=== PATIENT | male | born 1975 | race Caucasian/White ===

== ENCOUNTER 2021-07-09 01:53 | Emergency (ER) | payer MEDICAID, SELFPAY ==
[2021-07-09 02:12] VITALS: BP 131/87; PULSE 78; RESP 16; TEMP 35.9; O2SAT 98; BMI 24.4
[2021-07-09 02:44] VITALS: BP 96/52; PULSE 73; RESP 16; O2SAT 96
--- NOTE | 2021-07-09 02:45 | ED.PSYCH ---
HPI - Psych General Chief Complaint: Psychiatric Symptoms Stated Complaint: SI Time Seen by Provider: 07/09/21 02:45 Source: patient Mode of arrival: ambulatory Limitations: no limitations History of Present Illness HPI Narrative: Patient's history of substance abuse and depression under lot of stress lately has lost his job house no money at this time feels suicidal with plan to hang himself, has not slept in last 2 days no hallucination no delusions Related Data Allergies Allergy/AdvReac Type Severity Reaction Status Date / Time shellfish derived Allergy Severe SWELLING, Unverified 01/07/20 18:11 DIFFICULTY BREATHING Penicillins [PENICILLINS] AdvReac Unknown DEATHLY Unverified 01/07/20 18:11 ILL From CLEOCIN Allergy Unknown REDNESS, Uncoded 01/07/20 18:11 BURNING FEELING Review of Systems Review of Systems: Yes all other systems are reviewed and are negative [facility] Social History Social History Advance Directives: No Physical Exam Vital Signs: Vital Signs: Last Vital Signs Temp 96.7 F L 07/09/21 02:12 Pulse 73 07/09/21 02:44 Resp 16 07/09/21 02:44 BP 96/52 L 07/09/21 02:44 Pulse Ox 96 07/09/21 02:44 BMI result Body Mass Index 24.4 Appearance: Alert. Oriented X3. No acute distress. Eyes: PERRLA, No Nystagmus ENT: Pharynx normal. Oral Mucosa moist Neck: Normal inspection. Neck supple. CVS: Normal heart rate and rhythm. Pulses normal. Respiratory: No respiratory distress. Equal air entry bilateral, no wheezing/rales/rhonchi Abdomen: Soft and nontender. Bowel sounds are present, no mass palpable, no CVA tenderness Skin: Skin warm and dry. Normal skin color. Normal skin turgor. Extremities: No lower extremity edema. No calf tenderness IVDA track seth++ Psych: Feel depressed, suicidal no homicidal hallucinations Neuro: Oriented X 3. No motor deficit. No sensory deficit.No cerebellar signs , cranial nerves II-XII intact MDM - Psych MDM Narrative Medical decision making narrative: Patient urine positive for opiates fentanyl and cocaine and cannabis patient refused to let draw blood to check labs will get crisis to evaluate the patient Lab Data Attestation: I reviewed the patient's lab results. Labs: Lab Results 07/09/21 07/09/21 Range/Units 04:20 05:10 Urine Opiates Screen POSITIVE H (Not Detect) Urine Fentanyl Screen POSITIVE H (Not Detect) Ur Barbiturates Screen Not Detected (Not Detect) Ur Phencyclidine Scrn Not Detected (Not Detect) Ur Amphetamines Screen Not Detected (Not Detect) U Benzodiazepines Scrn Not Detected (Not Detect) Urine Cocaine Screen POSITIVE H (Not Detect) U Marijuana (THC) Screen POSITIVE H (Not Detect) COVID-19 ([facility]ANGELINA) Negative (Negative) COVID-19 Clin Com See Note Discharge Plan Discharge Clinical Impression: Suicidal ideation, Depression, Polysubstance abuse Patient Disposition: Still a Patient
[2021-07-09 04:42] LABS: COVID-19 Test Negative (Negative)
--- NOTE | 2021-07-09 05:02 | PC.NURSE ---
PT refused meds and labs multiple times. PT is currently sleeping in bed.
[2021-07-09 05:30] LABS: Amphetamine Screen Urine Not Detected (Not Detect); Barbiturates, Urine Not Detected (Not Detect); Benzodiazepines Screen Urine Not Detected (Not Detect); Cannabinoid Screen Urine POSITIVE (Not Detect); Cocaine Screen Urine POSITIVE (Not Detect); Fentanyl, urine POSITIVE (Not Detect); Opiate Screen Urine POSITIVE (Not Detect); Phencyclidine Screen Urine Not Detected (Not Detect)
--- NOTE | 2021-07-09 07:36 | MHC.CARE ---
Smart sheet submitted
[2021-07-09 07:41] VITALS: BP 104/63; PULSE 65; RESP 18; O2SAT 100
--- NOTE | 2021-07-09 10:18 | PC.NURSE ---
pt all of a sudden approaches pt observer and sts if i dont get my methadone im going to freak out . pt has been uncooperative w labs and other assessments on overnight shift. continued to refuse blood work this am. does not appear in any obvious distress at this time. sitting upright in bed.
--- NOTE | 2021-07-09 10:32 | MHC.RECOVSUP ---
Recovery Support note: This fiction writer spoke with Josafat at [facility] in [place] who confirms patient last dosed on 07/08/21 and that he received 125mg. Verification form faxed to pharmacy.
[2021-07-09] MEDS: methADONE HCl 20 MG/2 ML ORAL.CONC 125 MG PO (10:53)
--- NOTE | 2021-07-09 19:42 | PC.NURSE ---
patient requesitng to speak with RN, annoyed about plan of care and requesting updates. patient's TV also not functioning in room. patient updated on plan of care and RN attempts to fix TV without success. patient in no obvious distress at this time
[2021-07-09 23:01] VITALS: BP 113/67; PULSE 52; RESP 16; O2SAT 97
[2021-07-10] VITALS: BP 113/67; PULSE 50; RESP 16; TEMP 37.1; O2SAT 96
[2021-07-10] MEDS: LORazepam 1 MG TABLET PO (01:16)
--- NOTE | 2021-07-10 11:00 | PC.NURSE ---
client has been behaving in an abrasive manner, kitchen was late with his meal (one hour to deliver) and methadone had taken some time (nearly two hours) to be ordered. declined to take feet off table when asked, posturing in a threatening way and had asked to leave, this information relayed to care team and provider i only wanted to stay one night advised client to seek other housing if he really didnt have concerns regarding safety and mental health.
[2021-07-10] MEDS: methADONE HCl 20 MG/2 ML ORAL.CONC 125 MG PO (11:13)
[2021-07-10] MEDS: Omeprazole 20 MG CAPSULE.DR PO (13:02)
== END 2021-07-10 15:22 | disposition home or self-care (01) ==
PROVIDERS: Emergency Provider Internal Medicine
DX: F33.1 Major depressive disorder, recurrent, moderate (principal); R45.851 Suicidal ideations; F43.9 Reaction to severe stress, unspecified; F14.10 Cocaine abuse, uncomplicated; Z20.822 Contact with and (suspected) exposure to COVID-19; Z79.899 Other long term (current) drug therapy
CPT/HCPCS: 80307; 87635; 99284

== ENCOUNTER 2021-07-12 03:29 | Inpatient (IN) | payer OTHER, SELFPAY ==
--- NOTE | ~2021-07-12 | XR_ITS ---
EXAMINATION: XR CHEST CLINICAL INFORMATION: Dyspnea. COMPARISON: 09/09/2018 chest radiograph. TECHNIQUE: 2 views of the chest were obtained. FINDINGS: No significant abnormality is noted involving the heart, lungs, mediastinum, bony thorax or soft tissues. XR/XR chest 2V IMPRESSION: No acute cardiopulmonary process.
--- NOTE | ~2021-07-12 | US_ITS ---
EXAMINATION: US VENOUS ULTRASOUND WITH DOPPLER LOWER EXTREMITY, BILATERAL CLINICAL INFORMATION: Swelling. COMPARISON: None TECHNIQUE: Ultrasound of the deep veins is performed from the hip to the calf with compression sonography and color and pulse Doppler assessment. Spectral analysis with color-flow imaging is performed. FINDINGS: RIGHT: There is normal venous compression and respiratory variation and augmented flow. The visualized common femoral vein, superficial femoral vein, profunda femoral vein, popliteal vein, and the trifurcation region shows no evidence of deep venous thrombosis. There is no significant popliteal fossa cyst. LEFT: There is normal venous compression and respiratory variation and augmented flow. The visualized common femoral vein, superficial femoral vein, profunda femoral vein, popliteal vein, and the trifurcation region shows no evidence of deep venous thrombosis. There is no significant popliteal fossa cyst. If the patient's symptoms persist, followup ultrasound in 5 days 7 days might be of value to exclude proximal propagation from a non-visualized calf vein. US/US venous duplex LE BI IMPRESSION: No DVT demonstrated in the bilateral lower extremity.
[2021-07-12 03:45] VITALS: BP 131/85; PULSE 75; RESP 16; TEMP 37.4; O2SAT 97; BMI 23.7
[2021-07-12 04:18] LABS: MANUAL DIFF FLAG NO
[2021-07-12 04:19] LABS: Amphetamine Screen Urine Not Detected (Not Detect); Barbiturates, Urine Not Detected (Not Detect); Benzodiazepines Screen Urine Not Detected (Not Detect); Cannabinoid Screen Urine POSITIVE (Not Detect); Cocaine Screen Urine POSITIVE (Not Detect); Fentanyl, urine POSITIVE (Not Detect); Opiate Screen Urine POSITIVE (Not Detect); Phencyclidine Screen Urine Not Detected (Not Detect)
[2021-07-12 04:28] LABS: COVID-19 Test Negative (Negative)
[2021-07-12 04:30] LABS: Basophils Absolute Auto 0.1 X10*3/uL (0.0-0.2); Basophils Percent Auto 0.6 % (0-2); Eosinophils Absolute Auto 0.1 X10*3/uL (0.0-0.4); Eosinophils Percent Auto 1.7 % (0-4); Hematocrit 42.3 % (42.0-52.0); Hemoglobin 14.2 g/dl (14.0-18.0); Imm Gran Abs Auto 0.02 X10*3/uL (0.00-0.03); Imm Gran Pct Auto 0.2 % (0.0-0.4); Lymphocytes Absolute Auto 2.3 X10*3/uL (1.2-4.9); Lymphocytes Percent Auto 27.6 % (20-40); Mean Corpuscular HGB Conc 33.6 g/dl (31.0-36.0); Mean Corpuscular Hemoglobin 32.5 pg (27.0-33.0); Mean Corpuscular Volume 96.8 fL (80.0-98.0); Mean Platelet Volume 9.8 fL (9.4-12.4); Monocytes Absolute Auto 0.7 X10*3/uL (0.1-1.2); Monocytes Percent Auto 7.9 % (2-11); Neutrophils Absolute Auto 5.2 x10*3/uL (2.0-8.3); Platelet Count 198 X10*3/uL (160-400); Red Blood Count 4.37 X10*6/uL (4.60-5.80); Red Cell Distribution Width 11.9 % (11.0-16.0); White Blood Count 8.4 X10*3/uL (4.8-10.8)
[2021-07-12 04:35] LABS: Ethanol < 10 mg/dL
[2021-07-12 04:36] LABS: Anion Gap 16 (12-20); Blood Urea Nitrogen 18 mg/dL (9-16); Calcium 9.4 mg/dL (8.4-10.2); Carbon Dioxide 26 mmol/L (22-29); Chloride 104 mmol/L (96-108); Creatinine Clr Calc Pharmacy 100.6; Estimated Glomerular Filt Rate > 60; Glucose Random 111 mg/dL (60-115); Sodium 142 mmol/L (135-145)
--- NOTE | 2021-07-12 05:33 | ED.PSYCH ---
HPI - Psych General Chief Complaint: Psychiatric Symptoms Stated Complaint: Crisis Time Seen by Provider: 07/12/21 05:33 Source: patient Mode of arrival: ambulatory History of Present Illness HPI Narrative: 45-year-old male with history of depression and substance use disorder currently on methadone program presents for complaints of depression but denies suicidal ideation, then will change in stay ?I do not have anything to live for?. Otherwise, patient denies any fever, chills, shortness of breath, GI or symptoms. Patient states that he was Narcan and by 2 of his friends yesterday. Related Data Home Medications Medication Instructions Recorded Confirmed methadone 10 mg tablet 125 mg PO DAILY 07/10/21 07/12/21 Allergies Allergy/AdvReac Type Severity Reaction Status Date / Time shellfish derived Allergy Severe SWELLING, Unverified 01/07/20 18:11 DIFFICULTY BREATHING Penicillins [PENICILLINS] AdvReac Unknown DEATHLY Unverified 01/07/20 18:11 ILL From CLEOCIN Allergy Unknown REDNESS, Uncoded 01/07/20 18:11 BURNING FEELING Review of Systems Review of Systems: Pertinent positives and negatives as stated in HPI 10 point review of systems is otherwise negative. [facility] Past Medical History Source: nursing notes reviewed Social History Social History Advance Directives: No Physical Exam Vital Signs: Vital Signs: Last Vital Signs Temp 99.3 F 07/12/21 03:45 Pulse 75 07/12/21 03:45 Resp 16 07/12/21 03:45 BP 131/85 07/12/21 03:45 Pulse Ox 97 07/12/21 03:45 BMI result Body Mass Index 23.7 VITAL SIGNS: Reviewed. GENERAL: Well developed, well nourished, in no acute distress. HEAD: Normocephalic/atraumatic EYES: PERRLA, EOMI OROPHARYNX: no oral lesions noted, posterior pharynx clear LUNGS: Normal breath sounds. No adventitious sounds or accessory muscle use. SpO2<97> CARDIOVASCULAR: Regular rate and rhythm without noted murmurs ABDOMEN: Soft, non-tender, non-distended with bowel sounds. SKIN: Inspection of the skin reveals no rashes NEUROLOGIC: Alert and oriented x 4. Strength and sensation to light touch were grossly intact x 4, cranial nerves 2-12 grossly intact Course Course Course Narrative: 45-year-old male with history of depression and polysubstance use disorder presents with depression and vague suicidal thoughts and states that he is not interested in detox. He is noted be currently in a methadone program and is otherwise medically cleared for further evaluation by the crisis team. Reevaluation(s) Reevaluation #1: Patient placed in physician observation because the patient needed more time for crisis evaluation. At the time observation was started the patient's vital signs were stable, patient is alert and oriented, neuro: Nonfocal, CV RRR, lungs clear Time: 06:10 MDM - Psych Lab Data Result diagrams: 07/12/21 04:09 07/12/21 04:12 Labs: Lab Results 07/12/21 07/12/21 07/12/21 Range/Units 03:55 03:57 04:09 WBC 8.4 (4.8-10.8) X10*3/uL RBC 4.37 L (4.60-5.80) X10*6/uL Hgb 14.2 (14.0-18.0) g/dl Hct 42.3 (42.0-52.0) % MCV 96.8 (80.0-98.0) fL MCH 32.5 (27.0-33.0) pg MCHC 33.6 (31.0-36.0) g/dl RDW 11.9 (11.0-16.0) % Plt Count 198 (160-400) X10*3/uL MPV 9.8 (9.4-12.4) fL Immature Gran % (Auto) 0.2 (0.0-0.4) % Neut % (Auto) 62.0 (45-73) % Lymph % (Auto) 27.6 (20-40) % [place] % (Auto) 7.9 (2-11) % Eos % (Auto) 1.7 (0-4) % Baso % (Auto) 0.6 (0-2) % Lymph # (Auto) 2.3 (1.2-4.9) X10*3/uL [place] # (Auto) 0.7 (0.1-1.2) X10*3/uL Eos # (Auto) 0.1 (0.0-0.4) X10*3/uL Baso # (Auto) 0.1 (0.0-0.2) X10*3/uL Abs Immat Gran (auto) 0.02 (0.00-0.03) X10*3/uL Absolute Neuts (auto) 5.2 (2.0-8.3) x10*3/uL Absolute Nucleated RBC 0.000 (0.0-0.012) X10*3/uL Nucleated RBC % (auto) 0.0 (0.0-0.2) /100WBC Sodium (135-145) mmol/L Potassium (3.3-5.1) mmol/L Chloride (96-108) mmol/L Carbon Dioxide (22-29) mmol/L Anion Gap (12-20) BUN (9-16) mg/dL Creatinine (0.5-1.4) mg/dL Estim Creat Clear Calc Estimated GFR Random Glucose (60-115) mg/dL Calcium (8.4-10.2) mg/dL Urine Opiates Screen POSITIVE H (Not Detect) Urine Fentanyl Screen POSITIVE H (Not Detect) Ur Barbiturates Screen Not Detected (Not Detect) Ur Phencyclidine Scrn Not Detected (Not Detect) Ur Amphetamines Screen Not Detected (Not Detect) U Benzodiazepines Scrn Not Detected (Not Detect) Urine Cocaine Screen POSITIVE H (Not Detect) U Marijuana (THC) Screen POSITIVE H (Not Detect) Ethyl Alcohol mg/dL COVID-19 (EVANGELINA) Negative (Negative) COVID-19 Clin Com See Note 07/12/21 07/12/21 Range/Units 04:09 04:12 WBC (4.8-10.8) X10*3/uL RBC (4.60-5.80) X10*6/uL Hgb (14.0-18.0) g/dl Hct (42.0-52.0) % MCV (80.0-98.0) fL MCH (27.0-33.0) pg MCHC (31.0-36.0) g/dl RDW (11.0-16.0) % Plt Count (160-400) X10*3/uL MPV (9.4-12.4) fL Immature Gran % (Auto) (0.0-0.4) % Neut % (Auto) (45-73) % Lymph % (Auto) (20-40) % [place] % (Auto) (2-11) % Eos % (Auto) (0-4) % Baso % (Auto) (0-2) % Lymph # (Auto) (1.2-4.9) X10*3/uL [place] # (Auto) (0.1-1.2) X10*3/uL Eos # (Auto) (0.0-0.4) X10*3/uL Baso # (Auto) (0.0-0.2) X10*3/uL Abs Immat Gran (auto) (0.00-0.03) X10*3/uL Absolute Neuts (auto) (2.0-8.3) x10*3/uL Absolute Nucleated RBC (0.0-0.012) X10*3/uL Nucleated RBC % (auto) (0.0-0.2) /100WBC Sodium 142 (135-145) mmol/L Potassium 4.0 (3.3-5.1) mmol/L Chloride 104 (96-108) mmol/L Carbon Dioxide 26 (22-29) mmol/L Anion Gap 16 (12-20) BUN 18 H (9-16) mg/dL Creatinine 1.07 (0.5-1.4) mg/dL Estim Creat Clear Calc 100.6 Estimated GFR > 60 Random Glucose 111 (60-115) mg/dL Calcium 9.4 (8.4-10.2) mg/dL Urine Opiates Screen (Not Detect) Urine Fentanyl Screen (Not Detect) Ur Barbiturates Screen (Not Detect) Ur Phencyclidine Scrn (Not Detect) Ur Amphetamines Screen (Not Detect) U Benzodiazepines Scrn (Not Detect) Urine Cocaine Screen (Not Detect) U Marijuana (THC) Screen (Not Detect) Ethyl Alcohol < 10 mg/dL COVID-19 ([facility]ANGELINA) (Negative) COVID-19 Clin Com Discharge Plan Discharge Clinical Impression: Depression, Suicidal ideation, Substance use disorder Patient Disposition: Still a Patient Prescriptions: No Action methadone 10 mg Tablet 125 mg PO DAILY 0RF
--- NOTE | 2021-07-12 06:00 | PC.NURSE ---
Patient stayed awake since he came in, no distress observed/reported, [facility] referral completed/confirmed pending evaluation in the morning, behavior appropriate, patient is currently not on any medication but takes Methadone, Methadone dose verified/copy faxed to pharmacy/provider notified/pending MAR update, VSS, will continue to monitor.
--- NOTE | 2021-07-12 07:16 | PC.NURSE ---
patient appears to remain asleep at present respirations are even and unlabored patient appears in no distress
[2021-07-12] MEDS: methADONE HCl 20 MG/2 ML ORAL.CONC 125 MG PO (13:23)
--- NOTE | 2021-07-12 15:41 | MHC.CARE ---
Assessed by the CARE Team - plan for [facility] bedsearch
[2021-07-12 18:05] VITALS: BP 122/74; PULSE 53; RESP 15; TEMP 36.6; O2SAT 96
--- NOTE | 2021-07-13 | ECG_ITS ---
Test Reason : cocaine use Blood Pressure : / mmHG Vent. Rate : 055 BPM Atrial Rate : 055 BPM P-R Int : 140 ms QRS Dur : 096 ms QT Int : 448 ms P-R-T Axes : 056 017 045 degrees QTc Int : 428 ms Sinus bradycardia Otherwise normal ECG When compared with ECG of 09-SEP-2018 18:50, No significant change was found Referred By: Generic ED Physician Electronically Signed By:LUIS ALFREDO BOONE MD
[2021-07-13 01:27] VITALS: BP 134/79; PULSE 55; RESP 17; TEMP 37; O2SAT 96
--- NOTE | 2021-07-13 05:59 | PC.NURSE ---
Patient slept through the night, no distress observed/reported, behavior appropriate and non concerning, disposition per care team is voluntary inpatient bed search, medication compliant, expressing need well, appetite good, VSS, will continue to monitor.
--- NOTE | 2021-07-13 07:06 | PC.NURSE ---
Care assumed at this time, report from Clayton SMITH. Pt sleeping at this time, resp reg and even, NAD. Plan for admission to [facility], time unk.
[2021-07-13 08:13] VITALS: BP 127/57; PULSE 59; RESP 17; TEMP 37.2; O2SAT 98
[2021-07-13] MEDS: Omeprazole 20 MG CAPSULE.DR PO (09:12)
[2021-07-13] MEDS: methADONE HCl 20 MG/2 ML ORAL.CONC 125 MG PO (09:13)
--- NOTE | 2021-07-13 11:55 | PC.NURSE ---
Report given to Shen SMITH.
[2021-07-13 14:21] VITALS: BP 135/83; PULSE 61; RESP 18; TEMP 36.4; O2SAT 99
--- NOTE | 2021-07-13 14:54 | PC.ADMIT ---
PT admitted to unit from [facility] on a conditional voluntary with a diagnosis of unspecified depressive disorder, adjustment disorder, and opioid use disorder. PT self-presented to the ED for increased depression and SI for the past 2 weeks. PT reports that he lost his job two weeks ago and ended a long time relationship. 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 PT reports that he has been using cocaine and heroin as a way to cope with his depression. Pt is currently on methadone maintenance, pt is not currently on other medications. This it pt's first psychiatric admission, he was calm and cooperative with the admission process but guarded in conversation and tearful at times. PT denies current SI. Tox screen was positive for opiates, fentanyl, cocaine and marijuana. PT is covid negative. 15 minute safety checks initiated for safety.
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
[2021-07-13 18:00] VITALS: BP 154/84; PULSE 62; RESP 16; TEMP 36.7; O2SAT 100
[2021-07-13] MEDS: Nicotine 21 MG PATCH.TD24 TRANSDERMA (18:01)
[2021-07-13] MEDS: hydrOXYzine HCL 50 MG TABLET PO (21:12)
[2021-07-13] MEDS: Mirtazapine 7.5 MG TABLET PO (21:12)
[2021-07-13] MEDS: Gabapentin 100 MG CAPSULE 200 MG PO (21:15)
[2021-07-14] MEDS: diphenhydrAMINE HCL 25 MG TABLET 50 MG PO (02:19)
[2021-07-14] MEDS: methADONE HCl 20 MG/2 ML ORAL.CONC 125 MG PO (09:02)
[2021-07-14] MEDS: Nicotine 21 MG PATCH.TD24 TRANSDERMA (09:02)
[2021-07-14 09:08] VITALS: BP 117/67; PULSE 75; RESP 17; TEMP 36.6; O2SAT 98
[2021-07-14] MEDS: Gabapentin 100 MG CAPSULE 200 MG PO ×2 (12:50→19:27)
[2021-07-14] MEDS: Sertraline HCL 50 MG TABLET PO (12:51)
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
[2021-07-14] MEDS: Omeprazole 20 MG CAPSULE.DR PO (16:32)
--- NOTE | 2021-07-14 16:33 | PC.NURSE ---
Patient has omeprazole ordered Daily at 0630. Patient did not receive dose this morning 07/14/21. Omeprazole requested by patient and administered 07/14/21 at 1630.
[2021-07-14] MEDS: Acetaminophen 325 MG TABLET 650 MG PO (18:25)
[2021-07-14] MEDS: hydrOXYzine HCL 50 MG TABLET PO (18:26)
[2021-07-14 20:38] VITALS: BP 120/73; PULSE 74; TEMP 36.6; O2SAT 100
[2021-07-14] MEDS: cloNIDine HCL 0.1 MG TABLET PO (21:01)
[2021-07-14] MEDS: QUEtiapine Fumarate 50 MG TABLET PO (21:48)
[2021-07-14] MEDS: Mirtazapine 15 MG TABLET PO (21:48)
[2021-07-15] MEDS: Mirtazapine 15 MG TABLET PO ×3 (00:49→22:36)
[2021-07-15] MEDS: QUEtiapine Fumarate 100 MG TABLET PO ×3 (00:49→22:36)
--- NOTE | 2021-07-15 00:57 | PC.ADMIT ---
this is the first M3 admission for this 45 year old male. was a referral from the CARE team from the ER, nurse to nurse and collateral information obtained prior to admission. legal CV. diagnosis: unspecified bipolar d/o. patient did come in into the ER having used alcohol, also endorses using marijuana. patient appears to be minimizing use of both during assessment. on arrival to unit submitted 3 day notice. restraint process utilized in ER but was cooperative to interview. patient does have outpatient providers, has a caustic relationship with his family. did sign releases for providers/insurance and pharmacy. no significant medical issues. does have a laceration on r hand. reports cutting self when intoxicated ''I got hungry and cut myself when I was drunk'' denies this as a SI or self harm attempt. appears to have [address] and intact. medications reconciliation done in the ER. treatment plan, safety tool initiated. oriented to unit.
[2021-07-15] MEDS: methADONE HCl 20 MG/2 ML ORAL.CONC 125 MG PO (08:50)
[2021-07-15] MEDS: Gabapentin 100 MG CAPSULE 200 MG PO ×3 (08:53→22:36)
[2021-07-15] MEDS: Ibuprofen 800 MG TABLET PO ×2 (08:53→20:51)
[2021-07-15] MEDS: Sertraline HCL 50 MG TABLET PO (08:53)
[2021-07-15] MEDS: Omeprazole 20 MG CAPSULE.DR PO (08:54)
[2021-07-15] MEDS: Nicotine 21 MG PATCH.TD24 TRANSDERMA (08:54)
[2021-07-15 09:08] VITALS: BP 121/77; PULSE 104; RESP 16; TEMP 36.4; O2SAT 97
[2021-07-15] MEDS: QUEtiapine Fumarate 50 MG TABLET PO (11:29)
[2021-07-15] MEDS: cloNIDine HCL 0.1 MG TABLET PO ×2 (11:29→20:55)
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
[2021-07-15 20:41] VITALS: BP 110/70; PULSE 75; TEMP 36.4; O2SAT 98
[2021-07-15] MEDS: QUEtiapine Fumarate 200 MG TABLET PO (20:51)
--- NOTE | 2021-07-16 | ECG_ITS ---
Test Reason : qtc Blood Pressure : / mmHG Vent. Rate : 077 BPM Atrial Rate : 077 BPM P-R Int : 142 ms QRS Dur : 098 ms QT Int : 394 ms P-R-T Axes : 074 031 056 degrees QTc Int : 445 ms Normal sinus rhythm Normal ECG When compared with ECG of 13-JUL-2021 08:49, No significant change was found Referred By: Colby Roach Electronically Signed By:LEONARDO MADDOX
[2021-07-16] MEDS: hydrOXYzine HCL 50 MG TABLET PO (03:13)
[2021-07-16] MEDS: QUEtiapine Fumarate 50 MG TABLET PO ×3 (03:13→11:08)
[2021-07-16] MEDS: methADONE HCl 20 MG/2 ML ORAL.CONC 125 MG PO (08:26)
[2021-07-16] MEDS: Sertraline HCL 50 MG TABLET PO (08:28)
[2021-07-16] MEDS: Omeprazole 20 MG CAPSULE.DR PO (08:28)
[2021-07-16] MEDS: Nicotine 21 MG PATCH.TD24 TRANSDERMA (08:32)
[2021-07-16] MEDS: Gabapentin 100 MG CAPSULE 200 MG PO ×2 (08:36→21:17)
[2021-07-16 08:39] VITALS: BP 120/72; PULSE 84; RESP 17; TEMP 36.6; O2SAT 99
[2021-07-16] MEDS: Ibuprofen 800 MG TABLET PO (12:30)
[2021-07-16] MEDS: cloNIDine HCL 0.1 MG TABLET PO (13:58)
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
--- NOTE | 2021-07-16 14:56 | PC.NURSE ---
Pt reported to staff that he feels like his heart is going to burst out of his chest. Vitals assessed, BP 145/85 O2 100% HR 107. Pt was supposed to have an EKG today to assess baseline prior to starting Thorazine. industrial cleaning technician came up to the floor around 1245 but the machine was not working properly. RN followed up with industrial cleaning technician at 1500 but they said they're unable to come to the floor at this time. RN reached out to Dr. Roach who is airconditioning drafting officer, awaiting further orders.
[2021-07-16] MEDS: chlorproMAZINE HCl 100 MG TABLET 50 MG PO (15:30)
[2021-07-16] MEDS: chlorproMAZINE HCl 25 MG TABLET 50 MG PO (16:54)
[2021-07-16] MEDS: chlorproMAZINE HCl 100 MG TABLET PO (21:17)
[2021-07-16] MEDS: Mirtazapine 15 MG TABLET PO (21:17)
[2021-07-17] MEDS: chlorproMAZINE HCl 25 MG TABLET 50 MG PO ×5 (01:31→18:59)
[2021-07-17] MEDS: Mirtazapine 15 MG TABLET PO ×2 (01:31→20:52)
[2021-07-17 08:00] VITALS: BP 131/74; PULSE 93; RESP 20; TEMP 36.6; O2SAT 100
[2021-07-17] MEDS: Sertraline HCL 50 MG TABLET PO (08:22)
[2021-07-17] MEDS: cloNIDine HCL 0.1 MG TABLET PO ×4 (08:22→20:52)
[2021-07-17] MEDS: Omeprazole 20 MG CAPSULE.DR PO (08:22)
[2021-07-17] MEDS: Acetaminophen 325 MG TABLET 650 MG PO (08:23)
[2021-07-17] MEDS: Nicotine 21 MG PATCH.TD24 TRANSDERMA (08:23)
[2021-07-17] MEDS: methADONE HCl 20 MG/2 ML ORAL.CONC 125 MG PO (08:24)
[2021-07-17] MEDS: Gabapentin 100 MG CAPSULE 200 MG PO ×2 (09:28→15:12)
--- NOTE | 2021-07-17 11:45 | HO.ADDICT_ITS ---
History of Present Illness Date of Service: 07/17/2021 Chief Complaint: SI Reason for Consult: methadone dose titration Requesting physician: Hortensia Lawson Sources of Information: patient interviewed and chart reviewed HPI Narrative: Patient is a 46 year old male with OUD currently psychiatrically admitted with depression and suicidal ideation. Patient seen on M3. Awake, alert and engaged in interview. Currently prescribed Methadone 125mg daily. Patient reports that he was previously at 150mg and started to taper dose about a month or two ago. He states he feels he needs to increase back to previous dose due to ongoing cravings and recent use after 18 months in recovery. He is a patient of [facility] This technical proposal writer spoke to Provider at [facility] and confirmed that patient was previously at 145mg. Past Psychiatric History: Past meds: seroquel (says he had wt gain, did not like it), trazodone (did not like), clonidine (doesnt help), elavil, lithium, tegretol, depakote Review of Systems Constitutional: Reports as per HPI and Reports difficulty sleeping Gastrointestinal: Denies loose stools and Denies nausea Psychiatric: Reports irritability and Reports anhedonia Diagnostics Vital Signs (24Hr): Vital Signs - 24 hr 07/17/21 08:00 Temperature 97.8 F Pulse Rate 93 Respiratory Rate 20 Blood Pressure 131/74 Pulse Oximetry 100 BMI result Body Mass Index 23.7 Labs Results: 07/12/21 04:09 07/12/21 04:12 EKG EKG: reviewed Mental Status Exam Mental Status Exam Patient Appearance: Appropriate Level of Consciousness: Awake and Appropriate Patient Behavior: Appropriate Mood Description: Constricted Affect Description: Constricted Patient Cognition Impaired: No Speech Pattern: Clear Thought Process: Intact and Goal Oriented Thought Content: positive for Goal Oriented Medications Medications Current Medications Acetaminophen (Acetaminophen 325 Mg Tablet) 650 mg PO Q6H PRN PRN Reason: Headache/Pain Mild Scale (1-3) Last Admin: 07/17/21 08:23 Dose: 650 mg Documented by: Al Hydroxide/Mg Hydroxide (Magnesium Hydrox/Alum Hydrox 30 Ml Oral.Susp) 30 ml PO Q6H PRN PRN Reason: Heartburn/Nausea Chlorpromazine HCl (Chlorpromazine Hcl 100 Mg Tablet) 100 mg PO BEDTIME [facility] Last Admin: 07/16/21 21:17 Dose: 100 mg Documented by: Chlorpromazine HCl (Chlorpromazine Hcl 25 Mg Tablet) 50 mg PO DAILY@1700 [facility] Last Admin: 07/16/21 16:54 Dose: 50 mg Documented by: Chlorpromazine HCl (Chlorpromazine Hcl 25 Mg Tablet) 50 mg PO DAILY [facility] Last Admin: 07/17/21 08:23 Dose: 50 mg Documented by: Chlorpromazine HCl (Chlorpromazine Hcl 25 Mg Tablet) 50 mg PO QID PRN PRN Reason: agitation Last Admin: 07/17/21 09:27 Dose: 50 mg Documented by: Clonidine HCl (Clonidine Hcl 0.1 Mg Tablet) 0.1 mg PO Q2H PRN; Protocol PRN Reason: opioid withdrawal or anxiety Clonidine HCl (Clonidine Hcl 0.1 Mg Tablet) 0.1 mg PO TID [facility]; Protocol Dicyclomine HCl (Dicyclomine Hcl 10 Mg Capsule) 10 mg PO Q4H PRN PRN Reason: cramping Gabapentin (Gabapentin 100 Mg Capsule) 200 mg PO Q6H PRN PRN Reason: anxiety Last Admin: 07/17/21 09:28 Dose: 200 mg Documented by: Hydroxyzine HCl (Hydroxyzine Hcl 50 Mg Tablet) 50 mg PO Q4H PRN PRN Reason: Anxiety Last Admin: 07/16/21 03:13 Dose: 50 mg Documented by: Ibuprofen (Ibuprofen 800 Mg Tablet) 800 mg PO Q6H PRN PRN Reason: aches Last Admin: 07/16/21 12:30 Dose: 800 mg Documented by: Magnesium Hydroxide (Milk Of Magnesia 30 Ml Oral.Susp) 30 ml PO DAILY PRN PRN Reason: Constipation Methadone HCl (Methadone Hcl 20 Mg/2 Ml Oral.Conc) 130 mg PO DAILY [facility] Mirtazapine (Mirtazapine 15 Mg Tablet) 15 mg PO BEDTIME [facility] Last Admin: 07/16/21 21:17 Dose: 15 mg Documented by: Mirtazapine (Mirtazapine 15 Mg Tablet) 15 mg PO BEDTIME PRN PRN Reason: insomnia Last Admin: 07/17/21 01:31 Dose: 15 mg Documented by: Nicotine (Nicotine 21 Mg Patch.Td24) 21 mg TRANSDERMA DAILY [facility] Last Admin: 07/17/21 08:23 Dose: 21 mg Documented by: Nicotine Polacrilex (Nicotine Polacrilex 2 Mg Gum) 4 mg BUCCAL Q2H PRN PRN Reason: Nicotine Cravings Omeprazole (Omeprazole 20 Mg Capsule.) 20 mg PO DAILY@0630 [facility] Last Admin: 07/17/21 08:22 Dose: 20 mg Documented by: Sertraline HCl (Sertraline Hcl 50 Mg Tablet) 50 mg PO DAILY [facility] Last Admin: 07/17/21 08:22 Dose: 50 mg Documented by: Allergies Allergies Allergy/AdvReac Type Severity Reaction Status Date / Time shellfish derived Allergy Severe SWELLING, Unverified 01/07/20 18:11 DIFFICULTY BREATHING Penicillins [PENICILLINS] AdvReac Unknown DEATHLY Unverified 01/07/20 18:11 ILL From CLEOCIN Allergy Unknown REDNESS, Uncoded 01/07/20 18:11 BURNING FEELING Assessment & Plan Assessment & Plan (1) Opioid use disorder: Status: Acute Code(s): F11.90 - Opioid use, unspecified, uncomplicated Assessment and Plan: * EKG and medication list reviewed--methadone increase by 5mg. 130mg starting tomorrow 07/17 * Follow up 2 days and increase to 135mg if patient agrees and appropriate I spent __45____ minutes with the patient and/or on the patient floor today, greater than?50% of which was spent counseling/coordinating care. [facility] Past Medical History Medical History (Updated 07/17/21 @ 12:13 by Lindy Trevino CNP) Opioid use disorder, moderate, in early remission, on maintenance therapy Social History Social History Household Members: Spouse Housing: Apartment Do you presently have visiting nurse or other home services: No Patient Tobacco Use Status: Current everyday Tobacco user Tobacco use type: Cigarette Cigarette Packs Per Day: 1 Cigarettes Per Day: 20.0 Smoked in Last 30 Days: Yes Patient Interested in Nicotine Replacement: Yes (patch and gum) Patient Given Instructions on How to Stop Smoking: No (pt declined) Second Hand Smoke Exposure: Yes Use of substances other than those prescribed or required for medical reasons: Yes Substance Use Type: Crack/Cocaine and Heroin Substance Use Frequency: Daily Last Used Substance: Days (ago) Currently Displaying Signs/Symptoms of Drug Intoxication Withdrawal: No Any prior treatment program specific to substance use: Yes Have you been hit, kicked, punched, or otherwise hurt by someone within the past year? If so, by whom?: No Do you feel safe in your current relationship?: Yes Is there a partner from a previous relationship who is making you feel unsafe now?: No Are you made to feel afraid or neglected: No Spiritual Healthcare Practices: n/a Sabianism Healthcare Practices: n/a Cultural Healthcare Practices: n/a Advance Directives: No Healthcare Proxy: No Guardian: No Do you have thoughts of harming others: None Do you have a plan to hurt others: No Plan Recently lost weight without trying: Unsure How much weight loss: Unsure Eating poorly because of decreased appetite: Yes Nutrition screen score: 5 Nutrition Risks: Poor intake 0-25% >4 days Poor oral hygiene: No service: No Sexual orientation: Straight/Heterosexual
[2021-07-17 12:40] VITALS: BP 119/72; PULSE 99; RESP 8
[2021-07-17] MEDS: hydrOXYzine HCL 50 MG TABLET PO (12:40)
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
[2021-07-17 15:07] VITALS: BP 104/74; PULSE 103; RESP 18; O2SAT 98
[2021-07-17] MEDS: Milk of Magnesia 30 ML ORAL.SUSP PO (15:12)
[2021-07-17 20:45] VITALS: BP 99/60; PULSE 85; RESP 18; TEMP 36.3; O2SAT 98
[2021-07-17] MEDS: chlorproMAZINE HCl 100 MG TABLET PO (20:52)
[2021-07-18] MEDS: Mirtazapine 15 MG TABLET PO ×2 (00:30→21:19)
[2021-07-18] MEDS: chlorproMAZINE HCl 25 MG TABLET 50 MG PO ×5 (00:30→16:24)
[2021-07-18] MEDS: Gabapentin 100 MG CAPSULE 200 MG PO ×2 (00:30→11:30)
[2021-07-18] MEDS: hydrOXYzine HCL 50 MG TABLET PO ×4 (00:30→16:23)
[2021-07-18] MEDS: cloNIDine HCL 0.1 MG TABLET PO ×5 (03:54→21:17)
[2021-07-18] MEDS: Nicotine 21 MG PATCH.TD24 TRANSDERMA (09:02)
[2021-07-18] MEDS: Milk of Magnesia 30 ML ORAL.SUSP PO (09:03)
[2021-07-18] MEDS: methADONE HCl 20 MG/2 ML ORAL.CONC 130 MG PO (09:03)
[2021-07-18] MEDS: Omeprazole 20 MG CAPSULE.DR PO (09:04)
[2021-07-18] MEDS: Acetaminophen 325 MG TABLET 650 MG PO (09:04)
[2021-07-18] MEDS: Sertraline HCL 50 MG TABLET PO (09:05)
[2021-07-18 09:08] VITALS: BP 106/70; PULSE 80; RESP 18; TEMP 36.3; O2SAT 98
[2021-07-18] MEDS: Ibuprofen 800 MG TABLET PO ×2 (14:23→21:18)
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
[2021-07-18] MEDS: Magnesium Citrate 300 ML SOLUTION PO (19:20)
[2021-07-18] MEDS: Gabapentin 300 MG CAPSULE PO (19:20)
[2021-07-18 21:10] VITALS: BP 110/60; PULSE 78; RESP 16; TEMP 36.5; O2SAT 98
[2021-07-18] MEDS: chlorproMAZINE HCl 100 MG TABLET 200 MG PO (21:17)
[2021-07-19] MEDS: cloNIDine HCL 0.1 MG TABLET PO ×4 (03:44→20:45)
[2021-07-19] MEDS: chlorproMAZINE HCl 25 MG TABLET 50 MG PO ×4 (03:44→17:00)
[2021-07-19] MEDS: hydrOXYzine HCL 50 MG TABLET PO ×3 (03:45→17:00)
[2021-07-19 08:05] VITALS: BP 110/68; PULSE 76; RESP 16; TEMP 36.4; O2SAT 99
[2021-07-19] MEDS: Nicotine 21 MG PATCH.TD24 TRANSDERMA (08:17)
[2021-07-19] MEDS: Sertraline HCL 100 MG TABLET PO (08:18)
[2021-07-19] MEDS: Omeprazole 20 MG CAPSULE.DR PO (08:18)
[2021-07-19] MEDS: methADONE HCl 20 MG/2 ML ORAL.CONC 130 MG PO (08:20)
[2021-07-19] MEDS: Gabapentin 300 MG CAPSULE PO ×2 (08:24→11:51)
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
[2021-07-19 20:36] VITALS: BP 111/64; PULSE 89; TEMP 36.6; O2SAT 96
[2021-07-19] MEDS: Gabapentin 300 MG CAPSULE 600 MG PO (20:44)
[2021-07-19] MEDS: Ibuprofen 800 MG TABLET PO (20:44)
[2021-07-19] MEDS: chlorproMAZINE HCl 100 MG TABLET 200 MG PO (20:45)
[2021-07-19] MEDS: Mirtazapine 15 MG TABLET PO (20:45)
[2021-07-20] MEDS: hydrOXYzine HCL 50 MG TABLET PO ×3 (00:04→15:05)
[2021-07-20] MEDS: Mirtazapine 15 MG TABLET PO ×2 (00:04→21:36)
[2021-07-20] MEDS: chlorproMAZINE HCl 25 MG TABLET 50 MG PO ×5 (00:04→17:35)
[2021-07-20 04:09] VITALS: BP 122/70; PULSE 86
[2021-07-20] MEDS: cloNIDine HCL 0.1 MG TABLET PO ×5 (04:14→17:35)
[2021-07-20] MEDS: Omeprazole 20 MG CAPSULE.DR PO (06:19)
[2021-07-20 07:00] VITALS: BMI 27.6
[2021-07-20 08:10] VITALS: BP 122/63; PULSE 91; RESP 16; TEMP 36.8; O2SAT 98
[2021-07-20] MEDS: Nicotine 21 MG PATCH.TD24 TRANSDERMA (08:19)
[2021-07-20] MEDS: Gabapentin 300 MG CAPSULE 600 MG PO ×2 (08:20→20:21)
[2021-07-20] MEDS: Sertraline HCL 100 MG TABLET PO (08:21)
[2021-07-20] MEDS: methADONE HCl 20 MG/2 ML ORAL.CONC 135 MG PO (08:22)
[2021-07-20 12:26] VITALS: BP 120/74; PULSE 104
[2021-07-20] MEDS: Acetaminophen 325 MG TABLET 650 MG PO (12:28)
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
[2021-07-20 17:32] VITALS: BP 131/77; PULSE 97
[2021-07-20] MEDS: Nicotine Polacrilex 2 MG GUM 4 MG BUCCAL (17:35)
[2021-07-20] MEDS: Ibuprofen 800 MG TABLET PO (20:21)
[2021-07-20] MEDS: Benztropine Mesylate 0.5 MG TABLET PO (20:21)
[2021-07-20] MEDS: cloNIDine HCL 0.2 MG TABLET PO (21:35)
[2021-07-20] MEDS: chlorproMAZINE HCl 100 MG TABLET 200 MG PO (21:35)
[2021-07-20 21:38] VITALS: BP 109/65; PULSE 80; TEMP 36.6; O2SAT 99
--- NOTE | 2021-07-21 | ECG_ITS ---
Test Reason : edema, leg pain Blood Pressure : / mmHG Vent. Rate : 072 BPM Atrial Rate : 072 BPM P-R Int : 142 ms QRS Dur : 102 ms QT Int : 416 ms P-R-T Axes : 068 025 041 degrees QTc Int : 455 ms Normal sinus rhythm Normal ECG When compared with ECG of 16-JUL-2021 15:54, No significant change was found Referred By: Silviano Dowd Electronically Signed By:LEONARDO MADDOX
[2021-07-21 04:20] VITALS: BP 119/69; PULSE 85
[2021-07-21] MEDS: hydrOXYzine HCL 50 MG TABLET PO ×4 (04:21→23:19)
[2021-07-21] MEDS: cloNIDine HCL 0.1 MG TABLET PO ×3 (04:21→14:07)
[2021-07-21] MEDS: Benztropine Mesylate 0.5 MG TABLET PO ×2 (04:22→15:34)
[2021-07-21] MEDS: Omeprazole 20 MG CAPSULE.DR PO (06:18)
[2021-07-21] MEDS: Ibuprofen 800 MG TABLET PO ×3 (06:24→20:45)
[2021-07-21 08:00] VITALS: BP 120/75; PULSE 97; RESP 17; TEMP 36.3; O2SAT 99
[2021-07-21] MEDS: Gabapentin 300 MG CAPSULE 600 MG PO ×3 (08:12→20:44)
[2021-07-21] MEDS: chlorproMAZINE HCl 25 MG TABLET 50 MG PO (08:12)
[2021-07-21] MEDS: Sertraline HCL 100 MG TABLET PO (08:12)
[2021-07-21] MEDS: methADONE HCl 20 MG/2 ML ORAL.CONC 135 MG PO (08:13)
[2021-07-21] MEDS: Nicotine 21 MG PATCH.TD24 TRANSDERMA (08:14)
[2021-07-21] MEDS: QUEtiapine Fumarate 100 MG TABLET PO ×3 (11:55→23:18)
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
[2021-07-21 18:00] VITALS: BP 115/68; PULSE 92; RESP 18; TEMP 36.8
[2021-07-21] MEDS: cloNIDine HCL 0.1 MG TABLET 0.3 MG PO (20:43)
[2021-07-21] MEDS: QUEtiapine Fumarate 300 MG TABLET PO (20:44)
[2021-07-21] MEDS: Mirtazapine 15 MG TABLET PO ×2 (21:11→23:19)
[2021-07-21] MEDS: Acetaminophen 325 MG TABLET 650 MG PO (23:18)
--- NOTE | 2021-07-22 01:43 | PC.NURSE ---
Pt was c/o sweelling in legs. Went to Ultrasound for venous doppler. Came back negative for DVT. Exhausted his pain meds and pt is become very very agitated and aggressive. fisher scallop notified at 0145.
[2021-07-22] MEDS: LORazepam 1 MG TABLET 2 MG PO ×2 (02:04→20:11)
[2021-07-22] MEDS: Cyclobenzaprine HCl 5 MG TABLET PO ×3 (02:12→20:03)
[2021-07-22] MEDS: Ibuprofen 800 MG TABLET PO ×2 (02:13→21:45)
[2021-07-22] MEDS: Benztropine Mesylate 1 MG TABLET PO ×2 (03:15→23:40)
[2021-07-22] MEDS: QUEtiapine Fumarate 100 MG TABLET PO ×2 (06:02→23:40)
[2021-07-22] MEDS: hydrOXYzine HCL 50 MG TABLET PO ×3 (06:02→23:40)
[2021-07-22] MEDS: Omeprazole 20 MG CAPSULE.DR PO (06:02)
[2021-07-22] MEDS: Acetaminophen 325 MG TABLET 650 MG PO ×3 (06:04→23:40)
[2021-07-22] MEDS: Benztropine Mesylate 0.5 MG TABLET PO (06:05)
[2021-07-22 09:30] VITALS: BP 107/68; PULSE 113; RESP 18; TEMP 36.3; O2SAT 99
[2021-07-22] MEDS: Sertraline HCL 100 MG TABLET PO (09:44)
[2021-07-22] MEDS: Gabapentin 300 MG CAPSULE 600 MG PO ×3 (09:45→20:03)
[2021-07-22] MEDS: cloNIDine HCL 0.1 MG TABLET PO ×2 (09:45→23:40)
[2021-07-22] MEDS: methADONE HCl 20 MG/2 ML ORAL.CONC 135 MG PO (09:46)
[2021-07-22] MEDS: Nicotine 21 MG PATCH.TD24 TRANSDERMA (09:53)
[2021-07-22 11:36] VITALS: BP 118/74; PULSE 96; RESP 18; O2SAT 98
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
[2021-07-22 12:50] LABS: Anion Gap 15 (12-20); Blood Urea Nitrogen 18 mg/dL (9-16); Calcium 9.2 mg/dL (8.4-10.2); Carbon Dioxide 27 mmol/L (22-29); Chloride 103 mmol/L (96-108); Estimated Glomerular Filt Rate > 60; Glucose Random 138 mg/dL (60-115); Potassium 4.4 mmol/L (3.3-5.1); Sodium 141 mmol/L (135-145)
[2021-07-22 12:59] LABS: B Type Natriuretic Peptide 35 pg/mL (<100)
[2021-07-22] MEDS: Furosemide 40 MG TABLET PO (13:17)
--- NOTE | 2021-07-22 14:12 | PC.NURSE ---
Patient at xray w/ staff.
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
[2021-07-22 19:54] VITALS: BP 127/72; PULSE 97; RESP 18; TEMP 36.4; O2SAT 98
[2021-07-22] MEDS: Mirtazapine 15 MG TABLET PO ×2 (20:03→23:40)
[2021-07-22] MEDS: QUEtiapine Fumarate 300 MG TABLET PO (20:03)
[2021-07-23] MEDS: LORazepam 1 MG TABLET 2 MG PO ×2 (02:08→08:26)
[2021-07-23] MEDS: Cyclobenzaprine HCl 5 MG TABLET PO (02:09)
[2021-07-23] MEDS: Omeprazole 20 MG CAPSULE.DR PO (06:34)
[2021-07-23] MEDS: Ibuprofen 800 MG TABLET PO ×2 (06:34→19:38)
[2021-07-23] MEDS: QUEtiapine Fumarate 100 MG TABLET PO ×2 (06:34→19:38)
[2021-07-23] MEDS: Gabapentin 300 MG CAPSULE 600 MG PO (08:24)
[2021-07-23] MEDS: Furosemide 40 MG TABLET PO (08:26)
[2021-07-23] MEDS: Sertraline HCL 100 MG TABLET PO (08:27)
[2021-07-23] MEDS: Nicotine 21 MG PATCH.TD24 TRANSDERMA (08:27)
[2021-07-23] MEDS: methADONE HCl 20 MG/2 ML ORAL.CONC 135 MG PO (08:29)
[2021-07-23 08:37] VITALS: BP 126/75; PULSE 120; RESP 18; TEMP 36.5; O2SAT 99
--- NOTE | 2021-07-23 12:19 | PC.NURSE ---
Late entry: 10:00 Patient appears increasingly confused, agitated, sedated. Requesting a 'sewing kit' and per staff report, unable to locate his room. When asked re: confusion, patient became angry, hostile, completed a 3 day notice in which he reported that his current address is [facility] and that he wanted to be transferred to 'another halfway.' Dr. Dowd aware.
[2021-07-23 13:13] VITALS: BP 128/81; PULSE 110; RESP 18; O2SAT 98
--- NOTE | 2021-07-23 15:30 | PC.NURSE ---
Compression stockings obtained and applied, patient educated on use of stockings. Patient continues to be irritable, but appears much less confused, now oriented x 3.
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
[2021-07-23 19:27] VITALS: BP 141/90; PULSE 108; RESP 18
[2021-07-23] MEDS: Mirtazapine 15 MG TABLET PO ×2 (19:31→19:38)
[2021-07-23] MEDS: cloNIDine HCL 0.1 MG TABLET 0.3 MG PO (19:31)
[2021-07-23] MEDS: QUEtiapine Fumarate 300 MG TABLET PO (19:32)
[2021-07-23] MEDS: LORazepam 1 MG TABLET PO (19:32)
[2021-07-23] MEDS: Acetaminophen 325 MG TABLET 650 MG PO (19:38)
--- NOTE | 2021-07-23 21:37 | PC.NURSE ---
About 1.5 hours med administration patient asked this nurse to check out his room. Patient thinks that someone is stealing from his room, and believes that another patient is sneaking in to use his bathroom and not flush. Patient is alert and oriented x2. notified. Will continue to monitor.
[2021-07-24 02:10] VITALS: BP 122/70; PULSE 100; RESP 18; TEMP 36.6; O2SAT 99
[2021-07-24] MEDS: Ibuprofen 800 MG TABLET PO ×3 (02:14→20:08)
[2021-07-24] MEDS: QUEtiapine Fumarate 100 MG TABLET PO ×3 (02:15→23:11)
[2021-07-24] MEDS: hydrOXYzine HCL 50 MG TABLET PO ×3 (02:15→23:11)
[2021-07-24] MEDS: cloNIDine HCL 0.1 MG TABLET PO ×4 (02:15→23:11)
[2021-07-24 08:07] VITALS: BP 118/71; PULSE 100; RESP 18; TEMP 36.4; O2SAT 98
[2021-07-24] MEDS: Nicotine 21 MG PATCH.TD24 TRANSDERMA (08:14)
[2021-07-24] MEDS: LORazepam 1 MG TABLET PO ×2 (08:16→16:34)
[2021-07-24] MEDS: Omeprazole 20 MG CAPSULE.DR PO (08:16)
[2021-07-24] MEDS: Sertraline HCL 100 MG TABLET PO (08:16)
[2021-07-24] MEDS: methADONE HCl 20 MG/2 ML ORAL.CONC 135 MG PO (08:18)
[2021-07-24] MEDS: Magnesium Hydrox/Alum Hydrox 30 ML ORAL.SUSP PO (11:20)
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
[2021-07-24] MEDS: Pregabalin 50 MG CAPSULE PO ×2 (14:25→20:08)
[2021-07-24 18:00] VITALS: BP 117/66; PULSE 102; RESP 18; TEMP 36.7; O2SAT 98
--- NOTE | 2021-07-24 18:10 | PC.NURSE ---
Patient had angry outburst in late afternoon due to reporting that his cell phone is missing. Cell phone was not listed on patient belongings list nor was it found in patient belongings in closets. Security came to unit to speak with patient. Ania notified of situation.
[2021-07-24] MEDS: Mirtazapine 15 MG TABLET PO ×2 (20:08)
[2021-07-24] MEDS: QUEtiapine Fumarate 300 MG TABLET PO (20:08)
[2021-07-24] MEDS: cloNIDine HCL 0.1 MG TABLET 0.3 MG PO (20:08)
[2021-07-24] MEDS: Acetaminophen 325 MG TABLET 650 MG PO (20:55)
[2021-07-24] MEDS: Aspirin 81 MG TAB.CHEW 243 MG PO (21:54)
[2021-07-24] MEDS: Clotrimazole 1 % Cream 15 GM TUBE 1 APPL TOPICAL (21:54)
[2021-07-24 23:11] VITALS: BP 122/76; PULSE 80
[2021-07-25 02:09] VITALS: BP 122/74; PULSE 90
[2021-07-25] MEDS: cloNIDine HCL 0.1 MG TABLET PO ×3 (02:12→13:58)
[2021-07-25] MEDS: hydrOXYzine HCL 50 MG TABLET PO (04:38)
[2021-07-25] MEDS: QUEtiapine Fumarate 100 MG TABLET PO (04:38)
[2021-07-25] MEDS: Ibuprofen 800 MG TABLET PO (06:37)
[2021-07-25] MEDS: Acetaminophen 325 MG TABLET 650 MG PO (06:37)
[2021-07-25] MEDS: Omeprazole 20 MG CAPSULE.DR PO (06:37)
[2021-07-25] MEDS: Nicotine 21 MG PATCH.TD24 TRANSDERMA (08:46)
[2021-07-25] MEDS: Pregabalin 50 MG CAPSULE PO (08:46)
[2021-07-25] MEDS: Sertraline HCL 100 MG TABLET PO (08:47)
[2021-07-25] MEDS: methADONE HCl 20 MG/2 ML ORAL.CONC 135 MG PO (08:47)
[2021-07-25] MEDS: Clotrimazole 1 % Cream 15 GM TUBE 1 APPL TOPICAL ×2 (08:55→23:28)
[2021-07-25 08:59] VITALS: BP 110/60; PULSE 92; RESP 18; TEMP 36.6
[2021-07-25 12:39] VITALS: BP 132/71; PULSE 77; RESP 18; TEMP 34.9; O2SAT 98
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
--- NOTE | 2021-07-25 13:07 | PC.NURSE ---
Patient complaining of not feeling well. Presenting with diaphoresis, nausea no vomiting, ankle edema, cotton mouth , red tongue c/o it hurts , confusion I thought it was dinner time . Dr. Dowd notified of symptoms. COVID swab ordered.
[2021-07-25 14:10] LABS: COVID-19 Test Negative (Negative); IDNOW Serial# 16C4AD1C
--- NOTE | 2021-07-25 17:11 | PC.NURSE ---
Patient with angry outburst following inability to provide PRN medication. Swearing, threatening, demanding discharge. Staff with patient at this time attempting to de escalate patient. Unable to accept rationale for medication changes. Stating He better give me my fucking meds, he's a piece of shit, every fucking day he does this shit. I need my fucking meds .
[2021-07-25] MEDS: OLANZapine 5 MG TABLET PO ×3 (17:29→23:30)
--- NOTE | 2021-07-25 18:14 | PC.NURSE ---
Patient continues agitated, stating I am going to loose my fucking shit . I can't even eat . Patient sitting in community area watching tv at this time .
--- NOTE | 2021-07-25 18:33 | PC.NURSE ---
Patient continues demanding, states Olanzapine was like a skittle It did nothing . Don't you understand I don't feel good. Something is going to happen. I am going to have a panic attack .
--- NOTE | 2021-07-25 18:41 | PC.NURSE ---
Patient continues agitated. Threatening, distorting staff interventions, stating grant writer has not communicated how uncomfortable he is. Continues to yell, pace, posture. Talking with staff at this time.
[2021-07-25] MEDS: Mirtazapine 15 MG TABLET PO ×2 (20:35→23:30)
[2021-07-25] MEDS: QUEtiapine Fumarate 300 MG TABLET PO (20:35)
[2021-07-25] MEDS: cloNIDine HCL 0.1 MG TABLET 0.3 MG PO (20:35)
[2021-07-25 20:38] VITALS: BP 112/60; PULSE 89; TEMP 36.7; O2SAT 99
[2021-07-25] MEDS: Magnesium Citrate 300 ML SOLUTION PO (21:22)
[2021-07-26] MEDS: Ibuprofen 800 MG TABLET PO (02:46)
--- NOTE | 2021-07-26 03:41 | PC.NURSE ---
ordered mad. citrate for constipation. only took 1/2 bottle.
[2021-07-26] MEDS: OLANZapine 5 MG TABLET PO ×3 (04:06→12:51)
[2021-07-26] MEDS: Omeprazole 20 MG CAPSULE.DR PO (06:32)
[2021-07-26 07:40] VITALS: BP 116/64; PULSE 73; RESP 16; TEMP 36.6; O2SAT 98
[2021-07-26] MEDS: Nicotine 21 MG PATCH.TD24 TRANSDERMA (08:00)
[2021-07-26] MEDS: cloNIDine HCL 0.1 MG TABLET PO ×4 (08:00→20:53)
[2021-07-26] MEDS: Sertraline HCL 100 MG TABLET PO (08:00)
[2021-07-26] MEDS: methADONE HCl 20 MG/2 ML ORAL.CONC 135 MG PO (08:04)
[2021-07-26] MEDS: Gabapentin 300 MG CAPSULE PO ×2 (14:43→20:53)
[2021-07-26 15:51] LABS: Alanine Aminotransferase 106 U/L (0-40); Albumin Level 4.1 g/dL (3.5-5.0); Alkaline Phosphatase 123 U/L (39-117); Anion Gap 12 (12-20); Aspartate Amino Transferase 68 U/L (5-37); Bilirubin Total 0.5 mg/dL (0.0-1.0); Blood Urea Nitrogen 17 mg/dL (9-16); Calcium 9.1 mg/dL (8.4-10.2); Carbon Dioxide 32 mmol/L (22-29); Chloride 101 mmol/L (96-108); Creatinine Clr Calc Pharmacy 115.7; Estimated Glomerular Filt Rate > 60; Glucose Random 112 mg/dL (60-115); Potassium 4.7 mmol/L (3.3-5.1); Sodium 140 mmol/L (135-145); Total Protein 6.5 g/dL (6.5-8.0)
[2021-07-26] MEDS: QUEtiapine Fumarate 50 MG TABLET PO (17:33)
[2021-07-26 20:46] VITALS: BP 115/65; PULSE 69; TEMP 36.9; O2SAT 98
[2021-07-26] MEDS: QUEtiapine Fumarate 200 MG TABLET PO (20:53)
[2021-07-26] MEDS: Mirtazapine 30 MG TABLET PO (20:54)
[2021-07-26] MEDS: Clotrimazole 1 % Cream 15 GM TUBE 1 APPL TOPICAL (21:08)
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
[2021-07-26] MEDS: Acetaminophen 325 MG TABLET 650 MG PO (23:13)
[2021-07-27] MEDS: QUEtiapine Fumarate 50 MG TABLET PO ×2 (00:20→06:35)
[2021-07-27] MEDS: Omeprazole 20 MG CAPSULE.DR PO (06:35)
[2021-07-27 08:00] VITALS: BP 117/65; PULSE 76; RESP 16; TEMP 36.4; O2SAT 98
[2021-07-27] MEDS: Nicotine 21 MG PATCH.TD24 TRANSDERMA (08:17)
[2021-07-27] MEDS: Sertraline HCL 100 MG TABLET PO (08:18)
[2021-07-27] MEDS: Gabapentin 300 MG CAPSULE PO (08:18)
[2021-07-27] MEDS: Furosemide 20 MG TABLET PO (08:19)
[2021-07-27] MEDS: cloNIDine HCL 0.1 MG TABLET PO (08:19)
[2021-07-27] MEDS: Clotrimazole 1 % Cream 15 GM TUBE 1 APPL TOPICAL (08:19)
[2021-07-27] MEDS: methADONE HCl 20 MG/2 ML ORAL.CONC 135 MG PO (08:20)
[2021-07-27] MEDS: Naloxone HCl Nasal TAKE HOME 4 MG SPRAY NOSTRILALT (10:51)
[2021-07-27] MEDS: Propranolol HCL 20 MG TABLET PO (10:52)
--- NOTE | 2021-07-27 11:19 | PC.NURSE ---
Patient is alert, fully oriented, pleasant and cooperative with discharge process. Patient denies ideation, plan or intent to harm self or others. He denies perceptual disturbance. He verbalizes understanding of discharge plan including disposition at [facility], follow up appointments and discharge, medications. He reports edema and is using teds put denies other physical complaint.
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
== END 2021-07-27 11:15 | disposition other institution (70) | DRG 751 ==
LOC: HO.ED 06:11 → HO.PADLT16 07-13 12:49
PROVIDERS: Family Medicine; Psychiatry & Neurology Psychiatry; Admitting Provider Psychiatry & Neurology Psychiatry; Emergency Provider Student in an Organized Health Care Education/Training Program; Visit Provider Psychiatry & Neurology Psychiatry
DX: F33.1 Major depressive disorder, recurrent, moderate (principal); R45.851 Suicidal ideations; F11.20 Opioid dependence, uncomplicated; F17.210 Nicotine dependence, cigarettes, uncomplicated; F43.10 Post-traumatic stress disorder, unspecified; K21.9 Gastro-esophageal reflux disease without esophagitis; F43.23 Adjustment disorder with mixed anxiety and depressed mood; Z91.51 Personal history of suicidal behavior; Z87.820 Personal history of traumatic brain injury; Z71.6 Tobacco abuse counseling; Z20.822 Contact with and (suspected) exposure to COVID-19; Z91.013 Allergy to seafood; Z88.0 Allergy status to penicillin; Z79.899 Other long term (current) drug therapy
CPT/HCPCS: 36415; 71046; 80048; 80053; 80307; 82077; 83880; 85025; 87635; 93005; 93970; 99285; Q0163

== ENCOUNTER 2021-08-22 16:23 | Inpatient (IN) | payer OTHER, SELFPAY ==
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
[2021-08-22 17:30] VITALS: BP 155/95; PULSE 138; RESP 18; TEMP 37.3; O2SAT 98; BMI 31.6
[2021-08-22 17:44] LABS: Amphetamine Screen Urine Not Detected (Not Detect); Barbiturates, Urine Not Detected (Not Detect); Benzodiazepines Screen Urine POSITIVE (Not Detect); Cannabinoid Screen Urine Not Detected (Not Detect); Cocaine Screen Urine POSITIVE (Not Detect); Fentanyl, urine POSITIVE (Not Detect); Opiate Screen Urine POSITIVE (Not Detect); Phencyclidine Screen Urine Not Detected (Not Detect)
[2021-08-22 17:51] LABS: COVID-19 Test Negative (Negative)
[2021-08-22 18:39] LABS: Basophils Absolute Auto 0.1 X10*3/uL (0.0-0.2); Basophils Percent Auto 0.6 % (0-2); Eosinophils Absolute Auto 0.2 X10*3/uL (0.0-0.4); Eosinophils Percent Auto 2.1 % (0-4); Hematocrit 41.2 % (42.0-52.0); Hemoglobin 13.8 g/dl (14.0-18.0); Imm Gran Abs Auto 0.02 X10*3/uL (0.00-0.03); Imm Gran Pct Auto 0.2 % (0.0-0.4); Lymphocytes Absolute Auto 1.6 X10*3/uL (1.2-4.9); Lymphocytes Percent Auto 18.3 % (20-40); MANUAL DIFF FLAG SCAN; Mean Corpuscular HGB Conc 33.5 g/dl (31.0-36.0); Mean Corpuscular Hemoglobin 31.8 pg (27.0-33.0); Mean Corpuscular Volume 94.9 fL (80.0-98.0); Monocytes Absolute Auto 0.6 X10*3/uL (0.1-1.2); Neutrophils Absolute Auto 6.2 x10*3/uL (2.0-8.3); Neutrophils Percent Auto 71.8 % (45-73); PLT CLUMP 1; Red Blood Count 4.34 X10*6/uL (4.60-5.80); Red Cell Distribution Width 12.5 % (11.0-16.0); SCAN SMEAR FLAG 1
[2021-08-22 18:46] LABS: White Blood Count 8.7 X10*3/uL (4.8-10.8)
[2021-08-22 18:50] LABS: Ethanol < 10 mg/dL
[2021-08-22 18:53] LABS: Alanine Aminotransferase 68 U/L (0-40); Albumin Level 4.1 g/dL (3.5-5.0); Alkaline Phosphatase 129 U/L (39-117); Anion Gap 12 (12-20); Aspartate Amino Transferase 55 U/L (5-37); Bilirubin Total 0.8 mg/dL (0.0-1.0); Blood Urea Nitrogen 16 mg/dL (9-16); Calcium 9.1 mg/dL (8.4-10.2); Carbon Dioxide 25 mmol/L (22-29); Chloride 107 mmol/L (96-108); Creatinine Clr Calc Pharmacy 110.6; Estimated Glomerular Filt Rate > 60; Glucose Random 127 mg/dL (60-115); Magnesium 1.9 mg/dL (1.6-2.6); Potassium 4.1 mmol/L (3.3-5.1); Sodium 140 mmol/L (135-145); Total Protein 6.6 g/dL (6.5-8.0)
[2021-08-22 19:03] LABS: Mean Platelet Volume 9.5 fL (9.4-12.4); Platelet Count 201 X10*3/uL (160-400)
[2021-08-22 19:04] LABS: SLIDE REVIEW VERIFIED
[2021-08-22] MEDS: LORazepam 1 MG TABLET PO (19:34)
--- NOTE | 2021-08-23 | ECG_ITS ---
Test Reason : med clearance Blood Pressure : / mmHG Vent. Rate : 061 BPM Atrial Rate : 061 BPM P-R Int : 150 ms QRS Dur : 098 ms QT Int : 430 ms P-R-T Axes : 061 014 039 degrees QTc Int : 432 ms Normal sinus rhythm Normal ECG When compared with ECG of 21-JUL-2021 15:25, No significant change was found Referred By: Magalie Smith Electronically Signed By:Sky Jurado
[2021-08-23] MEDS: LORazepam 1 MG TABLET 2 MG PO (01:14)
[2021-08-23 06:56] VITALS: BP 123/72; PULSE 62; RESP 17; TEMP 36.8; O2SAT 97
--- NOTE | 2021-08-23 07:11 | PC.NURSE ---
Patient slept through the night, no distress observed/reported, disposition per [facility] is section 12 inpatient bed search, med rec completed including methadone dose/verified/faxed to pharmacy, behavior non concerning, VSS, will continue to monitor.
--- NOTE | 2021-08-23 07:36 | PC.NURSE ---
patient appears to remain asleep at present respirations are even and unlabored patient appears in no distress.
[2021-08-23 09:45] VITALS: BP 120/78; PULSE 77; RESP 16; TEMP 36.3; O2SAT 97
[2021-08-23] MEDS: methADONE HCl 20 MG/2 ML ORAL.CONC 120 MG PO (10:40)
[2021-08-23] MEDS: Gabapentin 300 MG CAPSULE 600 MG PO (10:40)
[2021-08-23] MEDS: Omeprazole 20 MG CAPSULE.DR PO (10:40)
[2021-08-23] MEDS: Sertraline HCL 100 MG TABLET PO (10:40)
[2021-08-23] MEDS: cloNIDine HCL 0.1 MG TABLET PO (10:40)
--- NOTE | 2021-08-23 10:46 | P.HPPS_ITS ---
HPI Date of Service: 08/23/21 Chief Complaint: crisis Sources of Information: patient interviewed, chart reviewed and crisis/core team assessment reviewed HPI Subjective Notes: Paulino Warning and Conditional Voluntary Narrative: Patient is a 46-year-old male with history of depression, PTSD and substance abuse who presents to the ED for Adjustment disorder in face of being off his medications for a couple weeks and getting into an argument with his brother and reporting SI. Once on the unit patient was irritable and demanding to be edwards sferred to M3. Patient started pulling papers off the wall, rude to staff, yelling at times and continually demanding to be transferred to the other unit. Patient said he was frustrated that he was not immediately transferred to M3 and signed a 3 day notice wanting discharge. Security was called and patient stopped his acting-out behaviors. Technician Support Engineer met with patient and charge nurse. Patient Became calm and appropriately explained why he wanted to go to M3, saying he does not like this floor (M5) since it reminds him of a time when he was incarcerated. Technician Support Engineer explained that M3 is currently full but offered for patient to remain on this current unit for treatment and help him cope with PTSD symptoms. Patient declined and said he'd signed a 3 day and at this point, he just wants discharge. Pt said he is not suicidal, That he never had any plans or intention of hurting himself but rather wanted admission just so he could get refills on his medication as he has not had access to his medications for 2 weeks. He says he is Im fine, and reiterates that he prefers discharge, is safe and not suicidal; he says altercation with his brother is over and not an issue and he has no HI. Patient remained calm after this interaction and had appropriate behaviors while still on the unit; he expressed gratitude for getting refills on his medication. Technician Support Engineer discussed case with psychiatric attending Dr. Dowd, who recently treated pt on M3 and with M5 staff; all agreed that patient was appropriate for discharge. Patient is not suicidal; he himself reports his motives are for secondary gain and publicity writer agrees he does not need or meet criteria for Inpatient level of care. Patient is not in imminent risk for harm to self or others. Given his acting out behavior, vandalizing the ayala in order to get his way, it is publicity writer's opinion that not only is patient appropriate for discharge but that it's warranted; he is back on home meds and will be getting refills on his medication, which he states was his primary goal. 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 He and his gf were living together x 2 years, however recently broke up and he is now homeless. Also lost his [employer] job x 18 months due to her keeping the truck, he was unable to get to work. -Per chart, pt was born and raised in [place], [place]. His parents reside in [place], has one brother who lives in [place], [place] . -Has a GED. Hx of incarceration [id number] for gun charges and other subsequent incarcerations for various charges. Diagnostics Vital Signs (24Hr): Vital Signs - 24 hr 08/22/21 17:30 08/23/21 06:56 Temperature 99.2 F 98.2 F Pulse Rate 138 H 62 Respiratory Rate 18 17 Blood Pressure 155/95 H 123/72 Pulse Oximetry 98 97 BMI result Body Mass Index 31.6 Labs Results: 08/22/21 18:32 08/22/21 18:32 Labs: Laboratory Results - last 48 hr 08/22/21 08/22/21 08/22/21 17:22 17:22 18:32 WBC 8.7 RBC 4.34 L Hgb 13.8 L Hct 41.2 L MCV 94.9 MCH 31.8 MCHC 33.5 RDW 12.5 Plt Count 201 MPV 9.5 Immature Gran % (Auto) 0.2 Neut % (Auto) 71.8 Lymph % (Auto) 18.3 L Grand % (Auto) 7.0 Eos % (Auto) 2.1 Baso % (Auto) 0.6 Lymph # (Auto) 1.6 Grand # (Auto) 0.6 Eos # (Auto) 0.2 Baso # (Auto) 0.1 Abs Immat Gran (auto) 0.02 Absolute Neuts (auto) 6.2 Absolute Nucleated RBC 0.000 Nucleated RBC % (auto) 0.0 Smear Tech's Comments VERIFIED Sodium Potassium Chloride Carbon Dioxide Anion Gap BUN Creatinine Estim Creat Clear Calc Estimated GFR Random Glucose Calcium Magnesium Total Bilirubin AST ALT Alkaline Phosphatase Total Protein Albumin Urine Opiates Screen POSITIVE H Urine Fentanyl Screen POSITIVE H Ur Barbiturates Screen Not Detected Ur Phencyclidine Scrn Not Detected Ur Amphetamines Screen Not Detected U Benzodiazepines Scrn POSITIVE H Urine Cocaine Screen POSITIVE H U Marijuana (THC) Screen Not Detected Ethyl Alcohol COVID-19 ([facility]) Negative COVID-19 Patterns Com See Note 08/22/21 08/22/21 18:32 18:32 WBC RBC Hgb Hct MCV MCH MCHC RDW Plt Count MPV Immature Gran % (Auto) Neut % (Auto) Lymph % (Auto) Grand % (Auto) Eos % (Auto) Baso % (Auto) Lymph # (Auto) Grand # (Auto) Eos # (Auto) Baso # (Auto) Abs Immat Gran (auto) Absolute Neuts (auto) Absolute Nucleated RBC Nucleated RBC % (auto) Smear Tech's Comments Sodium 140 Potassium 4.1 Chloride 107 Carbon Dioxide 25 Anion Gap 12 BUN 16 Creatinine 1.01 Estim Creat Clear Calc 110.6 Estimated GFR > 60 Random Glucose 127 H Calcium 9.1 Magnesium 1.9 Total Bilirubin 0.8 AST 55 H ALT 68 H Alkaline Phosphatase 129 H Total Protein 6.6 Albumin 4.1 Urine Opiates Screen Urine Fentanyl Screen Ur Barbiturates Screen Ur Phencyclidine Scrn Ur Amphetamines Screen U Benzodiazepines Scrn Urine Cocaine Screen U Marijuana (THC) Screen Ethyl Alcohol < 10 COVID-19 ([facility]) COVID-19 Clin Com Meds/Allergies Allergies Allergies Allergy/AdvReac Type Severity Reaction Status Date / Time shellfish derived Allergy Severe SWELLING, Unverified 01/07/20 18:11 DIFFICULTY BREATHING Penicillins [PENICILLINS] AdvReac Unknown DEATHLY Unverified 01/07/20 18:11 ILL From CLEOCIN Allergy Unknown REDNESS, Uncoded 01/07/20 18:11 BURNING FEELING Mental Status Exam Mental Status Exam Narrative: Pt is alert and oriented; behavior is initially disruptive, rude, confrontational, however he was able to calm down on his own and became cooperative and remained so; dressed in casual attire with unkempt hair but adequate hygiene; mood is described as fine and affect irritable; eye contact appropriate; Speech is normal rate, volume and prosody and not pressured; no psychomotor agitation/retardation present; thought process is organized and goal directed; Thought content is on either being transferred to another unit or getting refills on meds and discharge; also feeling triggered by M5 unit as it reminds him of incarceration; however, otherwise WNL and pertinent to relevant topics and without any delusional content, paranoid ideations or grandiosity; denies any SI/HI. There is no evidence of perceptual disturbance. Patients insight and judgment are impaired but adequate. Assessment & Plan Assessment & Plan (1) Adjustment disorder with mixed anxiety and depressed mood: Status: Acute Code(s): F43.23 - Adjustment disorder with mixed anxiety and depressed mood (2) Post traumatic stress disorder (PTSD): Status: Acute Code(s): F43.10 - Post-traumatic stress disorder, unspecified (3) Opioid use disorder: Status: Acute Code(s): F11.90 - Opioid use, unspecified, uncomplicated (4) MDD (major depressive disorder), recurrent episode, moderate: Status: Acute Code(s): F33.1 - Major depressive disorder, recurrent, moderate Plan Patient is a 46-year-old male with history of depression, PTSD and substance abuse who presents to the ED for Adjustment disorder in face of being off his medications for a couple weeks and getting into an argument with his brother and reporting SI. Once on the unit patient was irritable and demanding to be transferred to M3. Patient started pulling papers off the wall, rude to staff, yelling at times and continually demanding to be transferred to the other unit. Patient said he was frustrated that he was not immediately transferred to M3 and signed a 3 day notice wanting discharge. Security was called and patient sto pped his acting-out behaviors. Technician Support Engineer met with patient and charge nurse. Patient Became calm and appropriately explained why he wanted to go to M3, saying he does not like this floor (M5) since it reminds him of a time when he was incarcerated. Technician Support Engineer explained that M3 is currently full but offered for patient to remain on this current unit for treatment and help him cope with PTSD symptoms. Patient declined and said he'd signed a 3 day and at this point, he just wants discharge. Pt said he is not suicidal, That he never had any plans or intention of hurting himself but rather wanted admission just so he could get refills on his medication as he has not had access to his medications for 2 weeks. He says he is Im fine, and reiterates that he prefers discharge, is safe and not suicidal; he says altercation with his brother is over and not an issue and he has no HI. Patient remained calm after this interaction and had appropriate behaviors while still on the unit; he expressed gratitude for getting refills on his medication. Technician Support Engineer discussed case with psychiatric attending Dr. Dowd, who recently treated pt on M3 and with M5 staff; all agreed that patient was appropriate for discharge. Patient is not suicidal; he himself reports his motives are for secondary gain and publicity writer agrees he does not need or meet criteria for Inpatient level of care. Patient is not in imminent risk for harm to self or others. Given his acting out behavior, vandalizing the ayala in order to get his way, it is publicity writer's opinion that not only is patient appropriate for discharge but that it's warranted; he is back on home meds and will be getting refills on his medication, which he states was his primary goal. Plan: DC Patient educated on: diagnosis, substance abuse and therapeutic strategies Informed Consent: understands Reason for continued inpatient stay Substantial Risk for: stable for discharge
--- NOTE | 2021-08-23 11:18 | PM.PSYDC ---
DS: Providers Provider Date of Service: 08/23/21 Date of admission: 08/23/21 10:21 Date of discharge: 08/23/21 Primary care physician: None Physician Attending physician on admission: Gigi Issa Attending physician on discharge: Gigi Issa DS: Medications Discharge Medications Home Medications: Home Medications Medication Instructions Recorded Confirmed gabapentin 300 mg capsule 600 mg PO TID 08/23/21 08/23/21 methadone 10 mg/mL oral 120 mg PO DAILY 08/23/21 08/23/21 concentrate (Methadose) omeprazole 20 mg capsule,delayed 1 cap PO DAILY 08/23/21 08/23/21 release quetiapine 50 mg tablet 1 tab PO TID PRN 08/23/21 08/23/21 sertraline 100 mg tablet 1 tab PO DAILY 08/23/21 08/23/21 Previous Rx's Medication Instructions Recorded clonidine HCl 0.1 mg tablet 0.1 mg PO TID #90 tab 07/26/21 ibuprofen 400 mg tablet 400 mg PO Q6H PRN 30 Days tab 07/26/21 mirtazapine 30 mg tablet 30 mg PO BEDTIME 30 Days #30 tab 07/26/21 quetiapine 200 mg tablet 200 mg PO BEDTIME #30 tab 07/27/21 Mental Status Exam Mental Status Exam Narrative: Pt is alert and oriented; behavior is initially disruptive, rude, confrontational, however he was able to calm down on his own and became cooperative and remained so; dressed in casual attire with unkempt hair but adequate hygiene; mood is described as fine and affect irritable; eye contact appropriate; Speech is normal rate, volume and prosody and not pressured; no psychomotor agitation/retardation present; thought process is organized and goal directed; Thought content is on either being transferred to another unit or getting refills on meds and discharge; also feeling triggered by M5 unit as it reminds him of incarceration; however, otherwise WNL and pertinent to relevant topics and without any delusional content, paranoid ideations or grandiosity; denies any SI/HI. There is no evidence of perceptual disturbance. Patients insight and judgment are impaired but adequate. Data Data Completed and Pending Completed studies during hospitalization [Text1]: 08/22/21 08/22/21 08/22/21 17:22 17:22 18:32 WBC 8.7 RBC 4.34 L Hgb 13.8 L Hct 41.2 L MCV 94.9 MCH 31.8 MCHC 33.5 RDW 12.5 Plt Count 201 MPV 9.5 Immature Gran % (Auto) 0.2 Neut % (Auto) 71.8 Lymph % (Auto) 18.3 L [place] % (Auto) 7.0 Eos % (Auto) 2.1 Baso % (Auto) 0.6 Lymph # (Auto) 1.6 [place] # (Auto) 0.6 Eos # (Auto) 0.2 Baso # (Auto) 0.1 Abs Immat Gran (auto) 0.02 Absolute Neuts (auto) 6.2 Absolute Nucleated RBC 0.000 Nucleated RBC % (auto) 0.0 Smear Tech's Comments VERIFIED Sodium Potassium Chloride Carbon Dioxide Anion Gap BUN Creatinine Estim Creat Clear Calc Estimated GFR Random Glucose Calcium Magnesium Total Bilirubin AST ALT Alkaline Phosphatase Total Protein Albumin Urine Opiates Screen POSITIVE H Urine Fentanyl Screen POSITIVE H Ur Barbiturates Screen Not Detected Ur Phencyclidine Scrn Not Detected Ur Amphetamines Screen Not Detected U Benzodiazepines Scrn POSITIVE H Urine Cocaine Screen POSITIVE H U Marijuana (THC) Screen Not Detected Ethyl Alcohol COVID-19 ([facility]) Negative COVID-19 Clin Com See Note 08/22/21 08/22/21 18:32 18:32 WBC RBC Hgb Hct MCV MCH MCHC RDW Plt Count MPV Immature Gran % (Auto) Neut % (Auto) Lymph % (Auto) [place] % (Auto) Eos % (Auto) Baso % (Auto) Lymph # (Auto) [place] # (Auto) Eos # (Auto) Baso # (Auto) Abs Immat Gran (auto) Absolute Neuts (auto) Absolute Nucleated RBC Nucleated RBC % (auto) Smear Tech's Comments Sodium 140 Potassium 4.1 Chloride 107 Carbon Dioxide 25 Anion Gap 12 BUN 16 Creatinine 1.01 Estim Creat Clear Calc 110.6 Estimated GFR > 60 Random Glucose 127 H Calcium 9.1 Magnesium 1.9 Total Bilirubin 0.8 AST 55 H ALT 68 H Alkaline Phosphatase 129 H Total Protein 6.6 Albumin 4.1 Urine Opiates Screen Urine Fentanyl Screen Ur Barbiturates Screen Ur Phencyclidine Scrn Ur Amphetamines Screen U Benzodiazepines Scrn Urine Cocaine Screen U Marijuana (THC) Screen Ethyl Alcohol < 10 COVID-19 ([facility]) COVID-19 Clin Com DS: Summary Hospital Course Hospital Course: Patient is a 46-year-old male with history of depression, PTSD and substance abuse who presents to the ED for Adjustment disorder in face of being off his medications for a couple weeks and getting into an argument with his brother and reporting SI.? Once on the unit patient was irritable and demanding to be transferred to M3. Patient started pulling papers off the wall, rude to staff, yelling at times and continually demanding to be transferred to the other unit. Patient said he was frustrated that he was not immediately transferred to M3 and signed a 3 day notice wanting discharge.? Security was called and patient stopped his acting-out behaviors.? Electronic News Gathering Camera Person? met with patient and charge nurse.? Patient Became calm and appropriately explained why he wanted to go to M3, saying he does not like this floor (M5) since it reminds him of a time when he was incarcerated. Electronic News Gathering Camera Person explained that M3 is currently full but offered for patient to remain on this current unit for treatment and help him cope with PTSD symptoms. Patient declined and said he'd signed a 3 day and at this point, he just wants discharge. Pt said he is not suicidal, That he never had any plans or intention of hurting himself but rather wanted admission just so he could get refills on his medication as he has not had access to his medications for 2 weeks.? He says he is Im fine, and reiterates that he prefers discharge, is safe and not suicidal; he says altercation with his brother is over and not an issue and he has no HI.? Patient remained calm after this interaction and had appropriate behaviors while still on the unit; he expressed gratitude for getting refills on his medication. Electronic News Gathering Camera Person discussed case with psychiatric attending Dr. Dowd, who recently treated pt on M3 and with M5 staff; all agreed that patient was appropriate for discharge. Patient is not suicidal; he himself reports his motives are for secondary gain and sba underwriter agrees he does not need or meet criteria for Inpatient level of care. Patient is not in imminent risk for harm to self or others. Given his acting out behavior, vandalizing the ayala in order to get his way, it is sba underwriter's opinion that not only is patient appropriate for discharge but that it's warranted; he is back on home meds and will be getting refills on his medication, which he states was his primary goal. Patient discharged. Time spent discussing smoking cessation with patient: 3 to 10 minutes Status at Discharge Functional status at discharge: independent ambulation Overall status at discharge: patient is progressing back to baseline Time Spent with Patient Time attestation: Total time spent providing and/or coordinating discharge services: Time spent: Greater than 30 minutes Discharge Plan Discharge Patient Disposition: Home, Self-Care Discharge Diagnosis: Adjustment disorder with disturbance of mood and behavior in partial remission Referrals: [facility] [Provider Group] - 1 Week (Patient has a walk-in appointment in one week.) Physician,None [Primary Care Provider] - 1 Week Discharge Medications: Continued ibuprofen 400 mg tablet 400 mg PO Q6H PRN (Reason: aches) 30 Days 0RF methadone [Methadose] 10 mg/mL concentrate 120 mg PO DAILY clonidine HCl 0.1 mg Tablet 0.1 mg PO TID 30 Days Qty: 90 1RF Protocol: Hold for SBP< HOLD for SBP < : 90 quetiapine 200 mg Tablet 200 mg PO BEDTIME 30 Days Qty: 30 1RF mirtazapine 30 mg tablet 30 mg PO BEDTIME 30 Days Qty: 30 1RF Changed sertraline 100 mg tablet 100 mg PO DAILY 30 Days Qty: 30 1RF gabapentin 300 mg capsule 600 mg PO TID 15 Days Qty: 90 4RF omeprazole 20 mg capsule,delayed release(DR/EC) 20 mg PO DAILY 30 Days Qty: 30 1RF quetiapine 50 mg tablet 50 mg PO TID PRN (Reason: anxiety) 30 Days Qty: 90 1RF Discharge Orders: Discharge Order (Routine); Ordered 08/23/21 Ordered By: Gigi Issa Diet: regular diet Activity on Discharge: As tolerated Stand Alone Forms: Patient Portal Discharge page, Community Support Print Language: Maori Care Plan Goals: Maintain mood and safe behaviors Take medications as prescribed Continue to pursue sobriety Practice coping skills Continue with outpatient providers and reach out to them as needed Health Concerns: Mood stability and behaviors Sobriety Plan of Treatment: Follow up with your PCP, psychiatric provider and other outpatient providers regarding above concerns Take medications as prescribed Assessment: Risk assessment at time of discharge:? Patient was interviewed prior to discharge and found to be fully oriented and without any SI or HI. Patient has insight and demonstrates good judgment in terms of wanting to continue with medication. Patient is not in imminent risk of harm to self or others and has a safety plan that includes presenting to the closest ER or calling 911 if feeling unsafe.? Discharge Date/Time: 08/23/21 12:15
--- NOTE | 2021-08-23 11:31 | PC.ADMIT ---
Patient 46 year-old with Hx. of cranial surgery was seen in the ED for depression , SI , and non-adherence to medication yesterday. Patient was evaluated by the care team and was transferred to for further evaluation. Patient arrived to at 9:35 AM via wheelchair with a signed CV. Patient was alert, well oriented , no complaint of chest pain , no SOB, no cough, no nausea, no vomiting , no incontinence of urine. HS,LS,BS not listen to. Patient ambulates independently with steady gait. Patient was admitted to the unit for better evaluation and treatment.
--- NOTE | 2021-08-23 13:25 | PC.NURSE ---
Patient was aware and wanted to be discharge today. Paperwork explained to patient . Walk-in follow up appointment and medications explained to patient . Patient verbalized understanding. Patient was cooperative with the discharge process . Patient presented no SI at the time of discharge and patient was well oriented. Patient with belongings was accompanied to the front of the building per hospital policy.
== END 2021-08-23 12:15 | disposition home or self-care (01) | DRG 754 ==
LOC: HO.ED 08-23 08:52 → HO.PM5 08-23 10:22
PROVIDERS: Nurse Practitioner Family; Physician Assistant; Admitting Provider Psychiatry & Neurology Psychiatry; Emergency Provider Emergency Medicine; Visit Provider Psychiatry & Neurology Psychiatry
DX: F32.A Depression, unspecified (principal); R45.851 Suicidal ideations; F11.20 Opioid dependence, uncomplicated; F19.10 Other psychoactive substance abuse, uncomplicated; F43.10 Post-traumatic stress disorder, unspecified; F41.9 Anxiety disorder, unspecified; Z20.822 Contact with and (suspected) exposure to COVID-19; Z87.891 Personal history of nicotine dependence; Z91.013 Allergy to seafood; Z88.0 Allergy status to penicillin; Z88.8 Allergy status to other drugs, medicaments and biological substances; Z59.02 Unsheltered homelessness; Z79.899 Other long term (current) drug therapy
CPT/HCPCS: 36415; 80053; 80307; 82077; 83735; 85025; 87635; 93005; 99285

== ENCOUNTER 2022-09-15 21:18 | Inpatient (IN) | payer OTHER, SELFPAY ==
[2022-09-15 21:22] VITALS: BP 98/57; PULSE 92; RESP 16; TEMP 37.2; O2SAT 97; BMI 25.1
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
--- OUTSIDE RECORDS SUMMARY | 2022-09-15 21:32 | XMS_ITS | Continuity of Care Document ---
Author Name Unknown Organization [facility] Address [address] [place] [address]- Care Team Providers Care Exerciser Horse Name Role Phone Camilo Shelby MD Primary Care Physician Encounter [facility] [id number] Date(s): 01/11/22 - 02/10/22 [facility] [address] [place] [address]- [place] Allergies, Adverse Reactions, Alerts Substance Reaction Severity Status clindamycin Active penicillin anaphylaxis rash, N&V, swelling throat swelling and penut butteq Active shellfish Active Cleocin T Active Fish Persistent Severe Active Immunizations Given and Recorded Vaccine Date Status Refusal Reason tetanus/diphtheria/pertussis, acel(Tdap) 12/18/21 Given pneumococcal 23-valent vaccine 04/11/10 Given influenza virus vaccine, inactivated 04/11/10 Give n Medications Methadone By Mouth, 0 Refills, Maintenance, 09/22/19 19:57:00 EDT, Partial fill upon patient request Start Date: 09/22/19 Status: Ordered omeprazole 20 mg oral enteric coated capsule 1 capsule, By Mouth, 2 times a day, # 60 capsule, 2 Refills, Maintenance, 11/05/20 14:38:00 EDT, [id number], 186, cm, 10/31/20 12:49:00 EDT, Height, 112.9, kg, 04/24/20 11:17:00 EST, Dry Weight Start Date: 11/05/20 Status: Ordered Problem List Condition Confirmation Course [...] disorder Confirmed Active Migraine headache Confirmed Active Social History Social History Type Response Tobacco Other: Has been smok ing 0.5-1 packs/day since he was 17 years old. Sex Patient Care team information Personnel Name: Camilo Shelby MD Address: Address: [address] [place] [address]
--- OUTSIDE RECORDS SUMMARY | 2022-09-15 21:32 | XMS_ITS | Continuity of Care Document ---
Author Name Unknown Organization [facility] Address [address] [place] [address]- Care Team Providers Care Etl Informatica Architect Name Role Phone Not on Staff, PCP Primary Care Physician Unavail able Encounter [facility] Date(s): 04/25/20 - 04/25/[address] [address]- Encounter Diagnosis Eruption, drug(Final) - 04/25/20 Discharge Disposition: A-D/C AMA Attending Physician: Teri Lee MD Admitting Physician: Teri Lee MD Referring Physician: Not on Staff, Referring MD Allergies, Adverse Reactions, Alerts Substance Reaction Severity Status clindamycin Active penicillin anaphylaxis rash, N&V, swelling throat swelling and penut butteq Active shellfish Active Cleocin T Active Fish Persistent Severe Active Immunizations Given and Recorded Vaccine Date Status Refusal Reason pneumococcal 23-valent vaccine 04/11/10 Given influenza virus vaccine, inactivated 04/11/10 Give n Medications betamethasone topical dipropionate 0.05% cream 1 application, Topically, 2 times a day, # 15 Gm, 0 Refills, Maintenance, 09/12/18 4:16:50 EDT, Cream Start Date: 09/12/18 Status: Ordered cloNIDine 0.1 mg oral tablet 0.1 mg, 1, tablet, By Mouth, 2 times a day, Please contact your regular ongoing health provider forfuture refills., # 60 tablet, Refills 0, Tot. Refills 0, Maintenance, 10/23/19 15:28:00 EDT, Route to Pharmacy Electronically, [facility]/pharmacy #[id number], 631,... Start Date: 10/23/19 Status: Ordered hydrOXYzine hydrochloride 25 mg oral tablet See Instructions, Please contact your regular ongoing health provider for future refills., # 120 tablet, 0 Refills, Maintenance, 10/23/19 15:28:00 EDT, [facility]/pharmacy #[id number], 188, cm, 09/22/19 20:09:00 EDT, Height, 89, kg, 09/22/19 20:09:00 EDT, Dry Weight Start Date: 10/23/19 Status: Ordered ibuprofen 600 mg oral tablet 600 mg, 1, tablet, By Mouth, 4 times a day, PRN, # 40 tablet, Refills 0, Maintenance, for pain, 09/12/18 4:16:15 EDT Start Date: 09/12/18 Status: Ordered Methadone By Mouth, 0 Refills, Maintenance, 09/22/19 19:57:00 EDT, Partial fill upon patient request Start Date: 09/22/19 Status: Ordered Methadone Liquid 115 mg, Solution, By Mouth, Once, STAT, 04/25/20 8:13:00 EST, Stop date 04/25/20 8:13:00 EST Start Date: 04/25/20 Stop Date: 04/25/20 Status: Completed prazosin 2 mg oral capsule 1 capsule = 2 mg, By Mouth, Daily at bedtime, Please contact your regular ongoing health provider for future refills., # 30 capsule, 0 Refills, Maintenance, 10/23/19 15:28:00 EDT, [facility]/pharmacy #[id number],188, cm, 09/22/19 20:09:00 EDT, Height, 89, kg, 06/... Start Date: 10/23/19 Status: Ordered Prilosec OTC = 20 mg, By Mouth, Daily, 0 Refills, Maintenance, 04/10/10 5:06:17 EST Start Date: 04/10/10 Status: Ordered venlafaxine 75 mg oral capsule, extended release 75 mg, 1, capsule, By Mouth, Daily, Please contact your regular ongoing health provider for future refills., # 30 capsule, Refills 0, Tot. Refills 0, Maintenance, 10/23/19 15:28:00 EDT, Route to Pharmacy Electronically, [facility]/pharmacy #[id number], 188, cm, 06... Start Date: 10/23/19 Status: Ordered Problem List Condition Effective Dates [...] TBI w/seizure disorder(Confirmed) Active Migraine headache(Confirmed) Active Vital Signs Most recent to oldest [Reference Range]: 1 2 3 Oxygen Saturation [94-100 %] 99 % (04/25/20 12:15 PM) 98 % (04/25/20 10:52 AM) 100 % (04/25/20 8:08 AM) Pulse Rate [55-90 bpm] 86 bpm (04/25/20 12:15 PM) 91 bpm *H* (04/25/20 10:52 AM) 84 bpm (04/25/20 8:08 AM) Blood Pressure [90-138/55-84 mm Hg] 145/64mm Hg *H* (04/25/20 12:15 PM) 114/61mm Hg (04/25/20 10:52 AM) 141/110mm Hg *H* (04/25/20 8:08 AM) Respiratory Rate [16-30 br/min] 16 br/min (04/25/20 12:15 PM) 20 br/min (04/25/20 10:52 AM) 24 br/min (04/25/20 8:31 AM) Temperature [96.8-100.4 DegF] 98.2 DegF (04/25/20 12:15 PM) 99.9 DegF (04/25/20 8:08 AM) Mode of Delivery (Oxygen) Room air (04/25/20 12:15 PM) Room air (04/25/20 8:08 AM) Temperature Route Oral (04/25/20 12:15 PM) Oral (04/25/20 8:08 AM) Social History Social History Type Response Tobacco Other: Has been smok ing 0.5-1 packs/day since he was 17 years old. Sex
--- OUTSIDE RECORDS SUMMARY | 2022-09-15 21:32 | XMS_ITS | Continuity of Care Document ---
Author Name Unknown Organization [facility] Address [address] [place] [address]- Care Team Providers Care Director Sales And Trade Marketing Name Role Phone Camilo Shelby MD Primary Care Physician Encounter [facility] Date(s): 06/19/22 - 07/19/22 [facility] [address] [place] [address]- Allergies, Adverse Reactions, Alerts Substance Reaction Severity Status clindamycin Active Cleocin T Active Fish Persistent Severe Active penicillin anaphylaxis rash, N&V, swelling throat swelling and penut butteq Active shellfish Active Immunizations Given and Recorded Vaccine Date [...] 06/20/22 14:42:00 EST, Route to Pharmacy Electronically, [facility]/pharmacy #[id number], Partial fill upon patie... Start Date: 06/20/22 Stop Date: 08/04/22 Status: Ordered ibuprofen 800 mg oral tablet TAKE 1 TABLET BY MOUTH EVERY 8 HRS FOR 5 DAYS Start Date: 03/30/22 Status: Ordered Methadone By Mouth, 0 Refills, Maintenance, 09/22/19 19:57:00 EDT, Partial fill upon patient request Start Date: 09/22/19 Status: Ordered mirtazapine 30 mg oral tablet 1 tablet [...] capsule, 2 Refills, Maintenance, 06/20/22 14:42:00 EST, [facility]/pharmacy #[id number], 182, cm, 06/01/22 15:20:00 EST, Height, [...] years old. Sex Patient Care team information Care Team Personnel Name: Camilo Shelby MD Position: [facility] Primary Care Physician Member Role: PCP Address: Address: [address] [place] [address]- Name: Robyn Correa RN Position: S RN Member Role: Primary Care Nurse Name: June Quinteros RN Position: S RN Member Role: Primary Care Nurse Address: Address: [address] [place] [address]- Name: Joe Alonzo RN Position: [facility] RN Supv Member Role: Primary Care Nurse Name: Melvina Perdomo RN Position: [facility] RN Supv Member Role: Primary Care Nurse Care Team Related Persons Name: PRANAVNAVEEN Name: NONE, GIVEN Address: home [address] [place] [address] [address] [place] [address] Name: KEERTHI MADDEN Address: home [address] [place] [address] Name: KENNY MADDEN Address: home [address] [place] [address] Name: PT STATES, NONE
--- OUTSIDE RECORDS SUMMARY | 2022-09-15 21:32 | XMS_ITS | Continuity of Care Document ---
Author Name Unknown Organization [facility] Address [address] [place] [address]- Care Team Providers Care Campus Administrative Assistant Name Role Phone Camilo Shelby MD Primary Care Physician [id number] Date(s): [facility]06[facility]20 [facility] [address] [place] [address]- Attending Physician: Camilo Shelby MD Allergies, Adverse Reactions, Alerts Substance Reaction [...] 06/15/20 13:35:00 EST, Route to Pharmacy Electronically, [facility]/pharmacy #[id number], 186,... Start Date: 06/15/20 Status: Ordered hydrOXYzine hydrochloride 25 mg oral tablet 1 tablet = 25 mg, By Mouth, 2 times a day, # 60 tablet, 5 Refills, Maintenance, 06/15/20 13:43:00 EST, [facility]/pharmacy #[id number], 186, cm, 06/15/20 13:02:00 EST, Height, 112.9, [...] Refills, Maintenance, 11/05/20 14:38:00 EDT, [id number], 186, cm, 10/31/20 12:49:00 EDT, Height, 112.9, kg, 04/24/20 11:17:00 EST, Dry Weight Start Date: 11/05/20 Status: Ordered prazosin 2 mg oral capsule 1 capsule = 2 mg, By Mouth, Daily at bedtime, Please contact your regular ongoing health provider for future refills., # 30 capsule, 0 Refills, Maintenance, 10/23/19 15:28:00 EDT, [facility]/pharmacy #[id number],188, cm, 09/22/19 20:09:00 EDT, Height, 89, kg, 06/... Start Date: 10/23/19 Status: Ordered venlafaxine 75 mg oral capsule, extended release 75 mg, 1, capsule, By Mouth, Daily, Please contact your regular ongoing health provider for future refills., # 30 capsule, Refills 5, Tot. Refills 5, Maintenance, 06/15/20 13:35:00 EST, Route to Pharmacy Electronically, [facility]/pharmacy #[id number], 186, cm, 02... Start Date: 06/15/20 Status: Ordered Zofran 4 mg oral tablet 1 tablet = 4 mg, By Mouth, Every 8 hours, # 12 tablet, 0 Refills, Maintenance, 06/15/20 13:42:00 EST, Tablet, [facility]/pharmacy #[id number], Partial fill upon patient request if [...]
--- OUTSIDE RECORDS SUMMARY | 2022-09-15 21:32 | XMS_ITS | Continuity of Care Document ---
Author Name Unknown Organization [facility] Address [address] [place] [address]- Care Team Providers Care Services Tech Name Role Phone Dawson DUDLEY, Rafael Sarmiento Primary Care Physician Encounter [facility] Date(s): 09/22/19 - 09/22/[address] [address]- [facility] Encounter Diagnosis Fever(Final) - 09/22/19 Fever(Final) - 09/22/19 Discharge Disposition: A-D/C Home Attending Physician: Keny Mejia DO Admitting Physician: Keny Mejia DO Referring Physician: Not on Staff, Referring MD [...] tablet, By Mouth, 2 times a day, # 60 tablet, Refills 1, Tot. Refills 1, Maintenance, 07/31/19 18:42:00 EDT, Route to Pharmacy Electronically, [facility]/pharmacy #[id number], 178, cm, 03/18/19 11:33:00 EST, Height, 89, kg, 10/27/18 6:36:00 EDT, Dry Weight Start Date: 07/31/19 Status: Ordered hydrOXYzine hydrochloride 25 mg oral tablet See Instructions, 1 tablet By Mouth in AM, 3 tablets at bedtime, # 120 tablet, 1 Refills, Maintenance, 07/31/19 18:42:00 EDT, [facility]/pharmacy #[id number], 178, cm, 03/18/19 11:33:00 EST, Height, 89, kg, 10/27/18 6:36:00 EDT, Dry Weight Start Date: 07/31/19 Status: Ordered ibuprofen 600 mg oral tablet 600 mg, 1, tablet, By Mouth, 4 times a day, PRN, # 40 tablet, Refills 0, Maintenance, for pain, 09/12/18 4:16:15 EDT Start Date: 09/12/18 Status: Ordered Methadone By Mouth, 0 Refills, Maintenance, 09/22/19 19:57:00 EDT, Partial fill upon patient request Start Date: 09/22/19 Status: Ordered prazosin 2 mg oral capsule 1 capsule = 2 mg, By Mouth, Daily at bedtime, # 30 capsule, 1 Refills, Maintenance, 07/31/19 18:41:00 EDT, [facility]/pharmacy #[id number], 178, cm, 03/18/19 11:33:00 EST, Height, 89, kg, 10/27/18 6:36:00 EDT, Dry Weight Start Date: 07/31/19 Status: Ordered Prilosec OTC = 20 mg, By Mouth, Daily, 0 Refills, Maintenance, 04/10/10 5:06:17 EST Start Date: 04/10/10 Status: Ordered venlafaxine 75 mg oral capsule, extended release 75 mg, 1, capsule, By Mouth, Daily, # 30 capsule, Refills 1, Tot. Refills 1, Maintenance, 07/31/19 18:40:00 EDT, Route to Pharmacy Electronically, [facility]/pharmacy #[id number], 178, cm, 03/18/19 11:33:00 EST, Height, 89, kg, 10/27/18 6:36:00 EDT, Dry Weight Start Date: 07/31/19 Status: Ordered Problem List Condition Effective Dates [...] TBI w/seizure disorder(Confirmed) Active Migraine headache(Confirmed) Active Results Radiology Reports * Exam Date Time Procedure Performing Provider Status 09/22/19 7:58 PM Chest Portable GreggElham che; Auth (Verified) Notes: (Chest Portable) Reason For Exam: Cough RESULT: Chest Portable AP portable chest, INDICATION: Reason: Cough; Clinical Question(s): Pneumonia COMPARISON: 10/26/2018 FINDINGS: LINES AND TUBES: None LUNGS AND PLEURA AND MEDIASTINUM: There is no pneumothorax. Clear lungs without focal infiltrate. Normal size heart. IMPRESSION: Normal study. WSN: [id number] Ordering Physician: Keny Mejia Dictated By: Zabrina Foster MD Dictated Date/Time: 09/22/19 7:59 pm Reviewed By: Zabrina Foster MD Signed By: Zabrina Foster MD Signed Date/Time: 09/22/19 7:59 pm Transcribed By: DEB Transcribed Date/Time: 09/22/19 7:59 pm Vital Signs Most recent to oldest [Reference Range]: 1 2 Height 188 cm (09/22/19 8:09 PM) 188 cm (09/22/19 7:21 PM) Weight 89 kg (09/22/19 8:09 PM) Oxygen Saturation [94-100 %] 100 % (09/22/19 7:21 PM) Pulse Rate [55-90 bpm] 95 bpm *H* (09/22/19 7:21 PM) Blood Pressure [90-138/55-84 mm Hg] 141/ 79mm Hg *H* (09/22/19 7:21 PM) Respiratory Rate [16-30 br/min] 18 br/mi n (09/22/19 7:21 PM) Temperature [96.8-100.4 DegF] 99.9 DegF (09/22/19 7:21 PM) Mode of Delivery (Oxygen) Room air (09/22/19 7:21 PM) Blood pressure sites Arm, left (09/22/19 7:21 PM) Temperature Route Temporal (09/22/19 7:21 PM) Dry Weight 89 kg (09/22/19 8:09 PM) Weight Obtained Via Standing scale (09/22/19 7:21 PM) Dry Weight Obtained Via Standing scale (09/22/19 7:21 PM) Social History Social History Type Response Tobacco Other: Has been smok ing 0.5-1 packs/day since he was 17 years old. Sex
--- OUTSIDE RECORDS SUMMARY | 2022-09-15 21:32 | XMS_ITS | Continuity of Care Document ---
Author Name Unknown Organization [facility] Address [address] [place] [address]- Care Team Providers Care Author Agent Name Role Phone Camilo Shelby MD Primary Care Physician Encounter [facility] Date(s): 10/31/20 - [facility] [address] [place] [address]- Attending Physician: Kate Boone Admitting Physician: Kate Boone Referring Physician: AdmtrKate Allergies, Adverse Reactions, Alerts Substance Reaction Severity [...] 06/15/20 13:35:00 EST, Route to Pharmacy Electronically, [facility]/pharmacy #[id number], 186,... Start Date: 06/15/20 Status: Ordered hydrOXYzine hydrochloride 25 mg oral tablet 1 tablet = 25 mg, By Mouth, 2 times a day, # 60 tablet, 5 Refills, Maintenance, 06/15/20 13:43:00 EST, [facility]/pharmacy #[id number], 186, cm, 06/15/20 13:02:00 EST, Height, 112.9, [...] Refills, Maintenance, 11/05/20 14:38:00 EDT, [id number], 186, cm, 10/31/20 12:49:00 EDT, Height, 112.9, kg, 04/24/20 11:17:00 EST, Dry Weight Start Date: 11/05/20 Status: Ordered prazosin 2 mg oral capsule 1 capsule = 2 mg, By Mouth, Daily at bedtime, Please contact your regular ongoing health provider for future refills., # 30 capsule, 0 Refills, Maintenance, 10/23/19 15:28:00 EDT, [facility]/pharmacy #[id number],188, cm, 09/22/19 20:09:00 EDT, Height, 89, kg, 06/... Start Date: 10/23/19 Status: Ordered venlafaxine 75 mg oral capsule, extended release 75 mg, 1, capsule, By Mouth, Daily, Please contact your regular ongoing health provider for future refills., # 30 capsule, Refills 5, Tot. Refills 5, Maintenance, 06/15/20 13:35:00 EST, Route to Pharmacy Electronically, [facility]/pharmacy #[id number], 186, cm, 02... Start Date: 06/15/20 Status: Ordered Zofran 4 mg oral tablet 1 tablet = 4 mg, By Mouth, Every 8 hours, # 12 tablet, 0 Refills, Maintenance, 06/15/20 13:42:00 EST, Tablet, [facility]/pharmacy #[id number], Partial fill upon patient request [...]
--- OUTSIDE RECORDS SUMMARY | 2022-09-15 21:32 | XMS_ITS | Continuity of Care Document ---
Author Name Unknown Organization [facility] Address [address] [place] [address]- Care Team Providers Care Cook Boat Name Role Phone Camilo Shelby MD Primary Care Physician Encounter [facility] Date(s): 06/30/22 - 06/30/[address] [address]- Discharge Disposition: A-D/C Home Attending Physician: See Aguilar MD Admitting Physician: See Aguilar MD Referring Physician: Not on Staff, Referring MD Allergies, Adverse Reactions, Alerts Substance Reaction Severity Status clindamycin Active Fish Persistent Severe Active penicillin anaphylaxis rash, N&V, swelling throat swelling and penut butteq Active shellfish Active Cleocin T Active Immunizations Given and Recorded Vaccine Date [...] 06/20/22 14:42:00 EST, Route to Pharmacy Electronically, [facility]/pharmacy #[id number], Partial fill upon patie... Start Date: 06/20/22 Stop Date: 08/04/22 Status: Ordered ibuprofen 800 mg oral tablet TAKE 1 TABLET BY MOUTH EVERY 8 HRS FOR 5 DAYS Start Date: 03/30/22 Status: Ordered Methadone By Mouth, 0 Refills, Maintenance, 09/22/19 19:57:00 EDT, Partial fill upon patient request Start Date: 09/22/19 Status: Ordered Methadone Liquid 120 mg, Solution, By Mouth, Once, Routine, 06/30/22 17:00:00 EST, Stop date 06/30/22 17:00:00 EST Start Date: 06/30/22 Stop Date: 06/30/22 Status: Completed mirtazapine 30 mg oral tablet [...] capsule, 2 Refills, Maintenance, 06/20/22 14:42:00 EST, [facility]/pharmacy #[id number], 182, cm, 06/01/22 15:20:00 EST, [...] to oldest [Reference Range]: 1 2 Height 183 cm (06/30/22 2:11 PM) Weight 85.3 kg (06/30/22 2:11 PM) Oxygen Saturation [94-100 %] 98 % (06/30/22 2:11 PM) Pulse Rate [55-90 bpm] 62 bpm (06/30/22 2:11 PM) Blood Pressure [90-138/55-84 mm Hg] 115/ 62mm Hg (06/30/22 2:11 PM) Respiratory Rate [16-30 br/min] 16 br/mi n (06/30/22 4:06 PM) 18 br/min (06/30/22 2:11 PM) Temperature [96.8-100.4 DegF] 97.8 DegF (06/30/22 2:11 PM) Mode of Delivery (Oxygen) Room air (06/30/22 2:11 PM) Temperature Route Temporal (06/30/22 2:11 PM) Dry Weight 85.3 kg (06/30/22 2:11 PM) Social History Social History Type Response Tobacco Other: Has been smok ing 0.5-1 packs/day since he was 17 years old. Sex Patient Care team information Care Team Personnel Name: Camilo Shelby MD Position: [facility] Primary Care Physician Member Role: PCP Address: Address: [address] [place] [id number]- Name: Robyn Correa RN Position: [facility] RN Member Role: Primary Care Nurse Name: June Quinteros RN Position: [facility] RN Member Role: Primary Care Nurse Address: Address: [address] [place] [id number] Name: Joe Alonzo RN Position: [facility] RN Supv Member Role: Primary Care Nurse Name: Melvina Perdomo RN Position: [facility] RN Supv Member Role: Primary Care Nurse Name: See Aguilar MD Position: [facility] ED Medicine MD Member Role: Admitting Physician Address: Address: [address] [place] [address] [place] [address]- Name: Mercedes Alvarado Position: [facility] ED [facility] Name: Naheed Position: [facility] ED [facility] Member Role: Second Helper Name: Monica Ibarra RN Position: [facility] ED RN W/OE and Tasks Member Role: Patient Care Provider Care Team Related Persons Name: NAVEEN ROCK Name: NONE, GIVEN Address: home [address] [place] [address] [address] [place] [address] Name: KEERTHI MADDEN Address: home [address] [place] [address] Name: KENNY MADDEN Address: home [address] [place] [address] Name: STATES, NONE
--- OUTSIDE RECORDS SUMMARY | 2022-09-15 21:32 | XMS_ITS | Continuity of Care Document ---
Author Name Unknown Organization [facility] Address [address] [place] [address]- Care Team Providers Care Software Performance Engineer Name Role Phone Camilo Shelby MD Primary Care Physician Encounter [facility] Date(s): 08/18/20 - 09/28/[address] [address]- Attending Physician: Josue Alonso MD Allergies, Adverse Reactions, Alerts Substance Reaction [...] 06/15/20 13:35:00 EST, Route to Pharmacy Electronically, [facility]/pharmacy #[id number], 186,... Start Date: 06/15/20 Status: Ordered hydrOXYzine hydrochloride 25 mg oral tablet 1 tablet = 25 mg, By Mouth, 2 times a day, # 60 tablet, 5 Refills, Maintenance, 06/15/20 13:43:00 EST, [facility]/pharmacy #[id number], 186, cm, 06/15/20 13:02:00 EST, Height, 112.9, [...] 20 mg oral enteric coated capsule 1 capsule = 20 mg, By Mouth, 2 times a day, # 60 capsule, 4 Refills, Maintenance, 06/15/20 15:40:00EST, [facility]/pharmacy #[id number], Partial fill upon patient request if the prescription is for a schedule IIopioid drug., 186, cm, 06/15/20 13:02:00 EST, Heigh... Start Date: 06/15/20 Status: Ordered prazosin 2 mg oral capsule 1 capsule = 2 mg, By Mouth, Daily at bedtime, Please contact your regular ongoing health provider for future refills., # 30 capsule, 0 Refills, Maintenance, 10/23/19 15:28:00 EDT, [facility]/pharmacy #[id number],188, cm, 09/22/19 20:09:00 EDT, Height, 89, [...] 06/15/20 13:35:00 EST, Route to Pharmacy Electronically, [facility]/pharmacy #[id number], 186, cm, 02... Start Date: 06/15/20 Status: Ordered Zofran 4 mg oral tablet 1 tablet = 4 mg, By Mouth, Every 8 hours, # 12 tablet, 0 Refills, Maintenance, 06/15/20 13:42:00 EST, Tablet, [facility]/pharmacy #[id number], Partial fill upon patient request if [...]
--- OUTSIDE RECORDS SUMMARY | 2022-09-15 21:32 | XMS_ITS | Continuity of Care Document ---
Author Name Unknown Organization [facility] Address [address] [place] [address]- Care Team Providers Care General Cargo Clerk Name Role Phone Not on Staff, PCP Primary Care Physician Unavail able Encounter [facility] [id number] Date(s): 06/15/20 - 07/15/20 [facility] [address] [place] [address]- Attending Physician: Kate Boone Admitting Physician: AdmKate mahoney Referring Physician: AdmtrKate Allergies, Adverse Reactions, Alerts [...] 06/15/20 13:35:00 EST, Route to Pharmacy Electronically, [facility]/pharmacy #[id number], 891,... Start Date: 06/15/20 Status: Ordered hydrOXYzine hydrochloride 25 mg oral tablet 1 tablet = 25 mg, By Mouth, 2 times a day, # 60 tablet, 5 Refills, Maintenance, 06/15/20 13:43:00 EST, [facility]/pharmacy #[id number], 186, cm, 06/15/20 13:02:00 EST, Height, 112.9, [...] 60 capsule, 4 Refills, Maintenance, 06/15/20 15:40:00EST, [facility]/pharmacy #[id number], Partial fill upon patient request if the prescription is for a schedule IIopioid drug., 186, cm, 06/15/20 13:02:00 EST, Heigh... Start Date: 06/15/20 Status: Ordered prazosin 2 mg oral capsule 1 capsule = 2 mg, By Mouth, Daily at bedtime, Please contact your regular ongoing health provider for future refills., # 30 capsule, 0 Refills, Maintenance, 10/23/19 15:28:00 EDT, [facility]/pharmacy #[id number],188, cm, 09/22/19 20:09:00 EDT, Height, 89, kg, ... Start Date: 10/23/19 Status: Ordered Prilosec OTC [...] 06/15/20 13:35:00 EST, Route to Pharmacy Electronically, [facility]/pharmacy #[id number], 186, cm, 02... Start Date: 06/15/20 Status: Ordered Zofran 4 mg oral tablet 1 tablet = 4 mg, By Mouth, Every 8 hours, # 12 tablet, 0 Refills, Maintenance, 06/15/20 13:42:00 EST, Tablet, [facility]/pharmacy #[id number], Partial fill upon patient request if the [...]
--- OUTSIDE RECORDS SUMMARY | 2022-09-15 21:32 | XMS_ITS | Continuity of Care Document ---
Author Name Unknown Organization [facility] Address [address] [place] [address]- Care Team Providers Care Youth Teacher Name Role Phone Not on Staff, PCP Primary Care Physician Unavail able Encounter [facility] Date(s): 10/22/19 - 11/21/19 [facility]/[address] [address]- [facility] Allergies, Adverse Reactions, Alerts Substance Reaction Severity [...] 10/23/19 15:28:00 EDT, Route to Pharmacy Electronically, [facility]/pharmacy #[id number], 188,... Start Date: 10/23/19 Status: Ordered hydrOXYzine hydrochloride 25 mg oral tablet See Instructions, Please contact your regular ongoing health provider for future refills., # 120 tablet, 0 Refills, Maintenance, 10/23/19 15:28:00 EDT, [facility]/pharmacy #0974, 188, cm, 09/22/19 20:09:00 EDT, Height, 89, [...] capsule, 0 Refills, Maintenance, 10/23/19 15:28:00 EDT, [facility]/pharmacy #[id number],188, cm, 09/22/19 20:09:00 EDT, Height, 89, [...] 10/23/19 15:28:00 EDT, Route to Pharmacy Electronically, [facility]/pharmacy #[id number], 188, cm, 06... Start Date: 10/23/19 [...]
--- OUTSIDE RECORDS SUMMARY | 2022-09-15 21:32 | XMS_ITS | Continuity of Care Document ---
Author Name Unknown Organization [facility] Address [address] [place] [address]- Care Team Providers Care Assembler Equipment Name Role Phone Camilo Shelby MD Primary Care Physician Encounter [facility] Date(s): 08/31/20 - 10/26/[address] [address]- Attending Physician: Josue Alonso MD Allergies, Adverse [...] 06/15/20 13:35:00 EST, Route to Pharmacy Electronically, [facility]/pharmacy #[id number], 186,... Start Date: 06/15/20 Status: Ordered hydrOXYzine hydrochloride 25 mg oral tablet 1 tablet = 25 mg, By Mouth, 2 times a day, # 60 tablet, 5 Refills, Maintenance, 06/15/20 13:43:00 EST, [facility]/pharmacy #[id number], 186, cm, 06/15/20 13:02:00 EST, Height, 112.9, [...] 60 capsule, 4 Refills, Maintenance, 06/15/20 15:40:00EST, [facility]/pharmacy #[id number], Partial fill upon patient request if the prescription is for a schedule IIopioid drug., 186, cm, 06/15/20 13:02:00 EST, Heigh... Start Date: 06/15/20 Status: Ordered prazosin 2 mg oral capsule 1 capsule = 2 mg, By Mouth, Daily at bedtime, Please contact your regular ongoing health provider for future refills., # 30 capsule, 0 Refills, Maintenance, 10/23/19 15:28:00 EDT, [facility]/pharmacy #[id number],188, cm, 09/22/19 20:09:00 EDT, Height, [...] 06/15/20 13:35:00 EST, Route to Pharmacy Electronically, [facility]/pharmacy #[id number], 186, cm, 02... Start Date: 06/15/20 Status: Ordered Zofran 4 mg oral tablet 1 tablet = 4 mg, By Mouth, Every 8 hours, # 12 tablet, 0 Refills, Maintenance, 06/15/20 13:42:00 EST, Tablet, [facility]/pharmacy #[id number], Partial fill upon patient request [...]
--- OUTSIDE RECORDS SUMMARY | 2022-09-15 21:32 | XMS_ITS | Continuity of Care Document ---
Author Name Unknown Organization [facility] Address [address] [place] [address]- Care Team Providers Care Magnetic Tape Typewriter Operator Name Role Phone Not on Staff, PCP Primary Care Physician Unavail able Encounter [facility] Date(s): 04/24/20 - 04/24/[address] [address]- Discharge Disposition: A-D/C AMA Attending Physician: Jose Ivy MD Admitting Physician: Jose Ivy MD Referring Physician: Not on Staff, Referring [...] 10/23/19 15:28:00 EDT, Route to Pharmacy Electronically, [facility]/pharmacy #[id number], 188,... Start Date: 10/23/19 Status: Ordered hydrOXYzine hydrochloride 25 mg oral tablet See Instructions, Please contact your regular ongoing health provider for future refills., # 120 tablet, 0 Refills, Maintenance, 10/23/19 15:28:00 EDT, [facility]/pharmacy #[id number], 188, cm, 09/22/19 20:09:00 EDT, Height, [...] capsule, 0 Refills, Maintenance, 10/23/19 15:28:00 EDT, [facility]/pharmacy #[id number],188, cm, 09/22/19 20:09:00 EDT, Height, [...] 10/23/19 15:28:00 EDT, Route to Pharmacy Electronically, [facility]/pharmacy #[id number], 188, cm, 06... Start Date: 10/23/19 [...] to oldest [Reference Range]: 1 2 Height 186 cm (04/24/20 11:17 AM) 186 cm (04/24/20 10:55 AM) Weight 112.9 kg (04/24/20 11:17 AM) 112.9 kg (04/24/20 10:55 AM) Oxygen Saturation [94-100 %] 100 % (04/24/20 10:55 AM) Pulse Rate [55-90 bpm] 84 bpm (04/24/20 10:55 AM) Respiratory Rate [16-30 br/min] 21 br/mi n (04/24/20 10:55 AM) Mode of Delivery (Oxygen) Room air (04/24/20 10:55 AM) Dry Weight 112.9 kg (04/24/20 11:17 AM) 112.9 kg (04/24/20 10:55 AM) Social History Social History Type Response Tobacco Other: Has been smok ing 0.5-1 packs/day since he was 17 years old. Sex
--- OUTSIDE RECORDS SUMMARY | 2022-09-15 21:32 | XMS_ITS | Continuity of Care Document ---
Author Name Unknown Organization [facility] ter Address [address] [place] [id number]- Care Team Providers Care Dry Wall Plasterer Name Role Phone Not on Staff, PCP Primary Care Physician Unavail able [place] [facility] [place] 12/18/[address] [address]- Discharge Disposition: A-D/C AMA Attending Physician: Junior Muniz MD Admitting Physician: Junior Muniz MD Referring Physician: Not on Staff, Referring [...] 06/15/20 13:35:00 EST, Route to Pharmacy Electronically, [facility]/pharmacy #[id number], 186,... Start Date: 06/15/20 Status: Ordered hydrOXYzine hydrochloride 25 mg oral tablet 1 tablet, By Mouth, 2 times a day, # 60 tablet, 5 Refills, [facility] STORE [id number], 182, cm, 11/19/20 14:41:00 EDT, Height, 104, kg, 11/19/20 14:41:00 EDT, Dry Weight Start Date: 01/11/21 Status: Ordered ibuprofen 600 mg oral tablet 600 mg, 1, tablet, By Mouth, 4 times a day, PRN, # 40 tablet, Refills 0, Maintenance, for pain, 09/12/18 4:16:15 EDT Start Date: 09/12/18 Status: Ordered Methadone By Mouth, 0 Refills, Maintenance, 09/22/19 19:57:00 EDT, Partial fill upon patient request Start Date: 09/22/19 Status: Ordered MorPHINE Inj 2 mg, Injection, IV Push Slowly, Once, STAT, 12/18/21 19:06:00 EDT, Stop date 12/18/21 19:06:00 EDT Start Date: 12/18/21 Stop Date: 12/18/21 Status: Completed omeprazole 20 mg oral enteric coated capsule 1 capsule, By Mouth, 2 times a day, # 60 capsule, 2 Refills, Maintenance, 11/05/20 14:38:00 EDT, [id number], 186, cm, 10/31/20 12:49:00 EDT, Height, 112.9, kg, 04/24/20 11:17:00 EST, Dry Weight Start Date: 11/05/20 Status: Ordered prazosin 2 mg oral capsule 1 capsule = 2 mg, By Mouth, Daily at bedtime, Please contact your regular ongoing health provider for future refills., # 30 capsule, 0 Refills, Maintenance, 10/23/19 15:28:00 EDT, [facility]/pharmacy #[id number],188, cm, 09/22/19 20:09:00 EDT, Height, 89, kg, 06/... Start Date: 10/23/19 Status: Ordered venlafaxine 75 mg oral capsule, extended release 1 capsule, By Mouth, Daily, # 30 capsule, 5 Refills, [facility], 182, cm, 11/19/20 14:41:00 EDT, Height, 104, kg, 11/19/20 14:41:00 EDT, Dry Weight Start Date: 01/11/21 Status: Ordered Zofran 4 mg oral tablet 1 tablet = 4 mg, By Mouth, Every 8 hours, # 12 tablet, 0 Refills, Maintenance, 06/15/20 13:42:00 EST, Tablet, [facility]/pharmacy #[id number], Partial fill upon patient request if [...] Exam Date Time Procedure Performing Provider Status 12/18/21 6:53 PM Knee 1 or 2 Views Right Ramses Lezama es; Auth (Verified) Notes: (Knee 1 or 2 Views Right) Reason For Exam: with Pain;Trauma RESULT: Knee 1 or 2 Views Right Knee 1 or 2 Views Right, 2 views Hx of Present Illness: Pt is coming from work, pt was kneeling down on some carpeted nails last week and now having increased pain and swelling to right knee; Reason: Trauma; with Pain; Clinical Question(s): Fracture; Special Instructions: This is a protocol film and radiologist should call any findings to the Charge Nurse COMPARISON: None. FINDINGS: There is no evidence of acute or healing fracture, dislocation or bone lesion. No arthritic changes. No osteochondral defects or intra-articular loose bodies. No evidence of joint effusion. Moderate superficial soft tissue edema anteriorly. IMPRESSION: No acute osseous abnormality, moderate prepatellar soft tissue edema age and etiology indeterminate. WSN: [id number] Ordering Physician: Maico Armenta Dictated By: Perry Cody MD Dictated Date/Time: 12/18/21 7:01 pm Reviewed By: Perry Cody MD Signed By: Perry Cody MD Signed Date/Time: 12/18/21 7:01 pm Transcribed By: DEB Transcribed Date/Time: 12/18/21 7:00 pm Vital Signs Most recent to oldest [Reference Range]: 1 2 3 Oxygen Saturation [94-100 %] 100 % (12/18/21 10:19 PM) 98 % (12/18/21 7:26 PM) 99 % (12/18/21 4:48 PM) Pulse Rate [55-90 bpm] 64 bpm (12/18/21 10:19 PM) 66 bpm (12/18/21 7:36 PM) 54 bpm *L* (12/18/21 7:26 PM) Blood Pressure [90-138/55-84 mm Hg] 111/64mm Hg (12/18/21 10:19 PM) 115/87mm Hg (12/18/21 7:36 PM) 87/59mm Hg *L* (12/18/21 7:26 PM) Respiratory Rate [16-30 br/min] 18 br/min (12/18/21 7:12 PM) 16 br/min (12/18/21 4:48 PM) Temperature [96.8-100.4 DegF] 98.0 DegF (12/18/21 10:19 PM) 98.8 DegF (12/18/21 7:26 PM) 98.7 DegF (12/18/21 4:48 PM) Mode of Delivery (Oxygen) Room air (12/18/21 7:26 PM) Room air (12/18/21 4:48 PM) Blood pressure sites Arm, left (12/18/21 10:19 PM) Arm, right (12/18/21 7:36 PM) Arm, right (12/18/21 7:26 PM) Temperature Route Oral (12/18/21 10:19 PM) Oral (12/18/21 7:26 PM) Oral (12/18/21 4:48 PM) Social History Social History Type Response Tobacco Other: Has been smok ing 0.5-1 packs/day since he was 17 years old. Sex XR Knee - right 1 or 2 Views * [facility] , CIS S: TRANSCRIBE Perry Cody MD: VERIFY Event Display: Result: Authored Date: Knee 1 or 2 Views Right, 2 views Hx of Present Illness: Pt is coming from work, pt was kneeling down on some carpeted nails last week and now having increased pain and swelling to right knee; Reason: Trauma; with Pain; Clinical Question(s): Fracture; Special Instructions: This is a protocol film and radiologist should call any findings to the Charge Nurse COMPARISON: None. FINDINGS: There is no evidence of acute or healing fracture, dislocation or bone lesion. No arthritic changes. No osteochondral defects or intra-articular loose bodies. No evidence of joint effusion. Moderate superficial soft tissue edema anteriorly. IMPRESSION: No acute osseous abnormality, moderate prepatellar soft tissue edema age and etiology indeterminate. WSN: [id number] Ordering Physician: Maico Armenta Dictated By: Perry Cody MD Dictated Date/Time: 12/18/21 7:01 pm Reviewed By: Perry Cody MD Signed By: Perry Cody MD Signed Date/Time: 12/18/21 7:01 pm Transcribed By: DEB Transcribed Date/Time: 12/18/21 7:00 pm Care Team Personnel Name: Not on Staff, PCP
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
--- OUTSIDE RECORDS SUMMARY | 2022-09-15 21:32 | XMS_ITS | Continuity of Care Document ---
Author Name Unknown Organization [facility] Address [address] [place] [address]- Care Team Providers Care Record Clerk Name Role Phone Not on Staff, PCP Primary Care Physician Unavail able Encounter [facility] [id number] Date(s): 04/23/20 - 04/23/[address] [address]- Discharge Disposition: A-D/C Walkout Attending Physician: Not on Staff, Attending MD Admitting Physician: Not on Staff, Admitting MD Referring Physician: Not on Staff, Referring [...] 10/23/19 15:28:00 EDT, Route to Pharmacy Electronically, [facility]/pharmacy #[id number], 188,... Start Date: 10/23/19 Status: Ordered hydrOXYzine hydrochloride 25 mg oral tablet See Instructions, Please contact your regular ongoing health provider for future refills., # 120 tablet, 0 Refills, Maintenance, 10/23/19 15:28:00 EDT, [facility]/pharmacy #[id number], 188, cm, 09/22/19 20:09:00 EDT, Height, 89, [...] capsule, 0 Refills, Maintenance, 10/23/19 15:28:00 EDT, [facility]/pharmacy #[id number],188, cm, 09/22/19 20:09:00 EDT, Height, 89, [...] 10/23/19 15:28:00 EDT, Route to Pharmacy Electronically, [facility]/pharmacy #[id number], 188, cm, 06... Start Date: 10/23/19 [...]
--- OUTSIDE RECORDS SUMMARY | 2022-09-15 21:32 | XMS_ITS | Continuity of Care Document ---
Author Name Unknown Organization [facility] Address [address] [place] [address]- Care Team Providers Care Manager Group Name Role Phone Camilo Shelby MD Primary Care Physician Encounter [facility] Date(s): 09/08/20 - 10/08/20 [facility] [address] [place] [address]- Allergies, Adverse Reactions, Alerts Substance Reaction Severity [...] 06/15/20 13:35:00 EST, Route to Pharmacy Electronically, [facility]/pharmacy #[id number], 186,... Start Date: 06/15/20 Status: Ordered hydrOXYzine hydrochloride 25 mg oral tablet 1 tablet = 25 mg, By Mouth, 2 times a day, # 60 tablet, 5 Refills, Maintenance, 06/15/20 13:43:00 EST, [facility]/pharmacy #[id number], 186, cm, 06/15/20 13:02:00 EST, Height, 112.9, kg, 01/03/21 11:17:00 EST, Dry Weight Start Date: 06/15/20 [...] 60 capsule, 4 Refills, Maintenance, 06/15/20 15:40:00EST, [facility]/pharmacy #[id number], Partial fill upon patient request if the prescription is for a schedule IIopioid drug., 186, cm, 06/15/20 13:02:00 EST, Heigh... Start Date: 06/15/20 Status: Ordered prazosin 2 mg oral capsule 1 capsule = 2 mg, By Mouth, Daily at bedtime, Please contact your regular ongoing health provider for future refills., # 30 capsule, 0 Refills, Maintenance, 10/23/19 15:28:00 EDT, [facility]/pharmacy #[id number],188, cm, 09/22/19 20:09:00 EDT, Height, [...] 06/15/20 13:35:00 EST, Route to Pharmacy Electronically, [facility]/pharmacy #[id number], 186, cm, 02... Start Date: 06/15/20 Status: Ordered Zofran 4 mg oral tablet 1 tablet = 4 mg, By Mouth, Every 8 hours, # 12 tablet, 0 Refills, Maintenance, 06/15/20 13:42:00 EST, Tablet, [facility]/pharmacy #[id number], Partial fill upon patient request [...]
--- OUTSIDE RECORDS SUMMARY | 2022-09-15 21:32 | XMS_ITS | Continuity of Care Document ---
Author Name Unknown Organization [facility] [place] Address [address] [place] [address]- Care Team Providers Care Ec Teacher Name Role Phone Dawson DUDLEY, Rafael Sarmiento Primary Care Physician [phone] Encounter [facility] Date(s): 05/01/19 - 05/11/19 [facility] [place] [address] [place] [address]- [facility] Attending Physician: Kate Boone Admitting Physician: AdmtrKate Referring Physician: AdmtrKate Allergies, Adverse Reactions, Alerts [...]
--- OUTSIDE RECORDS SUMMARY | 2022-09-15 21:32 | XMS_ITS | Continuity of Care Document ---
Author Name Unknown Organization [facility] ter Address [address] [place] [address]- Care Team Providers Care Special Needs Tutor Name Role Phone Not on Staff, PCP Primary Care Physician Unavail able [place] [facility] [place](s[place] 10/04/21 - 10/04/[address] [address]- Discharge Disposition: A-D/C Walkout Attending Physician: Not [...] virus vaccine, inactivated 04/11/10 Give n Medications Bactrim DS 800 mg-160 mg oral tablet 1 tablet, By Mouth, 2 times a day, for 7 days, Stop taking your doxycycline and start taking this.,# 14 tablet, 0 Refills, Acute 10/08/21 22:47:00 EDT, 10/01/21 22:47:00 EDT, Tablet, [facility]/pharmacy #[id number], Partial fill upon patient request if the prescr... Start Date: 10/01/21 Stop Date: 10/08/21 Status: Ordered cloNIDine 0.1 mg oral tablet 0.1 mg, 1, tablet, By Mouth, 2 times a day, Please contact your regular ongoing health provider forfuture refills., # 60 tablet, Refills 5, Tot. Refills 5, Maintenance, 06/15/20 13:35:00 EST, Route to Pharmacy Electronically, [facility]/pharmacy #[id number], 186,... Start Date: 06/15/20 Status: Ordered hydrOXYzine hydrochloride 25 mg oral tablet 1 tablet, By Mouth, 2 times a day, # 60 tablet, 5 Refills, [facility], 182, cm, 11/19/20 14:41:00 EDT, Height, 104, [...] capsule, 2 Refills, Maintenance, 11/05/20 14:38:00 EDT, [facility], 186, cm, 10/31/20 12:49:00 EDT, Height, 112.9, kg, 04/24/20 11:17:00 EST, Dry Weight Start Date: 11/05/20 Status: Ordered prazosin 2 mg oral capsule 1 capsule = 2 mg, By Mouth, Daily at bedtime, Please contact your regular ongoing health provider for future refills., # 30 capsule, 0 Refills, Maintenance, 10/23/19 15:28:00 EDT, [facility]/pharmacy #[id number],188, cm, 09/22/19 20:09:00 EDT, Height, 89, kg, 06/... Start Date: 10/23/19 Status: Ordered venlafaxine 75 mg oral capsule, extended release 1 capsule, By Mouth, Daily, # 30 capsule, 5 Refills, [facility] 65246, 182, cm, 11/19/20 14:41:00 EDT, Height, 104, kg, 11/19/20 14:41:00 EDT, Dry Weight Start Date: 01/11/21 Status: Ordered Zofran 4 mg oral tablet 1 tablet = 4 mg, By Mouth, Every 8 hours, # 12 tablet, 0 Refills, Maintenance, 06/15/20 13:42:00 EST, Tablet, [id number], Partial fill upon patient request if the [...] to oldest [Reference Range]: 1 2 Height 187 cm (10/04/21 5:44 PM) Weight 99.7 kg (10/04/21 5:44 PM) Oxygen Saturation [94-100 %] 100 % (10/04/21 5:44 PM) 100 % (10/04/21 5:18 PM) Pulse Rate [55-90 bpm] 64 bpm (10/04/21 5:44 PM) 76 bpm (10/04/21 5:18 PM) Body Mass Index [18.5-24.99] 28.51 *H* (10/04/21 5:44 PM) Blood Pressure [90-138/55-84 mm Hg] 140/ 80mm Hg *H* (10/04/21 5:44 PM) Respiratory Rate [16-30 br/min] 18 br/mi n (10/04/21 5:44 PM) Temperature [96.8-100.4 DegF] 98.5 DegF (10/04/21 5:44 PM) Mode of Delivery (Oxygen) Room air (10/04/21 5:44 PM) Blood pressure sites Arm, left (10/04/21 5:44 PM) Temperature Route Oral (10/04/21 5:44 PM) Weight Obtained Via Patient/family state d (10/04/21 5:44 PM) Social History Social History Type Response Tobacco Other: Has been smok ing 0.5-1 packs/day since he was 17 years old. Sex
--- OUTSIDE RECORDS SUMMARY | 2022-09-15 21:33 | XMS_ITS | Continuity of Care Document ---
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 ??03/30/2022 16:21 ? TOXICOLOGY/TDM ??Acetaminophen Level ??<5 mg/L (Low) ??03/30/2022 16:21 ??Ethanol, Serum or Plasma ??NONE DETECTED mg/dL () ??03/30/2022 16:21 ??Salicylate Level ??<0.3 mg/dL (Low) ??03/30/2022 16:21 ? Note: Critical results are displayed in red. ? EKG study * Event Display: ECG 12-Lead Authored Date: Please click on pdf link to open report * Event Display: ECG 12-Lead Authored Date: Ventricular Rate: 81 BPM Atrial Rate: 81 BPM P-R Interval: 146 ms QRS Duration: 92 ms Q-T Interval: 422 ms QTC Calculation(Bazett): 490 ms P [place]: 68 degrees R [place]: 19 degrees T [place]: 57 degrees Sinus rhythm with marked sinus arrhythmia Prolonged QT Baseline artifact Abnormal ECG When compared with ECG of 30-MAR-2022 15:47, QT interval has lengthened Baseline artifact is now Present Confirmed by YG HAWKINS [facility] ([id number]) on 03/31/2022 12:37:27 PM Reva[facility] * Andra Deluna RN: PERFORM, SIGN, VERIFY, SIGN, MODIFY Event Display: Progress Note Hospital Authored Date: [id number] Patient: ESPERANZA MADDEN Age: 46 years Sex: Male : 1975 Associated Diagnoses: None Author: Andra Deluna RN Findings Evaluation Assumed care of patient at start of shift. Patient was alert and oriented. Patient was heard calling people to get a ride home. Providers made aware of this. Patient stated that he wanted to leave. Providers in to see patient and patient signed AMA paperwork.. * Andra Deluna RN: PERFORM Event Display: Progress Note Hospital Authored Date: Patient left the unit at approximately 2004. Patient walked out by himself. * Sarah Fontaine RN: PERFORM, MODIFY, SIGN, VERIFY Event Display: Progress Note Hospital Authored Date: [id number] Patient: ESPERANZA MADDEN Age: 46 years Sex: Male : 1975 Associated Diagnoses: None Author: Sarah Fontaine RN Findings Problem Related to Alteration in Comfort : Alteration in Comfort/new 03/31/2022 18:00 EST Alteration in Comfort Related to Disease process Goals & Outcomes: Comfort Pt will report acceptable level of comfort & pain control, Pt will state importance of adhering to pain strategy regime, Pt will demonstrate necessary skills to manage pain, Non-verbal indicators will indicate comfort/pain control Interventions Implemented: Comfort Assess pain using appropriate pain scale/tools, Assess aggravating factors & prevent them accordingly, Assess alleviating factors & promote them accordingly BH Goals/Interventions, Comfort Yes Comfort, Problem Start 03/31/2022 18:00 Reviewed plan with, Comfort Patient Patient Progression, Comfort Pt progressing according to plan Comfort, Problem Ongoing Yes . Alteration in Respiratory Function (new) : Alteration in Respiratory Function/new 03/31/2022 18:00 EST Alteration in Resp Status Related to Intubation/Ventilation/Failure to Wean Goals & Outcomes, Respiratory Pt will maintain/resume baseline physical assessment, Pt will notdevelop complications r/t mechanical ventilation, Pt will maintain adequate nutritional intake, Pt will maintain/resume normal fluid/electrolyte balance, Pt will not develop complications r/t immobility, Pt will demonstrate proper technique w/self care procedures Interventions, Respiratory Resolved problem, Interventions no longer in effect Goals/Interventions, Respiratory Yes Respiratory, Problem Start 03/31/2022 8:00 Reviewed Plan with, Respiratory Patient Patient Progression, Respiratory Resolved problem Respiratory, Problem Resolved 03/31/2022 18:30 . Alteration in Safety : Alteration in Safety/new 03/31/2022 18:00 EST Alteration in Safety Related to Toxic Ingestion Goals & Outcomes, Safety Psychosocial support will be provided to Pt/S.O. as needed, Pt/caregiver will state understanding of plan/goals of care, Pt will remain safe & injury free, Pt/caregiver will be offered appropriate resources & support, Pt/caregiver will verbalize understanding ofthe D/C plan, Pt airway will be patent while recovering from ingestion Interventions, Safety Provide info on community resources for education, support, Provide teaching as needed, Assess family dynamics & refer to counseling as needed, Initiate antidote protocol per Poison Control guidelines, Keep equipment for maintaining patent airway at bedside Goals/Interventions, Safety Yes Safety, Problem Start 03/31/2022 18:00 Reviewed plan with, Safety Patient Patient Progression, Safety Pt progressing according to plan . Nursing Data Respiratory/Pulmonary Data. : Respiratory/Pulmonary Data. 03/31/2022 8:00 EST FiO2 25 % Mode of Delivery (Oxygen) Ventilator PEEP 5 Respiratory effort Unlabored Chest expansion Symmetrical Tracheal Position Midline Accessory Muscles use No Endotracheal Tube Activity Position confirmation, Reposition lateral oral position ETT size 8.0 Endotracheal Tube Type Single lumen Endotracheal Tube Placement Oral Ventilator Mode AC, Volume control Ventilator Set Rate 20 br/min End Tidal CO2 32 mm Hg Respiratory pattern Regular All Lobes Breath Sounds Clear Position at Teeth 26 cm . Evaluation P: problem r/t comfort I: see CIS E: patient intubated at start of shift, sedated with precedex, fentanyl, propofol, and ketamine IV drips with PRN versed for intermittent agitation. P: problem r/t resp I: see CIS E: patient intubated at start of shift on volume A/C, LS CTA with minimal secretions. Weaned to PSV5/5/25 tolerating well with volumes 600s and RR teens, no s/s resp distress. Patient extubated to 2L nasal cannula after EGD with no issue, RR normal with LS CTA throughout, able cough up small amounts sputum independently. Patient tolerating room air later in shift. P: problem r/t safety I: see CIS E: patient admitted with question of toxic ingestion, GI consulted and patient remained intubated for EGD. Patient tolerated EGD well w/no significant findings and cleared for extubation. C/o throat soreness post-extubation and chloroseptic spray administered. Patient hemodynamically stable. Poisoncontrol consulted on admission and followed up on lab results and patient condition. Social work contacted today, girlfriend at bedside claiming to be HCP but does not have paperwork, all information and consents obtained from father. Patient mental status waxing/waning after extubation. Manzanares catheter removed at 1700. Patient downgraded to acute bed, awaiting placement. Able to stand and pivot to commode with 1-assist for bowel movement. Seroquel, methadone, and gabapentin reordered and administered PO after extubation, passed swallow eval and regular diet ordered. See CIS forfull assessment. . * Emy Guevara MD, Esthela E: MODIFY Marge HAWKINS, Yoon: PERFORM Event Display: Progress Note Hospital Authored Date: Patient: ??MARYANNE, CHRISTOPHER ? Age:??46 Years?Sex:??Male?:??1975?? Subjective Patient not arousable to voice or light touch. Per nursing, requiring significant sedation due to agitation otherwise. Per nursing, GI plans for EGD around noon today. Review of Systems Could not obtain due to intubated/sedated Objective Vital Signs?? Temperature: 99.3 DegF (03/31/22 12:00:00) Temperature Route: Core Bladder (03/31/22 12:00:00) Normothermic Measures: Samantha donovaner (03/30/22 20:00:00) Pulse Rate: 78 bpm (03/30/22 17:53:00) Heart Rate Monitored: 71 bpm (03/31/22 12:00:00) Respiratory Rate: 21 br/min (03/31/22 12:00:00) Vented: Yes (03/31/22 12:00:00) Systolic Blood Pressure: 108 mm Hg (03/31/22 12:00:00) Diastolic Blood Pressure:??86 mm Hg??High (03/31/22 12:00:00) Blood pressure sites: Arm, left (03/31/22 12:00:00) Mean Arterial Pressure: 76 mm Hg (03/30/22 23:00:00) Pulse Pressure: 22 mm Hg (03/31/22 12:00:00) Oxygen Saturation: 99 % (03/31/22 12:00:00) Mode of Delivery (Oxygen): Ventilator (03/31/22 12:00:00) FiO2: 25 % (03/31/22 12:00:00) Early Warning Score: 4 (03/30/22 18:05:20) SOFA Calculated: -1 (03/31/22 10:22:42) ? Ventilator Settings?? FiO2: 25 % (12:00) ? Intake/Output? 03/30 19:30 03/31 07:00 03/30 07:00 03/29 07:00 03/28 07:00 ?? 03/31 12:59 03/31 12:59 03/31 06:59 03/30 06:59 03/29 06:59 Intake ? 3369.6 ?926.2 ? 2443.5 ?0 ?0 Output ? 3620 ? 1370 ? 2250 ?0 ?0 Net Total ? -250.4 ? -443.8 ?193.5 ?0 ?0 ? Physical Exam Vital Signs (24 hrs) Last Charted?? Minimum?? Maximum?? Temp?? I have read the above and understand it.?? 03/30/2022 20:27?? I have read the above and understand it.?? 03/30/2022 17:43 ?? I have read the above and understand it.?? 03/30/2022 17:43?? Heart Rate Monitored?? 71?? 03/31/2022 12:00?? 61?? 03/30/2022 20:00 ?? 71?? 03/31/2022 01:00?? Resp Rate?? 21?? 03/31/2022 12:00?? L??13?? 03/31/2022 10:00 ?? H??34?? 03/30/2022 19:42?? SBP?? 108?? 03/31/2022 12:00?? 92?? 03/31/2022 09:00 ?? H??154?? 03/30/2022 16:59?? DBP?? H??86?? 03/31/2022 12:00?? 62?? 03/30/2022 23:00 ?? H??109?? 03/30/2022 16:59? General Appearance: The patient is a male and in NAD. Cardiovascular: RRR S1 and S2 heard with no M/R/G. Respiratory: ??Breath sounds clear to auscultation bilaterally. GI: Soft. Nontender and nondistended. Normal bowel sounds present throughout abdomen. ??No rebound tenderness or other findings suggestive of an acute abdomen.?? MS: ??No edema or erythema in the lower extremities. No wounds seen on the feet. Peripheral sensation intact. No spinal or paraspinal tenderness. ??No CVA tenderness. Skin:??No rashes seen on chest, abdomen, or back. ? Neuro:?? Could not assess speech due to intubated/sedated. No response to light touch or voice on my assessment. However per nursing prior to sedation,??had agitation,purposeless movement of all extremities. Psych: Could not obtain due to intubated/sedated. ?? _ Home Medications Gabapentin (gabapentin 300 mg oral capsule)?TAKE 2 CAPSULES BY MOUTH 3 TIMES A DAY FOR 15 DAYS Ibuprofen (ibuprofen 800 mg oral tablet)?TAKE 1 TABLET BY MOUTH EVERY 8 HRS FOR 5 DAYS Methadone?By Mouth Mirtazapine (mirtazapine 30 mg oral tablet)?1?tab(s)?30?Milligram?By Mouth?Daily at bedtime Omeprazole (omeprazole 20 mg oral enteric coated capsule)?1?capsule?By Mouth?2 times a day Quetiapine (QUEtiapine 50 mg oral tablet)?1?tab(s)?50?Milligram?By Mouth?Daily Sertraline (sertraline 100 mg oral tablet)?1?tab(s)?100?Milligram?By Mouth?Daily ? Inpatient Medications Medications (11) Active SCHEDULED: (2) Chlorhexidine 0.12% Oral Rinse UD (Peridex 0.12% Liquid) ??15 mL, Topically, 2 times a day Pantoprazole 40 mg Inj (Pantoprazole Inj) ??40 mg, IV Push Slowly, 2 times a day CONTINUOUS: (5) Dexmedetomidine 400 mcg / 100 mL NaCl 400 mcg (Precedex 400 mcg / 100 mL NaCl (Titrate) 400 mcg) ??400 mcg 100 mL, IV Infusion Fentanyl 1000mcg/100mL NaCL 1,000 mcg (FENTanyl 1000mcg / 100mL NaCl 1,000 mcg) ??1,000 mcg 100 mL,IV Infusion Ketamine 1000 mg in 100 mL Cont IV 1,000 mg + NaCL 0.9% (100 mL) Cont IV 100 mL (Ketamine Cont IV 1,000 mg + NaCL 0.9% for Titration 100 mL) ??100 mL, IV Infusion NaCL 0.9% 1000 mL w/KCL 40 mEq 1,000 mL (0.9% NaCL 1000mL w/KCL 40mEq 1,000 mL) ??1,000 mL, IV Infusion, 250 mL/hr Propofol 10mg/mL Cont IV (100mL) 1,000 mg (Propofol 1% /100 mL 1,000 mg) ??1,000 mg 100 mL, IV Infusion PRN: (4) Bisacodyl 10 mg Suppository (Bisacodyl Supp) ??10 mg 1 supp, Rectally, 2 times a day Docusate Sodium 10 mg/mL Liquid UD (Colace Liquid) ??100 mg 10 mL, By Mouth, 2 times a day Magnesium Hydroxide 8% Susp UD (Milk of Magnesia Liquid) ??30 mL, By Mouth, 2 times a day Midazolam 2 mg Inj (Versed Inj) ??2 mg 2 mL, IV Push, Every 2 hours ? Results Recent Labs BLOOD BANK Blood Type O Positive ()?? 03/30/2022 16:10 Antibody Screen Negative ()?? 03/30/2022 16:10 ?? BLOOD COUNT & DIFF WBC 5.2 k/mm3 ()?? 03/31/2022 03:51 RBC 3.89 m/mm3 (Low)?? 03/31/2022 03:51 Hgb 12.2 Gm/dL (Low)?? 03/31/2022 03:51 Hct 37.9 % (Low)?? 03/31/2022 03:51 MCV 97.4 femtoliters (High)?? 03/31/2022 03:51 MCH 31.4 pg ()?? 03/31/2022 03:51 MCHC 32.2 g/dL (Low)?? 03/31/2022 03:51 Platelet Count 168 k/mm3 ()?? 03/31/2022 03:51 RDW-SD 43.9 femtoliters ()?? 03/31/2022 03:51 MPV 9.6 femtoliters ()?? 03/31/2022 03:51 Nucleated RBC (Automated) 0.0 #/100 WBC'S ()?? 03/31/2022 03:51 Abs. NRBC 0.0 k/mm3 ()?? 03/31/2022 03:51 Abs. Neut 5.8 k/mm3 ()?? 03/30/2022 20:02 Abs. Lymph 1.4 k/mm3 ()?? 03/30/2022 20:02 Abs. Wheeler 0.5 k/mm3 ()?? 03/30/2022 20:02 Abs. Eo 0.0 k/mm3 ()?? 03/30/2022 20:02 Abs. Baso 0.0 k/mm3 ()?? 03/30/2022 20:02 Neut % 74.6 % ()?? 03/30/2022 20:02 Lymph % 18.2 % ()?? 03/30/2022 20:02 Wheeler % 6.0 % ()?? 03/30/2022 20:02 Eos % 0.3 % ()?? 03/30/2022 20:02 Baso % 0.4 % ()?? 03/30/2022 20:02 Hemoglobin (POC) POC Cartridge 16.7 Gm/dL ()?? 03/30/2022 16:22 Hematocrit (POC) POC Cartridge 49 % ()?? 03/30/2022 16:22 Imm Gran 0.5 % ()?? 03/30/2022 20:02 Abs. Imm Gran 0.0 k/mm3 ()?? 03/30/2022 20:02 ?? CARDIAC CK, Total 407 units/L (High)?? 03/30/2022 16:21 Nt-Probnp 66 pg/mL ()?? 03/30/2022 16:21 High Sensitivity Troponin (HSTnT) 7 ng/L ()?? 03/30/2022 16:10 ?? CHEM GENERAL Sodium 144 mmol/L ()?? 03/31/2022 03:51 Potassium 5.0 mmol/L ()?? 03/31/2022 03:51 Chloride 111 mmol/L (High)?? 03/31/2022 03:51 Bicarbonate Level 21 mmol/L (Low)?? 03/31/2022 03:51 Anion Gap 12 ()?? 03/31/2022 03:51 Sodium (POC) POC Cartridge 141 mmol/L ()?? 03/30/2022 16:22 Potassium (POC) POC Cartridge 3.0 mmol/L (Low)?? 03/30/2022 16:22 Chloride (POC) POC Cartridge 101 mmol/L ()?? 03/30/2022 16:22 Glucose Level 96 mg/dL ()?? 03/31/2022 03:51 Glucose (POC) POC Cartridge 103 (High)?? 03/30/2022 16:22 Glucose, POC 96 mg/dL ()?? 03/30/2022 20:17 BUN 9 mg/dL ()?? 03/31/2022 03:51 BUN (POC) POC Cartridge 14 mg/dL ()?? 03/30/2022 16:22 Creatinine-Blood 0.8 mg/dL ()?? 03/31/2022 03:51 Creatinine (POC) POC Cartridge 0.9 mg/dL ()?? 03/30/2022 16:22 Estimated GFR Creatinine 111 ML/MIN/1.73 M2 ()?? 03/31/2022 03:51 Osmolality 289 mOs/kg ()?? 03/30/2022 16:21 Calcium 8.1 mg/dL (Low)?? 03/31/2022 03:51 Calcium, Ionized pH Corrected 1.23 mmol/L ()?? 03/30/2022 16:21 Ionized Calcium (POC) POC Cartridge 1.08 mmol/L (Low)?? 03/30/2022 16:22 Magnesium 1.9 mg/dL ()?? 03/31/2022 03:51 Protein, Total 5.2 Gm/dL (Low)?? 03/31/2022 03:51 Albumin 3.6 Gm/dL ()?? 03/31/2022 03:51 AG Ratio 2.3 ()?? 03/30/2022 16:21 Alkaline Phosphatase 92 units/L ()?? 03/31/2022 03:51 Lipase 33 units/L ()?? 03/30/2022 16:21 AST (SGOT) 40 units/L ()?? 03/31/2022 03:51 ALT (SGPT) 35 units/L ()?? 03/31/2022 03:51 Bilirubin, Total 0.4 mg/dL ()?? 03/31/2022 03:51 Bilirubin, Direct <0.2 mg/dL ()?? 03/31/2022 03:51 Bilirubin, Indirect Direct bilirubin is less than the measureable limit. Therefore, indirect mg/dL ()?? 03/31/2022 03:51 Lactate 0.8 mmol/L ()?? 03/30/2022 20:02 ?? COAG INR 1.1 ()?? 03/30/2022 16:21 Protime (PT) 11.6 seconds (High)?? 03/30/2022 16:21 APTT 26.8 seconds ()?? 03/30/2022 16:21 ?? MISC. CHEMISTRY Ammonia, Venous 23 ??mole/L ()?? 03/30/2022 16:21 Hold Red Top SPECIMEN DISCARDED AFTER 1 WEEK ()?? 03/30/2022 20:02 ?? TOXICOLOGY/TDM Ethanol, Serum or Plasma NONE DETECTED mg/dL ()?? 03/30/2022 16:21 Ethylene Glycol Level NONE DETECTED ()?? 03/30/2022 20:02 Salicylate Level <0.3 mg/dL (Low)?? 03/30/2022 16:21 Barbiturate Screen, Urine NONE DETECTED ()?? 03/30/2022 20:16 Cannabinoid Screen, Urine POSITIVE (Abnormal)?? 03/30/2022 20:16 Cocaine Metabolite Screen, Urine POSITIVE (Abnormal)?? 03/30/2022 20:16 Benzodiazepine Screen, Urine POSITIVE (Abnormal)?? 03/30/2022 20:16 Amphetamine Screen, Urine NONE DETECTED ()?? 03/30/2022 20:16 Opiate Screen, Urine NONE DETECTED ()?? 03/30/2022 20:16 Acetaminophen Level <5 mg/L (Low)?? 03/30/2022 16:21 ?? UA/URINALYSIS Appear/Color, Urine COLORLESS ()?? 03/30/2022 20:16 Specific [place], Urine 1.020 ()?? 03/30/2022 20:16 pH, Urine 5.5 ()?? 03/30/2022 20:16 Albumin, Urine NEGATIVE ()?? 03/30/2022 20:16 Glucose, Urine NEGATIVE ()?? 03/30/2022 20:16 Ketones, Urine NEGATIVE ()?? 03/30/2022 20:16 Bilirubin, Urine NEGATIVE ()?? 03/30/2022 20:16 Hemoglobin, Urine NEGATIVE ()?? 03/30/2022 20:16 Nitrite, Urine NEGATIVE ()?? 03/30/2022 20:16 Leukocyte, Urine NEGATIVE ()?? 03/30/2022 20:16 Urobilinogen NORMAL mg/dL ()?? 03/30/2022 20:16 WBC's, Urine 1 /HPF ()?? 03/30/2022 20:16 RBC's, Urine 1 /HPF ()?? 03/30/2022 20:16 Hold Urine Culture Testing available 48 hours from time of collection. ()?? 03/30/2022 20:16 ?? URINE OTHER Osmolality, Urine Random 167 mOsm/kg ()?? 03/30/2022 20:16 ? Abnormal Labs ?? BLOOD BANK ??Antibody Screen ??Negative () ??03/30/2022 16:10 ??Blood Type ??O Positive () ??03/30/2022 16:10 ? BLOOD COUNT & DIFF ??Abs. Imm Gran ??0.0 k/mm3 () ??03/30/2022 20:02 ??Abs. NRBC ??0.0 k/mm3 () ??03/31/2022 03:51 ??Hct ??37.9 % (Low) ??03/31/2022 03:51 ??Hgb ??12.2 Gm/dL (Low) ??03/31/2022 03:51 ??Imm Gran ??0.5 % () ??03/30/2022 20:02 ??MCHC ??32.2 g/dL (Low) ??03/31/2022 03:51 ??MCV ??97.4 femtoliters (High) ??03/31/2022 03:51 ??Nucleated RBC (Automated) ??0.0 #/100 WBC'S () ??03/31/2022 03:51 ??RBC ??3.89 m/mm3 (Low) ??03/31/2022 03:51 ??RDW-SD ??43.9 femtoliters () ??03/31/2022 03:51 ? CARDIAC ??CK, Total ??407 units/L (High) ??03/30/2022 16:21 ??High Sensitivity Troponin (HSTnT) ??7 ng/L () ??03/30/2022 16:10 ? CHEM GENERAL ??AG Ratio ??2.3 () ??03/30/2022 16:21 ??Bicarbonate Level ??21 mmol/L (Low) ??03/31/2022 03:51 ??Calcium ??8.1 mg/dL (Low) ??03/31/2022 03:51 ??Chloride ??111 mmol/L (High) ??03/31/2022 03:51 ??Estimated GFR Creatinine ??111 ML/MIN/1.73 M2 () ??03/31/2022 03:51 ??Glucose (POC) POC Cartridge ??103 (High) ??03/30/2022 16:22 ??Ionized Calcium (POC) POC Cartridge ??1.08 mmol/L (Low) ??03/30/2022 16:22 ??Potassium (POC) POC Cartridge ??3.0 mmol/L (Low) ??03/30/2022 16:22 ??Protein, Total ??5.2 Gm/dL (Low) ??03/31/2022 03:51 ? COAG ??Protime (PT) ??11.6 seconds (High) ??03/30/2022 16:21 ? MISC. CHEMISTRY ??Hold Red Top ??SPECIMEN DISCARDED AFTER 1 WEEK () ??03/30/2022 20:02 ? TOXICOLOGY/TDM ??Acetaminophen Level ??<5 mg/L (Low) ??03/30/2022 16:21 ??Amphetamine Screen, Urine ??NONE DETECTED () ??03/30/2022 20:16 ??Barbiturate Screen, Urine ??NONE DETECTED () ??03/30/2022 20:16 ??Benzodiazepine Screen, Urine ??POSITIVE (Abnormal) ??03/30/2022 20:16 ??Cannabinoid Screen, Urine ??POSITIVE (Abnormal) ??03/30/2022 20:16 ??Cocaine Metabolite Screen, Urine ??POSITIVE (Abnormal) ??03/30/2022 20:16 ??Ethanol, Serum or Plasma ??NONE DETECTED mg/dL () ??03/30/2022 16:21 ??Ethylene Glycol Level ??NONE DETECTED () ??03/30/2022 20:02 ??Opiate Screen, Urine ??NONE DETECTED () ??03/30/2022 20:16 ??Salicylate Level ??<0.3 mg/dL (Low) ??03/30/2022 16:21 ? UA/URINALYSIS ??Albumin, Urine ??NEGATIVE () ??03/30/2022 20:16 ??Appear/Color, Urine ??COLORLESS () ??03/30/2022 20:16 ??Bilirubin, Urine ??NEGATIVE () ??03/30/2022 20:16 ??Glucose, Urine ??NEGATIVE () ??03/30/2022 20:16 ??Hemoglobin, Urine ??NEGATIVE () ??03/30/2022 20:16 ??Hold Urine Culture ??Testing available 48 hours from time of collection. () ??03/30/2022 20:16 ??Ketones, Urine ??NEGATIVE () ??03/30/2022 20:16 ??Leukocyte, Urine ??NEGATIVE () ??03/30/2022 20:16 ??Nitrite, Urine ??NEGATIVE () ??03/30/2022 20:16 ??Urobilinogen ??NORMAL mg/dL () ??03/30/2022 20:16 ? Note: Critical results are displayed in red. ? Blood Glucose Trend Glucose Level: 96 mg/dL (03/31/22 03:51:00) Glucose Level: 96 mg/dL (03/30/22 16:21:00) Glucose (POC) POC Cartridge:??103??High (03/30/22 16:22:00) Glucose, POC: 96 mg/dL (03/30/22 20:17:00) ? CBC, CBC w/Diff?? CBC?? Differential?? WBC: 5.2 k/mm3 (03:51) Abs. Neut: 5.8 k/mm3 (20:02) RBC:??3.89 m/mm3??Low (03:51) Abs. Lymph: 1.4 k/mm3 (20:02) Hct:??37.9 %??Low (03:51) Abs. Wheeler: 0.5 k/mm3 (20:02) RDW-SD: 43.9 femtoliters (:51) Abs. Eo: 0 k/mm3 (20:02) Nucleated RBC (Automated): 0 #/100 WBC'S (03:51) Abs. Baso: 0 k/mm3 (20:02) Abs. NRBC: 0 k/mm3 (:51) Neut %: 74.6 % (20:02) ?? Lymph %: 18.2 % (20:02) ?? Wheeler %: 6 % (20:02) ?? Eos %: 0.3 % (20:02) ?? Baso %: 0.4 % (20:02) ?? Hemoglobin (POC) POC Cartridge: 16.7 Gm/dL (16:22) ?? Hematocrit (POC) POC Cartridge: 49 % (16:22) ?? Imm Gran: 0.5 % (20:02) ?? Abs. Imm Gran: 0 k/mm3 (20:02) ? BMP, Mg, and Phos Anion Gap: 12 (03:51) Bicarbonate Level:??21 mmol/L??Low (03:51) BUN: 9 mg/dL (03:51) Calcium:??8.1 mg/dL??Low (03:51) Calcium, Ionized pH Corrected: 1.23 mmol/L (16:21) Chloride:??111 mmol/L??High (03:51) Creatinine-Blood: 0.8 mg/dL (03:51) Creatinine-Blood: 0.8 mg/dL (03:51) Estimated GFR Creatinine: 112 ML/MIN/1.73 M2 (03:51) Estimated GFR Creatinine: 111 ML/MIN/1.73 M2 (03:51) Glucose Level: 96 mg/dL (03:51) Ionized Calcium (POC) POC Cartridge:??1.08 mmol/L??Low (16:22) Magnesium: 1.9 mg/dL (03:51) Potassium: 5 mmol/L (03:51) Sodium: 144 mmol/L (03:51) ?? Urinalysis Albumin, Urine: NEGATIVE (20:16) Appear/Color, Urine: COLORLESS (20:16) Bilirubin, Urine: NEGATIVE (20:16) Glucose, Urine: NEGATIVE (20:16) Hemoglobin, Urine: NEGATIVE (20:16) Hold Urine Culture: Testing available 48 hours from time of collection. (20:16) Ketones, Urine: NEGATIVE (20:16) Leukocyte, Urine: NEGATIVE (20:16) Nitrite, Urine: NEGATIVE (20:16) Osmolality, Urine Random: 167 mOsm/kg (20:16) pH, Urine: 5.5 (20:16) RBC's, Urine: 1 /HPF (20:16) Specific Chest[place], Urine: 1.02 (20:16) Urobilinogen: NORMAL (20:16) WBC's, Urine: 1 /HPF (20:16) ? Assessment/Plan ? Diagnoses Hematemesis ??(K92.0) Ingestion of toxic substance ??(T65.91XA) ?? Assessment:??46-year-old male with PMH significant for substance use disorder (cocaine/alcohol/tobacco) chronic hepatitis C, GERD, anxiety and depression who came to ER with complaints of hematemesisafter ingestion of something from a Gatorade bottle from a coworkers truck now intubated for airwayprotection and pending EGD with GI. Maryanne - GIB ?EGD noon, DO NOT put OG or NG Neuro History of polysubstance use disorder (cocaine/opioids/alcohol/cigarette smoker) Bipolar disorder PTSD Anxiety and depression History of migraine headaches/Prior TBI Unclear if this was a suicide attempt, does not seem like it from patient's narrative of events however important to evaluate once patient extubated. Since patient ingested the contents of the Gatorade bottle which were not exactly known, open bottle at a friend's car. It would be reasonable to obtain serum ethylene glycol, methanol and isopropyl alcohol levels. As per poison control, this could be requested from [facility] labs ([phone]) it would be prudent to rule this out. As per outside meds, gabapentin 600 mg 3 times daily and ibuprofen 800 mg every 8 hours supposedly for headaches Currently intubated and sedated for airway protection. Serum tox negative for salicylates, acetaminophen and ethanol. Ammonia levels normal 23. Urine tox +benzo(got in ED), cocaine, cannabinoids. ?? Plan ???Continue fentanyl for pain control with CPOT less than 2 ???Propofol gtt. and ketamine gtt. with RASS goal -2 - wean sedation, pain control as tolerated ???Would hold all antipsychotics and antidepressants for now, could consider resuming seroquel and gabapentin after EGD. Unclear exactly what he is taking- family able to provide updated med list on admission and per ext most last filled August 2021. ??? Sent ethylene glycol, methanol and isopropyl alcohol levels to [facility]. Coordinating with [facility] reference labs. These will be sent Saturday morning. Samples already sent down to main [facility] lab. Follow-up toxicologies. ??? Poison control following. ?? Cardiovascular Hypertension Evident hypotension post sedation???now improved In setting of anxiety and ongoing vomiting, Patient was borderline hypotensive. And later developedhypotension after sedation which is now improved after 2 L of fluids. ?? Plan ??? Monitor hemodynamics ?? Pulmonary Intubated for airway protection. No acute pulmonary pathology identified. Current heavy cigarette smoker ?? Plan ??? Vent support. Wean as tolerated ??? Daily sedation location and hopefully plan for extubation tomorrow after EGD ?? GI Hematemesis Concern for mucosal ulceration in setting of unknown substance ingestion History of GERD, Hepatitis C Patient presented with multiple episodes of vomiting, retching and what he explained as streaks of blood. [id number] H&H was stable on initial evaluation. He does have a history of hep C, no documented cirrhosis however likely patient has underlying disease. CT abdomen pelvis obtained that showed normal morphology of liver and normal size of spleen making it unlikely. This puts varices down on the differentials however he could have gastritis in setting of recent NSAID use, heavy alcohol use and other substance use. Especially if he ingested a caustic substance, high concern for mucosal erosion/ulceration Plan for EGD today approximately noon. ?? Plan ??? IV PPI 40mg BID ??? Hold any NSAIDs, chemical DVT prophylaxis. Can be reconsidered after EGD. ??? EGD today tentatively. ?? Renal Hypokalemia Patient presented with vomiting, GI losses causing low potassium. Renal function at baseline. We dohave concern for toxic ingestion. Having good urine output. UA unremarkable. ?? Plan ??? Obtain serum osmolality And urine osmolality ? Replete potassium for K goal > 4.0 ?? Quality Metrics Code Status: Full code DVT prophylaxis: Pneumoboots. Would consider chemical DVT prophylaxis after EGD. Diet: NPO. OG tube not yet placed. Pending EGD. ?? Family: father Low Madden and mother Esthela are the next of kin and should be contacted with anyupdates and decisions. ? Yoon Bird M.D. PGY-2, Internal Medicine Pager [phone] ? * Emy Guevara MD, Esthela Reaves: PERFORM Event Display: Progress Note Hospital Authored Date: [id number] Date of Service:??03/31/22 ?? Patient seen and examined, data reviewed, case and management discussed with house staff on rounds on the date of service. I confirmed the findings and agree with the documentation of the assessment and plan of care we developed together as detailed above with the following highlights/additions/modifications. ?? Background: 46 YO M, Hx of??PSA (cocaine/alcohol/tobacco), HCV,??GERD, anxiety, depression, presented to the ED??with hematemesis after ingestion of something from a Gatorade bottle from a coworkers truck.??He??was intubated for airway protection??and admitted to MICU. ?? Interval Hx: Underwent EGD today which was unremarkable. Did well on SBT and was extubated after EGD. ?? Assessment:?? #Episodes of ?hematemesis and vomiting in setting of ingesting Gatorade with possible substance in it. EGD unremarkable. #Hx of??PSA (cocaine/alcohol/tobacco), HCV,??GERD, anxiety, depression ? Plan:?? -??Post extubation care; frequent suctioning, chest PT, incentive spirometry, OOB to chair as tolerated, advance diet as tolerated after swallow evaluation. - Potassium replacement. - Watch for alcohol withdrawal. - Rest per note below. ?? At the time of service, this patient is critically ill due to the acute impairment of 1 or more vital organ systems such that there is a high probability of imminent or life-threatening deteriorationin the patient???s condition.? Critical Care Time = 40m (This represents the total time I personally spent evaluating, managing and providing care exclusive of time spent for separately billable procedures.) * Yoon Bird MD: PERFORM Event Display: Progress Note Hospital Authored Date: EGD unremarkable, ok to extubate per GI. Extubated, intermittently confused/yelling out his mouth hurts and doesn't know where he is per RN however on reassessment calm with family member at bedside.For mouth pain ordered chloraseptic spray (RN feels ok to use spray rather than viscous lido swish and spit). PRN haldol ordered if needed for agitation per RN preference. Plan to resume seroquel since was home med (of note patient does not seem to be taking filling most of home meds consistently) to manage any further agitation as more alert and safety able to take PO meds. * Yoon Bird MD: PERFORM Event Display: Progress Note Hospital Authored Date: [id number] Updated Esthela (mother) 03/31. She says to her knowledge no hx heavy etoh or nsaid use, did have prior ?heroin use now on methadone ([facility] but Esthela is not sure of clinic name/location), did have gerd for which he was on prilosec, is on psych meds but not filling things consistently to her knowledge as well. Updated her on patient extubated, EGD unremarkable, unclear exact cause of presentation at this time. She has no other questions. * Yoon Bird MD: PERFORM Event Display: Progress Note Hospital Authored Date: [id number] passed swallow eval per RN no restrictions, per RN pt asking for food, regular diet ordered * Yoon Bird MD: PERFORM Event Display: Progress Note Hospital Authored Date: [id number] Patient now more awake, alert, talking, asking for his methadone says he takes 95mg daily ([facility] per pt). We will start methadone 30 (cannot verify due to weekend), seroquel 25mg BID (home med), gabapentin 600mg BID (home med). Appropriate for transfer out of ICU, appropriate for acute floor.? Hematemesis, intubated for airway protection-now extubated Concern for mucosal ulceration in setting of unknown substance ingestion History of GERD, Hepatitis C ?Hx heroin use now on methadone, current heavy cigarette smoker Patient presented with multiple episodes of vomiting, retching and what he explained as streaks of blood. [id number] H&H was stable on initial evaluation. Reports of unknown ingestion. Unclear if this was a suicide attempt, does not seem like it from patient's narrative of events. He does have a history of hep C, no documented cirrhosis however likely patient has underlying disease. CT abdomen pelvis obtained that showed normal morphology of liver and normal size of spleen making it unlikely. This puts varices down on the differentials however he could have gastritis in setting of recent NSAID use, heavy alcohol use and other substance use. Especially if he ingested a caustic substance, high concern for mucosal erosion/ulceration EGD unremarkable??aside from mild esophageal irritation. Patient??ok for extubation per GI. Extubated without issue. Serum tox negative for salicylates, acetaminophen and ethanol. Ammonia levels normal 23. Urine tox +benzo(got in ED), cocaine, cannabinoids. ?? Plan ??? Sent ethylene glycol, methanol and isopropyl alcohol levels to [facility] labs. Coordinating with [facility] reference labs. These will be sent Saturday morning. Samples already sent down to main [facility] lab. Follow-up toxicologies. -- as mentation improves would get further history from patient to assess if ingestion was suicide attempt or not ??? Poison control following. ??? IV PPI 40mg BID ??? Hold any NSAIDs. COnsider chemoppx in the next day or so --??methadone 30mg daily resumed (will need??verify dose with [facility]) -- consider nicotine patch in??next day or so ?? Bipolar disorder PTSD Anxiety and depression History of migraine headaches/Prior TBI Unclear what exactly patient was taking. Per ext rx not filling most meds exc gabapentin consistently. Per patient??taking methadone and wants it but unable to get further med hx. Family??did not have updated med list. ?? Plan ???resume seroquel 25mg BID and gabapentin 600mg??BID -attempt med rec with patient in??next few days as mentation/agitation??improves ?? Hypokalemia-improving Patient presented with vomiting, GI losses causing low potassium. Renal function at baseline. We dohave concern for toxic ingestion. Having good urine output. UA unremarkable.??Repeat lytes essentially unremarkable. ?? Plan ???Daily lytes and replete??lytes prn ?? Quality Metrics Code Status: Full code DVT prophylaxis: SCDs. Consider chemoppx in the next day or so. Diet: regular diet Note * Filemon HAWKINS, Mario Reaves: PERFORM Event Display: Discharge/Transfer Note Hospital Authored Date: Patient: ??MARYANNE, ESPERANZA ? Age:??46 Years?Sex:??Male?:??1975?? Patient Information Discharge Location: MICU Primary Care Physician: Camilo Shelby MD Admit Date/Time: 03/30/22 19:30 Discharge Disposition Discharge Disposition: ??Against Medical Advice (AMA) Discharge Diagnosis Hematemesis (K92.0) Ingestion of toxic substance (T65.91XA) ?? PCP Follow-Up/Heads-Up N/A Hospital Course 46-year-old male with PMH significant for substance use disorder (cocaine/alcohol/tobacco/ ?Hx heroin use now on methadone) chronic hepatitis C, GERD, anxiety and depression who came to ER with complaints of multiple episodes of retching, vomitting with reported blood streaks after unknown ingestion from a Gatorade bottle from a coworkers truck. Intubated for airway protection. Lrtex-[id number] H&H was stable on initial evaluation. Serum tox negative for salicylates, acetaminophen and ethanol.Ammonia levels normal 23. Urine tox +benzo(got in ED), cocaine, cannabinoids. CT abdomen pelvis obtained that showed normal morphology of liver and normal size of spleen. EGD unremarkable??aside frommild esophageal irritation. Patient??s/p extubation per GI. Extubated without issue. Patient decided to leave despite repeated discussion by medical staff. Patient had capacity to make the decision and left against medical advice on??03/31 at 2000, understanding??associated risks.? Assessment: Ingestion of toxic substance (T65.91XA) Mucosal ulceration in setting of unknown substance ingestion Hematemesis (K92.0) History of polysubstance use disorder Bipolar disorder Anxiety and depression Hypokalemia ?? Recommendations: outpatient follow up ?? Objective Vital Signs?? Temperature: 99.1 DegF (03/31/22 16:00:00) Temperature Route: Core Bladder (03/31/22 16:00:00) Heart Rate Monitored: 70 bpm (03/31/22 17:00:00) Respiratory Rate: 22 br/min (03/31/22 18:46:00) Vented: Yes (03/31/22 17:00:00) Systolic Blood Pressure: 115 mm Hg (03/31/22 17:00:00) Diastolic Blood Pressure: 67 mm Hg (03/31/22 17:00:00) Blood pressure sites: Arm, left (03/31/22 17:00:00) Pulse Pressure: 48 mm Hg (03/31/22 17:00:00) Oxygen Saturation: 98 % (03/31/22 17:00:00) Liters per Minute: 2 L/min (03/31/22 15:00:00) Mode of Delivery (Oxygen): Room air (03/31/22 17:00:00) FiO2: 25 % (03/31/22 13:00:00) SOFA Calculated: -1 (03/31/22 10:22:42) ? . Physical Exam Not able to obtain as patient left. Consultants Galindo Swain MD (GI) Post Discharge Care Recommended outpatient follow up. Results Discharge Labs BLOOD BANK Blood Type O Positive ()?? 03/30/2022 16:10 Antibody Screen Negative ()?? 03/30/2022 16:10 ?? BLOOD COUNT & DIFF WBC 5.2 k/mm3 ()?? 03/31/2022 03:51 RBC 3.89 m/mm3 (Low)?? 03/31/2022 03:51 Hgb 12.2 Gm/dL (Low)?? 03/31/2022 03:51 Hct 37.9 % (Low)?? 03/31/2022 03:51 MCV 97.4 femtoliters (High)?? 03/31/2022 03:51 MCH 31.4 pg ()?? 03/31/2022 03:51 MCHC 32.2 g/dL (Low)?? 03/31/2022 03:51 Platelet Count 168 k/mm3 ()?? 03/31/2022 03:51 RDW-SD 43.9 femtoliters ()?? 03/31/2022 03:51 MPV 9.6 femtoliters ()?? 03/31/2022 03:51 Nucleated RBC (Automated) 0.0 #/100 WBC'S ()?? 03/31/2022 03:51 Abs. NRBC 0.0 k/mm3 ()?? 03/31/2022 03:51 Abs. Neut 5.8 k/mm3 ()?? 03/30/2022 20:02 Abs. Lymph 1.4 k/mm3 ()?? 03/30/2022 20:02 Abs. Wheeler 0.5 k/mm3 ()?? 03/30/2022 20:02 Abs. Eo 0.0 k/mm3 ()?? 03/30/2022 20:02 Abs. Baso 0.0 k/mm3 ()?? 03/30/2022 20:02 Neut % 74.6 % ()?? 03/30/2022 20:02 Lymph % 18.2 % ()?? 03/30/2022 20:02 Wheeler % 6.0 % ()?? 03/30/2022 20:02 Eos % 0.3 % ()?? 03/30/2022 20:02 Baso % 0.4 % ()?? 03/30/2022 20:02 Hemoglobin (POC) POC Cartridge 16.7 Gm/dL ()?? 03/30/2022 16:22 Hematocrit (POC) POC Cartridge 49 % ()?? 03/30/2022 16:22 Imm Gran 0.5 % ()?? 03/30/2022 20:02 Abs. Imm Gran 0.0 k/mm3 ()?? 03/30/2022 20:02 ?? CARDIAC CK, Total 407 units/L (High)?? 03/30/2022 16:21 Nt-Probnp 66 pg/mL ()?? 03/30/2022 16:21 High Sensitivity Troponin (HSTnT) 7 ng/L ()?? 03/30/2022 16:10 ? CHEM GENERAL Sodium 143 mmol/L ()?? 03/31/2022 12:05 Potassium HEMOLYZED mmol/L ()?? 03/31/2022 12:05 Chloride 110 mmol/L (High)?? 03/31/2022 12:05 Bicarbonate Level 21 mmol/L (Low)?? 03/31/2022 12:05 Anion Gap 12 ()?? 03/31/2022 12:05 Sodium (POC) POC Cartridge 141 mmol/L ()?? 03/30/2022 16:22 Potassium (POC) POC Cartridge 3.0 mmol/L (Low)?? 03/30/2022 16:22 Chloride (POC) POC Cartridge 101 mmol/L ()?? 03/30/2022 16:22 Glucose Level 96 mg/dL ()?? 03/31/2022 03:51 Glucose (POC) POC Cartridge 103 (High)?? 03/30/2022 16:22 Glucose, POC 81 mg/dL ()?? 03/31/2022 12:14 BUN 9 mg/dL ()?? 03/31/2022 03:51 BUN (POC) POC Cartridge 14 mg/dL ()?? 03/30/2022 16:22 Creatinine-Blood 0.8 mg/dL ()?? 03/31/2022 03:51 Creatinine (POC) POC Cartridge 0.9 mg/dL ()?? 03/30/2022 16:22 Estimated GFR Creatinine 111 ML/MIN/1.73 M2 ()?? 03/31/2022 03:51 Osmolality 289 mOs/kg ()?? 03/30/2022 16:21 Calcium 8.1 mg/dL (Low)?? 03/31/2022 03:51 Calcium, Ionized pH Corrected 1.23 mmol/L ()?? 03/30/2022 16:21 Ionized Calcium (POC) POC Cartridge 1.08 mmol/L (Low)?? 03/30/2022 16:22 Magnesium 1.9 mg/dL ()?? 03/31/2022 03:51 Protein, Total 5.2 Gm/dL (Low)?? 03/31/2022 03:51 Albumin 3.6 Gm/dL ()?? 03/31/2022 03:51 AG Ratio 2.3 ()?? 03/30/2022 16:21 Alkaline Phosphatase 92 units/L ()?? 03/31/2022 03:51 Lipase 33 units/L ()?? 03/30/2022 16:21 AST (SGOT) 40 units/L ()?? 03/31/2022 03:51 ALT (SGPT) 35 units/L ()?? 03/31/2022 03:51 Bilirubin, Total 0.4 mg/dL ()?? 03/31/2022 03:51 Bilirubin, Direct <0.2 mg/dL ()?? 03/31/2022 03:51 Bilirubin, Indirect Direct bilirubin is less than the measureable limit. Therefore, indirect mg/dL ()?? 03/31/2022 03:51 Lactate 0.8 mmol/L ()?? 03/30/2022 20:02 ?? COAG INR 1.1 ()?? 03/30/2022 16:21 Protime (PT) 11.6 seconds (High)?? 03/30/2022 16:21 APTT 26.8 seconds ()?? 03/30/2022 16:21 ? MISC. CHEMISTRY Ammonia, Venous 23 ??mole/L ()?? 03/30/2022 16:21 Hold Red Top SPECIMEN DISCARDED AFTER 1 WEEK ()?? 03/30/2022 20:02 ?? TOXICOLOGY/TDM Ethanol, Serum or Plasma NONE DETECTED mg/dL ()?? 03/30/2022 16:21 Ethylene Glycol Level NONE DETECTED ()?? 03/30/2022 20:02 Salicylate Level <0.3 mg/dL (Low)?? 03/30/2022 16:21 Barbiturate Screen, Urine NONE DETECTED ()?? 03/30/2022 20:16 Cannabinoid Screen, Urine POSITIVE (Abnormal)?? 03/30/2022 20:16 Cocaine Metabolite Screen, Urine POSITIVE (Abnormal)?? 03/30/2022 20:16 Benzodiazepine Screen, Urine POSITIVE (Abnormal)?? 03/30/2022 20:16 Amphetamine Screen, Urine NONE DETECTED ()?? 03/30/2022 20:16 Opiate Screen, Urine NONE DETECTED ()?? 03/30/2022 20:16 Acetaminophen Level <5 mg/L (Low)?? 03/30/2022 16:21 Methyl Alcohol, Blood NONE DETECTED ()?? 03/30/2022 20:02 Ethyl Alcohol, Blood NONE DETECTED ()?? 03/30/2022 20:02 Ethyl Alcohol %, Blood NONE DETECTED ()?? 03/30/2022 20:02 Acetone, Blood NONE DETECTED ()?? 03/30/2022 20:02 Isopropyl Alcohol, Blood NONE DETECTED ()?? 03/30/2022 20:02 Volatiles Specimen Type SERUM/PLASMA ()?? 03/30/2022 20:02 ?? UA/URINALYSIS Appear/Color, Urine COLORLESS ()?? 03/30/2022 20:16 Specific Chestnut, Urine 1.020 ()?? 03/30/2022 20:16 pH, Urine 5.5 ()?? 03/30/2022 20:16 Albumin, Urine NEGATIVE ()?? 03/30/2022 20:16 Glucose, Urine NEGATIVE ()?? 03/30/2022 20:16 Ketones, Urine NEGATIVE ()?? 03/30/2022 20:16 Bilirubin, Urine NEGATIVE ()?? 03/30/2022 20:16 Hemoglobin, Urine NEGATIVE ()?? 03/30/2022 20:16 Nitrite, Urine NEGATIVE ()?? 03/30/2022 20:16 Leukocyte, Urine NEGATIVE ()?? 03/30/2022 20:16 Urobilinogen NORMAL mg/dL ()?? 03/30/2022 20:16 WBC's, Urine 1 /HPF ()?? 03/30/2022 20:16 RBC's, Urine 1 /HPF ()?? 03/30/2022 20:16 Hold Urine Culture Testing available 48 hours from time of collection. ()?? 03/30/2022 20:16 ?? URINE OTHER Osmolality, Urine Random 167 mOsm/kg ()?? 03/30/2022 20:16 ? Patient assessment and plan discussed with attending physician,??Dr. Simms. Mario Colbert MD Anesthesiology, PGY-1 30??minutes spent on discharge Portable XR Chest Views * [facility] , CIS S: TRANSCKervin Chaudhary MD: VERIFY Event Display: Result: Authored Date: [id number] Chest Portable Reason: Shortness of Breath; Clinical Question(s): CHF COMPARISON: 09/22/2019 FINDINGS: LINES AND TUBES: None. LUNGS AND PLEURA: Clear lungs. Normal pulmonary vascularity. No pleural effusion. No pneumothorax. HEART, MEDIASTINUM AND SUAD: Heart is normal in size. Normal mediastinal and hilar contour. BONES AND SOFT TISSUES: No acute abnormality. IMPRESSION: No acute abnormality. WSN: [id number] Ordering Physician: Xena Arroyo Dictated By: Kervin Reyna MD Dictated Date/Time: 03/30/22 5:08 pm Reviewed By: Kervin Reyna MD Signed By: Kervin Reyna MD Signed Date/Time: 03/30/22 5:08 pm Transcribed By: DEB Transcribed Date/Time: 03/30/22 5:[address] Abdomen and Pelvis W contrast IV * NATALY Mcwilliams S: TRANSCRIJosue Hoang MD: VERIFY Event Display: Result: Authored Date: [id number] CT Chest W/ Contrast, CT Abd/Pelvis W/ IV Contrast Only INDICATION: Reason: Other:; Pulmonary Lesion; Clinical Question(s): Interstitial Alveolar Infiltration. Left lower quadrant abdominal pain, evaluate for perforation. TECHNIQUE: Helical CT scan of the chest, abdomen, and pelvis with IV contrast, formatted in 3 planes. 100 cc of Omnipaque 300 was administered intravenously. This study was performed without oral contrast. Weight-based protocol was performed using automatic exposure control. CTDIvol Body: 11.00 mGy, DLP Body: 861 mGy*cm. COMPARISON: None. FINDINGS: Textile Scrap Salvager view findings, lines and tubes: Endotracheal tube terminates 3.6 cm from the hunter. Trachea and airways: Nonobstructive debris in the distal trachea. Lungs and pleura: Clear lungs. No effusion or pneumothorax. Mediastinum and suad: No mass or hematoma. No mediastinal or hilar lymphadenopathy. No esophageal abnormality. Heart: Heart is normal in size. No pericardial effusion. Aorta: No aortic aneurysm. Pulmonary arteries: Normal caliber. Chest wall soft tissues: No acute abnormality. Diaphragm: Intact. Liver: Normal in attenuation and morphology. No suspicious lesion. Gallbladder: Surgically absent. Bile ducts: No biliary ductal dilation. Spleen: Normal in size. Pancreas: No suspicious lesion or ductal dilatation. Adrenal glands: No nodule. Kidneys and ureters: No hydronephrosis, stone, or suspicious lesion. Bladder: Manzanares catheter within the bladder with a small amount of intraluminal air likely related to instrumentation. Reproductive organs: Normal-sized prostate. Nonspecific calcification within the left aspect of thepenile shaft (series 2 and on image 208). Stomach, small bowel, and large bowel: Decompressed but otherwise unremarkable stomach. Small bowelloops are normal in course and caliber. Under distended ascending and transverse colon, limiting evaluation for wall thickening. Descending and sigmoid colon are unremarkable without acute inflammatory change. Appendix: No evidence of acute appendicitis. Peritoneum and retroperitoneum: No ascites or pneumoperitoneum. No omental or mesenteric lesions. Lymph nodes: No enlarged lymph nodes. Blood vessels: No vascular calcifications or aneurysm. No evidence of venous thrombosis. Abdominal and pelvic wall soft tissues: No acute abnormality. Bones: Moderate bilateral glenohumeral degenerative changes. Intra-articular bodies noted at the left shoulder. Densely sclerotic benign bone island in the left sacral ala. Borderline pubic symphysiswidening, nonspecific and age indeterminate and the absence of any surrounding stranding. IMPRESSION: No acute abnormality in the chest, abdomen, or pelvis. Decompressed ascending and transverse colon, limiting evaluation. Colitis could be present in the proper clinical setting. WSN: [id number] Ordering Physician: Carlene Myers Dictated By: Josue Koch MD Dictated Date/Time: 03/30/22 7:49 pm Reviewed By: Josue Koch MD Signed By: Josue Koch MD Signed Date/Time: 03/30/22 7:49 pm Transcribed By: DEB Transcribed Date/Time: 03/30/22 7:[address] Chest W contrast IV * [facility] , CIS S: TRANSCRIBE Josue Koch MD: VERIFY Event Display: Result: Authored Date: [id number] CT Chest W/ Contrast, CT Abd/Pelvis W/ IV Contrast Only INDICATION: Reason: Other:; Pulmonary Lesion; Clinical Question(s): Interstitial Alveolar Infiltration. Left lower quadrant abdominal pain, evaluate for perforation. TECHNIQUE: Helical CT scan of the chest, abdomen, and pelvis with IV contrast, formatted in 3 planes. 100 cc of Omnipaque 300 was administered intravenously. This study was performed without oral contrast. Weight-based protocol was performed using automatic exposure control. CTDIvol Body: 11.00 mGy, DLP Body: 861 mGy*cm. COMPARISON: None. FINDINGS: Textile Scrap Salvager view findings, lines and tubes: Endotracheal tube terminates 3.6 cm from the hunter. Trachea and airways: Nonobstructive debris in the distal trachea. Lungs and pleura: Clear lungs. No effusion or pneumothorax. Mediastinum and suad: No mass or hematoma. No mediastinal or hilar lymphadenopathy. No esophageal abnormality. Heart: Heart is normal in size. No pericardial effusion. Aorta: No aortic aneurysm. Pulmonary arteries: Normal caliber. Chest wall soft tissues: No acute abnormality. Diaphragm: Intact. Liver: Normal in attenuation and morphology. No suspicious lesion. Gallbladder: Surgically absent. Bile ducts: No biliary ductal dilation. Spleen: Normal in size. Pancreas: No suspicious lesion or ductal dilatation. Adrenal glands: No nodule. Kidneys and ureters: No hydronephrosis, stone, or suspicious lesion. Bladder: Manzanares catheter within the bladder with a small amount of intraluminal air likely related to instrumentation. Reproductive organs: Normal-sized prostate. Nonspecific calcification within the left aspect of thepenile shaft (series 2 and on image 208). Stomach, small bowel, and large bowel: Decompressed but otherwise unremarkable stomach. Small bowelloops are normal in course and caliber. Under distended ascending and transverse colon, limiting evaluation for wall thickening. Descending and sigmoid colon are unremarkable without acute inflammatory change. Appendix: No evidence of acute appendicitis. Peritoneum and retroperitoneum: No ascites or pneumoperitoneum. No omental or mesenteric lesions. Lymph nodes: No enlarged lymph nodes. Blood vessels: No vascular calcifications or aneurysm. No evidence of venous thrombosis. Abdominal and pelvic wall soft tissues: No acute abnormality. Bones: Moderate bilateral glenohumeral degenerative changes. Intra-articular bodies noted at the left shoulder. Densely sclerotic benign bone island in the left sacral ala. Borderline pubic symphysiswidening, nonspecific and age indeterminate and the absence of any surrounding stranding. IMPRESSION: No acute abnormality in the chest, abdomen, or pelvis. Decompressed ascending and transverse colon, limiting evaluation. Colitis could be present in the proper clinical setting. WSN: [id number] Ordering Physician: Carlene Myers Dictated By: Josue Koch MD Dictated Date/Time: 03/30/22 7:49 pm Reviewed By: Josue Koch MD Signed By: Josue Koch MD Signed Date/Time: 03/30/22 7:49 pm Transcribed By: DEB Transcribed Date/Time: 03/30/22 7:38 pm Patient Care team information Care Team Personnel Name: Camilo Shelby MD Position: [facility] Primary Care Physician Member Role: PCP Address: Address: [address] [place] [id number]- [place] Name: Robyn Correa RN Position: [facility] RN Member Role: Primary Care Nurse Name: June Quinteros RN Position: [facility] RN Member Role: Primary Care Nurse Address: Address: [address] [place] [phone]- Name: Joe Alonzo RN Position: [facility] RN Supv Member Role: Primary Care Nurse Name: Melvina Perdomo RN Position: [facility] RN Supv Member Role: Primary Care Nurse Name: Marilu Malone Position: [facility] ED TA [facility] Member Role: News Operations Manager Name: Colby Henry MD Position: [facility] ED Medicine MD Member Role: ED Attending Physician Address: Address: [address] [place] [id number]- Name: Kiran Camargo RN Position: [facility] ED RN W/OE and Tasks Member Role: Patient Care Provider Name: Carlene Myers MD Position: [facility] Resident Member Role: ED Resident Address: Address: [address] [place] [address] [place] [address]- Care Team Related Persons Name: NAVEEN ROCK Name: NONE, GIVEN Address: home [address] [place] [address] [address] [place] [address] Name: OSEAS MADDEN Name: KENNY MADDEN Address: home [address] [place] [address] Name: PT STATES, NONE
--- OUTSIDE RECORDS SUMMARY | 2022-09-15 21:33 | XMS_ITS | Continuity of Care Document ---
Author Name Unknown Organization [facility] Address [address] [place] [address]- Care Team Providers Care Rail Maintenance Worker Name Role Phone Not on Staff, PCP Primary Care Physician Unavail able Encounter [facility] Date(s): 04/24/20 - 04/24/[address] [address]- Discharge Disposition: A-D/C Walkout Attending Physician: Not [...] 10/23/19 15:28:00 EDT, Route to Pharmacy Electronically, [facility]/pharmacy #[id number], 188,... Start Date: 10/23/19 Status: Ordered hydrOXYzine hydrochloride 25 mg oral tablet See Instructions, Please contact your regular ongoing health provider for future refills., # 120 tablet, 0 Refills, Maintenance, 10/23/19 15:28:00 EDT, [facility]/pharmacy #1949, 188, cm, 09/22/19 20:09:00 EDT, Height, 89, [...] capsule, 0 Refills, Maintenance, 10/23/19 15:28:00 EDT, [id number],188, cm, 09/22/19 20:09:00 EDT, Height, 89, [...] 10/23/19 15:28:00 EDT, Route to Pharmacy Electronically, [facility]/pharmacy #[id number], 188, cm, 06... Start Date: [...] recent to oldest [Reference Range]: 1 2 Oxygen Saturation [94-100 %] 100 % (04/24/20 9:34 AM) 100 % (04/24/20 9:18 AM) Pulse Rate [55-90 bpm] 70 bpm (04/24/20 9:34 AM) 76 bpm (04/24/20 9:18 AM) Blood Pressure [90-138/55-84 mm Hg] 115/ 59mm Hg (04/24/20 9:34 AM) Respiratory Rate [16-30 br/min] 20 br/mi n (04/24/20 9:34 AM) 18 br/min (04/24/20 9:18 AM) Temperature [96.8-100.4 DegF] 97.6 DegF (04/24/20 9:34 AM) Mode of Delivery (Oxygen) Room air (04/24/20 9:34 AM) Blood pressure sites Arm, right (04/24/20 9:34 AM) Temperature Route Oral (04/24/20 9:34 AM) Social History Social History Type Response Tobacco Other: Has been smok ing 0.5-1 packs/day since he was 17 years old. Sex
--- OUTSIDE RECORDS SUMMARY | 2022-09-15 21:33 | XMS_ITS | Continuity of Care Document ---
Author Name Unknown Organization [facility] Address [address] [place] [address]- Care Team Providers Care Acetylene Cutter Name Role Phone Camilo Shelby MD Primary Care [id number] Date(s[facility] 08/09/20 - 08/16/20 [facility] [address] [place] [address]- Attending Physician: Camilo Shelby MD Allergies, Adverse [...] EST, Route to Pharmacy Electronically, [facility]/pharmacy #[id number], 656,... Start Date: 06/15/20 Status: Ordered hydrOXYzine hydrochloride 25 mg oral tablet 1 tablet = 25 mg, By Mouth, 2 times a day, # 60 tablet, 5 Refills, Maintenance, 06/15/20 13:43:00 EST, [facility]/pharmacy #[id number], 186, cm, 06/15/20 13:02:00 EST, Height, [...] 60 capsule, 4 Refills, Maintenance, 06/15/20 15:40:00EST, [facility]/pharmacy #[id number], Partial fill upon patient request if the prescription is for a schedule IIopioid drug., 186, cm, 06/15/20 13:02:00 EST, Heigh... Start Date: 06/15/20 Status: Ordered prazosin 2 mg oral capsule 1 capsule = 2 mg, By Mouth, Daily at bedtime, Please contact your regular ongoing health provider for future refills., # 30 capsule, 0 Refills, Maintenance, 10/23/19 15:28:00 EDT, [facility]/pharmacy #[id number],188, cm, 09/22/19 20:09:00 EDT, Height, 89, [...] EST, Route to Pharmacy Electronically, [facility]/pharmacy #[id number], 186, cm, 02... Start Date: 06/15/20 Status: Ordered Zofran 4 mg oral tablet 1 tablet = 4 mg, By Mouth, Every 8 hours, # 12 tablet, 0 Refills, Maintenance, 06/15/20 13:42:00 EST, Tablet, [facility]/pharmacy #[id number], Partial fill upon patient request if the [...] Most recent to oldest [Reference Range]: 1 Height 186 cm (08/09/20 2:08 PM) Weight 106.5 kg (08/09/20 2:08 PM) Oxygen Saturation [94-100 %] 97 % (08/09/20 2:08 PM) Pulse Rate [55-90 bpm] 98 bpm *H* (08/09/20 2:08 PM) Body Mass Index [18.5-24.99] 30.78 *>HHI* (08/09/20 2:08 PM) Blood Pressure [90-138/55-84 mm Hg] 130/ 78mm Hg (08/09/20 2:08 PM) Respiratory Rate [16-30 br/min] 18 br/mi n (08/09/20 2:08 PM) Temperature [96.8-100.4 DegF] 98.6 DegF (08/09/20 2:08 PM) Mode of Delivery (Oxygen) Room air (08/09/20 2:08 PM) Blood pressure sites Arm, left (08/09/20 2:08 PM) Temperature Route Temporal (08/09/20 2:08 PM) Social History Social History Type Response Tobacco Other: Has been smok ing 0.5-1 packs/day since he was 17 years old. Sex
--- OUTSIDE RECORDS SUMMARY | 2022-09-15 21:33 | XMS_ITS | Continuity of Care Document ---
Author Name Unknown Organization [facility] [place] Address [address] [place] [address]- Care Team Providers Care American Studies Professor Name Role Phone Dawson DUDLEY, Rafael Sarmiento Primary Care Physician Encounter [facility] Date(s): 04/24/19 - 05/31/19 [facility] [place] [address] [place] [address]- [facility] Attending Physician: Chrissie HAWKINS ([facility]), Esthela Menard Allergies, Adverse Reactions, Alerts Substance Reaction Severity [...]
--- OUTSIDE RECORDS SUMMARY | 2022-09-15 21:33 | XMS_ITS | Continuity of Care Document ---
Author Name Unknown Organization [facility] Address [address] [place] [address]- Care Team Providers Care Control Clerk Repairs Name Role Phone Camilo Shelby MD Primary Care Physician Encounter [facility] NBR [id number] Date(s): 01/10/22 - 02/09/22 [facility] [address] [place] [address]- [place] Allergies, Adverse Reactions, Alerts Substance Reaction Severity Status clindamycin Active shellfish Active Fish Persistent Severe Active penicillin anaphylaxis rash, N&V, swelling throat swelling and penut butteq Active Cleocin T Active Immunizations Given and [...] capsule, 2 Refills, Maintenance, 11/05/20 14:38:00 EDT, [facility], 186, cm, 10/31/20 12:49:00 EDT, Height, 112.9, [...] Personnel Name: Camilo Shelby MD Address: Address: [address] [place] [address]
--- OUTSIDE RECORDS SUMMARY | 2022-09-15 21:33 | XMS_ITS | Continuity of Care Document ---
Author Name Unknown Organization [facility] Address [address] [place] [address]- Care Team Providers Care Computer Aided Design Designer Name Role Phone Camilo Shelby MD Primary Care Physician [id number] Date(s): 10/31/20 - 11/07/20 [facility] [address] [place] [address]- Attending Physician: Eunice Espinal MD Allergies, Adverse Reactions, Alerts Substance Reaction [...] 06/15/20 13:35:00 EST, Route to Pharmacy Electronically, [facility]/pharmacy #[id number], 186,... Start Date: 06/15/20 Status: Ordered hydrOXYzine hydrochloride 25 mg oral tablet 1 tablet = 25 mg, By Mouth, 2 times a day, # 60 tablet, 5 Refills, Maintenance, 06/15/20 13:43:00 EST, [facility]/pharmacy #5387, 186, cm, 06/15/20 13:02:00 EST, Height, 112.9, [...] Refills, Maintenance, 11/05/20 14:38:00 EDT, [facility], 186, cm, 10/31/20 12:49:00 EDT, Height, 112.9, kg, 04/24/20 11:17:00 EST, Dry Weight Start Date: 11/05/20 Status: Ordered prazosin 2 mg oral capsule 1 capsule = 2 mg, By Mouth, Daily at bedtime, Please contact your regular ongoing health provider for future refills., # 30 capsule, 0 Refills, Maintenance, 10/23/19 15:28:00 EDT, [facility]/pharmacy #[id number],188, cm, 09/22/19 20:09:00 EDT, Height, 89, kg, 06/... Start Date: 10/23/19 Status: Ordered venlafaxine 75 mg oral capsule, extended release 75 mg, 1, capsule, By Mouth, Daily, Please contact your regular ongoing health provider for future refills., # 30 capsule, Refills 5, Tot. Refills 5, Maintenance, 06/15/20 13:35:00 EST, Route to Pharmacy Electronically, [facility]/pharmacy #[id number], 186, cm, 02... Start Date: 06/15/20 Status: Ordered Zofran 4 mg oral tablet 1 tablet = 4 mg, By Mouth, Every 8 hours, # 12 tablet, 0 Refills, Maintenance, 06/15/20 13:42:00 EST, Tablet, [facility]/pharmacy #[id number], Partial fill upon patient request if the prescription is for a schedule II opioid drug., 186, cm, 06/15/20 13:02:00 EST,... Start Date: 2/24/21 Status: Ordered Problem List Condition Effective Dates [...] oldest [Reference Range]: 1 Height 186 cm (10/31/20 12:49 PM) Social History Social History Type Response Tobacco Other: Has been smok ing 0.5-1 packs/day since he was 17 years old. Sex
--- OUTSIDE RECORDS SUMMARY | 2022-09-15 21:33 | XMS_ITS | Continuity of Care Document ---
Author Name Unknown Organization [facility] Address [address] [place] [address]- Care Team Providers Care Livestock Caretaker Name Role Phone Camilo Shelby MD Primary Care Physician Encounter [facility] NBR [id number] Date(s): 01/10/22 - 02/09/22 [facility] [address] [place] [address]- Attending Physician: Kate Boone Admitting Physician: AdmKate [...] Refills, Maintenance, 11/05/20 14:38:00 EDT, [facility], 186, cm, 10/31/20 12:49:00 EDT, Height, 112.9, [...] Personnel Name: Camilo Shelby MD Address: Address: [address] [place] [id number]
--- OUTSIDE RECORDS SUMMARY | 2022-09-15 21:33 | XMS_ITS | Continuity of Care Document ---
Author Name Unknown Organization [facility] Address [address] [place] [address]- Care Team Providers Care Electronics Manufacturer Name Role Phone Not on Staff, PCP Primary Care Physician Unavail able Encounter [facility] NBR [id number] Date(s): 06/15/20 [facility] [address] [place] [address]- Attending Physician: Camilo Shelby MD Allergies, Adverse [...] 06/15/20 13:35:00 EST, Route to Pharmacy Electronically, [facility]/pharmacy #[id number], 186,... Start Date: 06/15/20 Status: Ordered hydrOXYzine hydrochloride 25 mg oral tablet 1 tablet = 25 mg, By Mouth, 2 times a day, # 60 tablet, 5 Refills, Maintenance, 06/15/20 13:43:00 EST, [facility]/pharmacy #1258, 186, cm, 06/15/20 13:02:00 EST, Height, 112.9, [...] 60 capsule, 4 Refills, Maintenance, 06/15/20 15:40:00EST, [facility]/pharmacy #[id number], Partial fill upon patient request if the prescription is for a schedule IIopioid drug., 186, cm, 06/15/20 13:02:00 EST, Heigh... Start Date: 06/15/20 Status: Ordered prazosin 2 mg oral capsule 1 capsule = 2 mg, By Mouth, Daily at bedtime, Please contact your regular ongoing health provider for future refills., # 30 capsule, 0 Refills, Maintenance, 10/23/19 15:28:00 EDT, [facility]/pharmacy #[id number],188, cm, 09/22/19 20:09:00 EDT, Height, [...] 06/15/20 13:35:00 EST, Route to Pharmacy Electronically, [facility]/pharmacy #[id number], 186, cm, 02... Start Date: 06/15/20 Status: Ordered Zofran 4 mg oral tablet 1 tablet = 4 mg, By Mouth, Every 8 hours, # 12 tablet, 0 Refills, Maintenance, 06/15/20 13:42:00 EST, Tablet, [facility]/pharmacy #[id number], Partial fill upon patient request if the [...] oldest [Reference Range]: 1 Height 186 cm (06/15/20 1:02 PM) Social History Social History Type Response Tobacco Other: Has been smok ing 0.5-1 packs/day since he was 17 years old. Sex
--- OUTSIDE RECORDS SUMMARY | 2022-09-15 21:33 | XMS_ITS | Continuity of Care Document ---
Author Name Unknown Organization [facility] [place] Address [address] [place] [address]- Care Team Providers Care Shaper Set Up Operator Name Role Phone Rafael Osman NP Primary Care Physician Encounter [facility] Date(s): 04/08/19 - 05/20/19 [facility] [place] [address] [place] [address]- [facility] Attending Physician: Rafael Osman NP Allergies, Adverse Reactions, Alerts Substance Reaction Severity [...]
--- OUTSIDE RECORDS SUMMARY | 2022-09-15 21:33 | XMS_ITS | Continuity of Care Document ---
Author Name Unknown Organization [facility] Address [address] [place] [address]- Care Team Providers Care Stump Shooter Name Role Phone Camilo Shelby MD Primary Care Physician Encounter [facility] Date(s): 06/01/22 - 06/01/[address] [address]- Encounter Diagnosis Skin rash(Final) - 06/01/22 Discharge Disposition: A-D/C Home Attending Physician: Rose HAWKINS, Curly Echevarria Admitting Physician: Rose HAWKINS, Curly Echevarria Referring Physician: Not on Staff, Referring MD [...] By Mouth, 2 times a day, for 10 days, # 20 tablet, 0 Refills, Acute 06/11/22 19:01:00 EST, 06/01/22 19:01:00 EST, Tablet, [facility]/pharmacy #0015, Partial fill upon patient request if the prescription is for a schedule II opioid drug., 1 tablet B... Start Date: 06/01/22 Stop Date: 06/11/22 Status: Ordered gabapentin 300 mg oral capsule TAKE 2 [...] opioid drug. Start Date: 03/30/22 Status: Ordered MorPHINE Immediate Release Tablet 15 mg, Tablet, By Mouth, Every 4 hours, PRN for Pain , Severe, Routine, 06/01/22 18:18:00 EST Start Date: 06/01/22 Stop Date: 06/02/22 Status: Discontinued omeprazole 20 mg oral enteric coated capsule 1 capsule, By Mouth, 2 times a day, # 60 capsule, 2 Refills, Maintenance, 11/05/20 14:38:00 EDT, [facility], 186, cm, 10/31/20 12:49:00 EDT, Height, 112.9, kg, 04/24/20 11:17:00 EST, Dry Weight Start Date: 11/05/20 Status: Ordered QUEtiapine 50 mg oral tablet [...] Range]: 1 2 3 Height 182 cm (06/01/22 3:16 PM) Weight 83.4 kg (06/01/22 3:16 PM) Oxygen Saturation [94-100 %] 96 % (06/01/22 3:16 PM) Pulse Rate [55-90 bpm] 109 bpm *H* (06/01/22 3:16 PM) Blood Pressure [90-138/55-84 mm Hg] 140/117mm Hg *H* (06/01/22 3:16 PM) Respiratory Rate [16-30 br/min] 18 br/min (06/01/22 6:58 PM) 18 br/min (06/01/22 5:58 PM) 18 br/min (06/01/22 3:16 PM) Temperature [96.8-100.4 DegF] 98 DegF (06/01/22 3:16 PM) Mode of Delivery (Oxygen) Room air (06/01/22 3:16 PM) Blood pressure sites Arm, left (06/01/22 3:16 PM) Temperature Route Temporal (06/01/22 3:16 PM) Dry Weight 83.4 kg (06/01/22 3:16 PM) Weight Obtained Via Standing scale (06/01/22 3:16 PM) Social History Social History Type Response Tobacco Other: Has been smok ing 0.5-1 packs/day since he was 17 years old. Sex Note * Rose HAWKINS, Curly Echevarria: PERFORM Event Display: Patient Education Leaflets Authored Date: [id number] Facial Cellulitis ?? [id number] Facial Cellulitis Cellulitis is an infection of the deep layers of skin. A break in the skin, such as a cut or scratch, can let bacteria under the skin. It may also occur from an infected oil gland (pimple) or hair follicle. If the bacteria get to deep layers of the skin, it can be serious. Cellulitis on the face isespecially dangerous if it affects the skin around the eyes. Cellulitis causes the affected skin to become red, swollen, warm, and sore. The reddened areas havea visible border. You may have a fever, chills, and pain. Cellulitis is treated with antibiotics taken for 7 to 10 days. Symptoms should get better 1 to 2 days after treatment is started. Make sure to take all the antibiotics for the full number of days until they are gone. Keep taking the medicine even if your symptoms go away. If not treated, cellulitis can get into the bloodstream and lymph nodes. The infection can then spread all over the body. This causes serious illness. Home care Follow these tips: ??? Take all of the antibiotic medicine exactly as directed until it's gone. Don???t miss any doses, especially during the first 7 days. Don???t stop taking it when your symptoms get better. ??? Use a washcloth soaked in cool water (cool compress) on your face to help reduce swelling and pain. Be sure to wash this compress after use to prevent spreading the infection. ??? You may use acetaminophen or ibuprofen to reduce pain. Don???t use these if you have chronic liver or kidney disease, or ever had a stomach ulcer or gastrointestinal bleeding. Talk with your healthcare provider first. ?? Follow-up care Follow up with your healthcare provider, or as advised. If your infection doesn't go away after finishing the first antibiotic, your provider may prescribe a different one. ?? When to call your healthcare provider Call your healthcare provider right away if any of these occur: ??? Fever higher of 100.4?? F (38??C) or higher, after 2 days on antibiotics ??? Red areas that spread ??? Swelling or pain that gets worse ??? Fluid leaking from the skin (pus) ??? An eyelid that swells shut or leaks fluid (pus) ??? Headache or neck pain that gets worse ??? Abnormal drowsiness or confusion ??? Seizure ??? Change ineyesight ?? Last Reviewed Date: 2021 ?? 1450-8017 [employer]. All rights reserved. This information is not intended as a substitute for professional medical care. Always follow your healthcare professional's instructions. ?? Patient Care team information Care Team Personnel Name: Camilo Shelby MD Position: S Primary Care Physician Member Role: PCP Address: Address: [address] [place] [address] [place] Name: Robyn Correa RN Position: [facility] RN Member Role: Primary Care Nurse Name: June Quinteros RN Position: [facility] RN Member Role: Primary Care Nurse Address: Address: [address] [place] [address]- [place] Name: Joe Alonzo RN Position: [facility] RN Supv Member Role: Primary Care Nurse Name: Melvina Perdomo RN Position: [facility] RN Supv Member Role: Primary Care Nurse Name: Sarah Raygoza RN Position: [facility] ED RN W/OE and Tasks Member Role: Patient Care Provider Name: Curly Rose MD Position: [facility] Resident Member Role: Admitting Physician Address: Address: [address] [place] [address]- [place] Name: Katarzyna Longoria Position: [facility] ED TA [facility] Care Team Related Persons Name: NAVEEN ROCK Name: NONE, GIVEN Address: home [address] [place] [address] [address] [place] [address] Name: JASS MADDEN Name: KENNY MADDEN Address: home [address] [place] [address] Name: PT STATES, NONE
--- OUTSIDE RECORDS SUMMARY | 2022-09-15 21:33 | XMS_ITS | Continuity of Care Document ---
Author Name Unknown Organization [facility] Address [address] [place] [address]- Care Team Providers Care Personal Lines Account Manager Name Role Phone Camilo Shelby MD Primary Care Physician Encounter [facility] Date(s): 08/17/20 - 09/16/20 [facility] [address] [place], [place] [address] Attending Physician: AdmKate mahoney Admitting Physician: AdmtrKate Referring Physician: Admtr, Ar8 Allergies, Adverse Reactions, [...] EST, Route to Pharmacy Electronically, [facility]/pharmacy #[id number], 170,... Start Date: 06/15/20 Status: Ordered hydrOXYzine hydrochloride 25 mg oral tablet 1 tablet = 25 mg, By Mouth, 2 times a day, # 60 tablet, 5 Refills, Maintenance, 06/15/20 13:43:00 EST, [facility]/pharmacy #[id number], 186, cm, 06/15/20 13:02:00 EST, Height, [...] 4 Refills, Maintenance, 06/15/20 15:40:00EST, [facility]/pharmacy #[id number], Partial fill upon patient [...] Refills, Maintenance, 10/23/19 15:28:00 EDT, [facility]/pharmacy #[id number],188, cm, 09/22/19 20:09:00 EDT, [...] EST, Route to Pharmacy Electronically, [facility]/pharmacy #[id number], 186, cm, 02... Start Date: 06/15/20 Status: Ordered Zofran 4 mg oral tablet 1 tablet = 4 mg, By Mouth, Every 8 hours, # 12 tablet, 0 Refills, Maintenance, 06/15/20 13:42:00 EST, Tablet, [facility]/pharmacy #[id number], Partial fill upon patient request if the [...]
--- OUTSIDE RECORDS SUMMARY | 2022-09-15 21:33 | XMS_ITS | Continuity of Care Document ---
Author Name Unknown Organization [facility] Address [address] [place] [address]- Care Team Providers Care Commercial Real Estate Appraiser Name Role Phone Camilo Shelby MD Primary Care Physician Encounter [facility] NBR [id number] Date(s): 01/10/22 - 01/17/22 [facility] [address] [place] [address]- Attending Physician: Eunice Espinal MD Allergies, Adverse [...] Refills, Maintenance, 11/05/20 14:38:00 EDT, [facility], 186, cm, 10/31/20 12:49:00 EDT, Height, 112.9, [...] recent to oldest [Reference Range]: 1 Height 187 cm (01/10/22 2:12 PM) Weight 95.1 kg (01/10/22 2:12 PM) Oxygen Saturation [94-100 %] 97 % (01/10/22 2:12 PM) Pulse Rate [55-90 bpm] 70 bpm (01/10/22 2:12 PM) Body Mass Index [18.5-24.99 kg/m2] 27.2 kg/m2 *H* (01/10/22 2:12 PM) Blood Pressure [90-138/55-84 mm Hg] 114/ 66mm Hg (01/10/22 2:12 PM) Temperature [96.8-100.4 DegF] 97.8 DegF (01/10/22 2:12 PM) Liters per Minute 0 L/min (01/10/22 2:12 PM) Mode of Delivery (Oxygen) Room air (01/10/22 2:12 PM) Blood pressure sites Arm, left (01/10/22 2:12 PM) Temperature Route Temporal (01/10/22 2:12 PM) Weight Obtained Via Standing scale (01/10/22 2:12 PM) Social History Social History Type Response Tobacco Other: Has been smok ing 0.5-1 packs/day since he was 17 years old. Sex Patient Care team information Personnel Name: Camilo Shelby MD Address: Address: [address] [place] [id number]
--- OUTSIDE RECORDS SUMMARY | 2022-09-15 21:33 | XMS_ITS | Continuity of Care Document ---
Author Name Unknown Organization [facility] Address [address] [place] [address]- Care Team Providers Care Datastage Consultant Name Role Phone Cortney DUDLEY, Andrade Shore Primary Care Physician ( [phone] Encounter [facility] Date(s): 04/08/19 - 07/10/19 [facility] [address] [address]- [facility] Attending Physician: See Miller MD Referring Physician: Rafael Osman NP Allergies, Adverse Reactions, [...]
--- OUTSIDE RECORDS SUMMARY | 2022-09-15 21:33 | XMS_ITS | Continuity of Care Document ---
Author Name Unknown Organization [facility] Address [address] [place] [address]- Care Team Providers Care Frit Coater Name Role Phone Camilo Shelby MD Primary Care Physician Encounter [facility] Date(s): 11/19/20 - 11/19/[address] [address]- Discharge Disposition: A-D/C Home Attending Physician: Alexis [...] 06/15/20 13:35:00 EST, Route to Pharmacy Electronically, [facility]/pharmacy #[id number], 186,... Start Date: 06/15/20 Status: Ordered hydrOXYzine hydrochloride 25 mg oral tablet 1 tablet = 25 mg, By Mouth, 2 times a day, # 60 tablet, 5 Refills, Maintenance, 06/15/20 13:43:00 EST, [facility]/pharmacy #[id number], 186, cm, 06/15/20 13:02:00 EST, Height, 112.9, [...] Refills, Maintenance, 11/05/20 14:38:00 EDT, [id number], 186, cm, 10/31/20 12:49:00 EDT, Height, 112.9, kg, 04/24/20 11:17:00 EST, Dry Weight Start Date: 11/05/20 Status: Ordered prazosin 2 mg oral capsule 1 capsule = 2 mg, By Mouth, Daily at bedtime, Please contact your regular ongoing health provider for future refills., # 30 capsule, 0 Refills, Maintenance, 10/23/19 15:28:00 EDT, [facility]/pharmacy #[id number], cm, 09/22/19 20:09:00 EDT, Height, 89, kg, /... Start Date: 10/23/19 Status: Ordered venlafaxine 75 mg oral capsule, extended release 75 mg, 1, capsule, By Mouth, Daily, Please contact your regular ongoing health provider for future refills., # 30 capsule, Refills 5, Tot. Refills 5, Maintenance, 06/15/20 13:35:00 EST, Route to Pharmacy Electronically, [facility]/pharmacy #[id number], 186, cm, 02... Start Date: 06/15/20 Status: Ordered Zofran 4 mg oral tablet 1 tablet = 4 mg, By Mouth, Every 8 hours, # 12 tablet, 0 Refills, Maintenance, 06/15/20 13:42:00 EST, Tablet, [facility]/pharmacy #[id number], Partial fill upon patient [...] Range]: 1 2 3 Height 182 cm (11/19/20 2:41 PM) 182 cm (11/19/20 1:14 PM) 182 cm (11/19/20 1:13 PM) Weight 104 kg (11/19/20 2:41 PM) 104 kg (11/19/20 1:14 PM) 104 kg (11/19/20 1:13 PM) Oxygen Saturation [94-100 %] 98 % (11/19/20 2:41 PM) 99 % (11/19/20 1:13 PM) Pulse Rate [55-90 bpm] 63 bpm (11/19/20 2:41 PM) 78 bpm (11/19/20 1:13 PM) Body Mass Index [18.5-24.99] 31.4 *>HHI* (11/19/20 2:41 PM) 31.4 *>HHI* (11/19/20 1:13 PM) Blood Pressure [90-138/55-84 mm Hg] 135/91mm Hg (11/19/20 2:41 PM) 127/86mm Hg (11/19/20 1:13 PM) Respiratory Rate [16-30 br/min] 16 br/min (11/19/20 2:41 PM) 18 br/min (11/19/20 1:13 PM) Temperature [96.8-100.4 DegF] 97.8 DegF (11/19/20 1:13 PM) Mode of Delivery (Oxygen) Room air (11/19/20 2:41 PM) Room air (11/19/20 1:13 PM) Temperature Route Temporal (11/19/20 1:13 PM) Dry Weight 104 kg (11/19/20 2:41 PM) 104 kg (11/19/20 1:14 PM) 104 kg (11/19/20 1:13 PM) Social History Social History Type Response Tobacco Other: Has been smok ing 0.5-1 packs/day since he was 17 years old. Sex
--- OUTSIDE RECORDS SUMMARY | 2022-09-15 21:33 | XMS_ITS | Continuity of Care Document ---
Author Name Unknown Organization [facility] ter Address [address] [place] [address]- Care Team Providers Care Mine Car Dispatcher Name Role Phone Not on Staff, PCP Primary Care Physician Unavail able Encounter [facility] Date(s): 10/01/21 - 10/01/[address] [address]- Encounter Diagnosis Abscess(Final) - 10/01/21 Discharge Disposition: A-D/C Home Attending Physician: Angela Cabrera DO Admitting Physician: Angela Cabrera DO Referring Physician: Not on Staff, Referring MD Allergies, Adverse Reactions, Alerts Substance Reaction Severity Status clindamycin Active penicillin anaphylaxis rash, N&V, swelling throat swelling and penut butteq Active shellfish Active Cleocin T Active Fish Persistent Severe Active Immunizations Given and Recorded Vaccine Date Status Refusal Reason pneumococcal 23-valent vaccine 04/11/10 Given influenza virus vaccine, inactivated 04/11/10 Give n Medications Acetaminophen Tablet 650 mg, Tablet, By Mouth, Once, STAT, 10/01/21 19:55:00 EDT, Stop date 10/01/21 19:55:00 EDT Start Date: 10/01/21 Stop Date: 10/01/21 Status: Completed Bactrim DS 800 mg-160 mg oral tablet 1 tablet, By Mouth, 2 times a day, for 7 days, Stop taking your doxycycline and start taking this.,# 14 tablet, 0 Refills, Acute 10/08/21 22:47:00 EDT, 10/01/21 22:47:00 EDT, Tablet, [id number], Partial fill upon patient request if the prescr... Start Date: 10/01/21 Stop Date: 10/08/21 Status: Ordered cloNIDine 0.1 mg oral tablet 0.1 mg, 1, tablet, By Mouth, 2 times a day, Please contact your regular ongoing health provider forfuture refills., # 60 tablet, Refills 5, Tot. Refills 5, Maintenance, 06/15/20 13:35:00 EST, Route to Pharmacy Electronically, [facility]/pharmacy #[id number], 186,... Start Date: 06/15/20 Status: Ordered hydrOXYzine hydrochloride 25 mg oral tablet 1 tablet, By Mouth, 2 times a day, # 60 tablet, 5 Refills, [id number], 182, cm, 11/19/20 14:41:00 EDT, Height, 104, [...] capsule, 2 Refills, Maintenance, 11/05/20 14:38:00 EDT, [id number], 186, cm, 10/31/20 12:49:00 EDT, Height, 112.9, kg, 04/24/20 11:17:00 EST, Dry Weight Start Date: 11/05/20 Status: Ordered prazosin 2 mg oral capsule 1 capsule = 2 mg, By Mouth, Daily at bedtime, Please contact your regular ongoing health provider for future refills., # 30 capsule, 0 Refills, Maintenance, 10/23/19 15:28:00 EDT, [facility]/pharmacy #[id number], cm, 09/22/19 20:09:00 EDT, Height, 89, kg, ... Start Date: 10/23/19 Status: Ordered venlafaxine 75 mg oral capsule, extended release 1 capsule, By Mouth, Daily, # 30 capsule, 5 Refills, [id number], 182, cm, 11/19/20 14:41:00 EDT, Height, 104, kg, 11/19/20 14:41:00 EDT, Dry Weight Start Date: 01/11/21 Status: Ordered Zofran 4 mg oral tablet 1 tablet = 4 mg, By Mouth, Every 8 hours, # 12 tablet, 0 Refills, Maintenance, 06/15/20 13:42:00 EST, Tablet, [id number], Partial fill upon patient request if the [...] 1 2 3 Oxygen Saturation [94-100 %] 98 % (10/01/21 10:19 PM) 98 % (10/01/21 7:53 PM) Pulse Rate [55-90 bpm] 87 bpm (10/01/21 10:19 PM) 93 bpm *H* (10/01/21 7:53 PM) Blood Pressure [90-138/55-84 mm Hg] 128/73mm Hg (10/01/21 10:19 PM) 139/69mm Hg *H* (10/01/21 7:53 PM) Respiratory Rate [16-30 br/min] 19 br/min (10/01/21 10:19 PM) 18 br/min (10/01/21 10:07 PM) 18 br/min (10/01/21 7:53 PM) Temperature [96.8-100.4 DegF] 98.3 DegF (10/01/21 10:19 PM) 98.6 DegF (10/01/21 7:53 PM) Mode of Delivery (Oxygen) Room air (10/01/21 10:19 PM) Room air (10/01/21 7:53 PM) Blood pressure sites Arm, left (10/01/21 10:19 PM) Arm, left (10/01/21 7:53 PM) Temperature Route Oral (10/01/21 10:19 PM) Oral (10/01/21 7:53 PM) Social History Social History Type Response Tobacco Other: Has been smok ing 0.5-1 packs/day since he was 17 years old. Sex
--- OUTSIDE RECORDS SUMMARY | 2022-09-15 21:33 | XMS_ITS | Continuity of Care Document ---
Author Name Unknown Organization [facility] Address [address] [place] [address]- Care Team Providers Care Vessel Operator Name Role Phone Camilo Shelby MD Primary Care Physician Encounter [facility] Date(s): 10/28/20 [facility] [address] [place] [address]- Allergies, Adverse Reactions, Alerts Substance Reaction Severity [...] 06/15/20 13:35:00 EST, Route to Pharmacy Electronically, [facility]/pharmacy #[id number], 186,... Start Date: 06/15/20 Status: Ordered hydrOXYzine hydrochloride 25 mg oral tablet 1 tablet = 25 mg, By Mouth, 2 times a day, # 60 tablet, 5 Refills, Maintenance, 06/15/20 13:43:00 EST, [facility]/pharmacy #[id number], 186, cm, 06/15/20 13:02:00 EST, Height, 112.9, [...] Refills, Maintenance, 11/05/20 14:38:00 EDT, [id number], 186, cm, 10/31/20 12:49:00 EDT, Height, 112.9, kg, 04/24/20 11:17:00 EST, Dry Weight Start Date: 11/05/20 Status: Ordered prazosin 2 mg oral capsule 1 capsule = 2 mg, By Mouth, Daily at bedtime, Please contact your regular ongoing health provider for future refills., # 30 capsule, 0 Refills, Maintenance, 10/23/19 15:28:00 EDT, [facility]/pharmacy #[id number],188, cm, 09/22/19 20:09:00 EDT, Height, 89, kg, 06/... Start Date: 10/23/19 Status: Ordered venlafaxine 75 mg oral capsule, extended release 75 mg, 1, capsule, By Mouth, Daily, Please contact your regular ongoing health provider for future refills., # 30 capsule, Refills 5, Tot. Refills 5, Maintenance, 06/15/20 13:35:00 EST, Route to Pharmacy Electronically, [facility]/pharmacy #[id number], 186, cm, 02... Start Date: 06/15/20 Status: Ordered Zofran 4 mg oral tablet 1 tablet = 4 mg, By Mouth, Every 8 hours, # 12 tablet, 0 Refills, Maintenance, 06/15/20 13:42:00 EST, Tablet, [facility]/pharmacy #[id number], Partial fill upon patient request [...]
--- OUTSIDE RECORDS SUMMARY | 2022-09-15 21:33 | XMS_ITS | Continuity of Care Document ---
Author Name Unknown Organization [facility] Address [address] [place] [address]- Care Team Providers Care Commercial Announcer Name Role Phone Camilo Shelby MD Primary Care Physician Encounter [facility] Date(s): 11/29[facility]20 [facility] [address] [place] [id number] [place] Allergies, Adverse Reactions, Alerts Substance Reaction [...] 06/15/20 13:35:00 EST, Route to Pharmacy Electronically, [facility]/pharmacy #[id number], 005,... Start Date: 06/15/20 Status: Ordered hydrOXYzine hydrochloride 25 mg oral tablet 1 tablet = 25 mg, By Mouth, 2 times a day, # 60 tablet, 5 Refills, Maintenance, 06/15/20 13:43:00 EST, [facility]/pharmacy #[id number], 186, cm, 06/15/20 13:02:00 EST, Height, 112.9, [...] Refills, Maintenance, 11/05/20 14:38:00 EDT, [facility], 186, cm, 10/31/20 12:49:00 EDT, Height, 112.9, kg, 04/24/20 11:17:00 EST, Dry Weight Start Date: 11/05/20 Status: Ordered prazosin 2 mg oral capsule 1 capsule = 2 mg, By Mouth, Daily at bedtime, Please contact your regular ongoing health provider for future refills., # 30 capsule, 0 Refills, Maintenance, 10/23/19 15:28:00 EDT, [facility]/pharmacy #[id number], cm, 09/22/19 20:09:00 EDT, Height, 89, kg, /... Start Date: 10/23/19 Status: Ordered venlafaxine 75 mg oral capsule, extended release 75 mg, 1, capsule, By Mouth, Daily, Please contact your regular ongoing health provider for future refills., # 30 capsule, Refills 5, Tot. Refills 5, Maintenance, 06/15/20 13:35:00 EST, Route to Pharmacy Electronically, [facility]/pharmacy #[id number], 186, cm, 02... Start Date: 06/15/20 Status: Ordered Zofran 4 mg oral tablet 1 tablet = 4 mg, By Mouth, Every 8 hours, # 12 tablet, 0 Refills, Maintenance, 06/15/20 13:42:00 EST, Tablet, [facility]/pharmacy #[id number], Partial fill upon patient request [...]
--- OUTSIDE RECORDS SUMMARY | 2022-09-15 21:33 | XMS_ITS | Continuity of Care Document ---
Author Name Unknown Organization [facility] Address [address] [place] [address]- Care Team Providers Care Store Shopper Name Role Phone Dawson DUDLEY, Rafael Sarmiento Primary Care Physician [phone] Encounter [facility] Date(s): 02/25/19 - 04/12/19 [facility] [address] [place] [address]- [facility] Attending Physician: Leena HAWKINS, Mayo Valverde Allergies, Adverse Reactions, Alerts Substance Reaction Severity [...]
--- OUTSIDE RECORDS SUMMARY | 2022-09-15 21:33 | XMS_ITS | Continuity of Care Document ---
Author Name Unknown Organization [email or web address] Address [address] [place] [address]- Care Team Providers Care Rater Associate Name Role Phone Camilo Shelby MD Primary Care Physician Encounter [facility] [id number] Date(s): 01/12/22 - 02/11/22 [facility] [address] [place] [address] [place] Allergies, Adverse Reactions, Alerts Substance Reaction [...] capsule, 2 Refills, Maintenance, 11/05/20 14:38:00 EDT, [facility], 186, cm, 10/31/20 12:49:00 EDT, Height, 112.9, [...] Personnel Name: Camilo Shelby MD Address: Address: [address] [place] [address]
--- NOTE | 2022-09-15 21:57 | ED.GENADULT ---
HPI - General Adult General Chief complaint: Psychiatric Symptoms Stated complaint: crisis Time Seen by Provider: 09/15/22 21:51 Source: patient, RN notes reviewed and old records reviewed Mode of arrival: ambulatory Limitations: no limitations History of Present Illness HPI narrative: 47-year-old male presents for evaluation of suicidal ideation Patient reports that he has had increased depression over the last week with suicidal ideation. He reports that ?I have tried to OD on opiates twice to kill myself. ? He reports that he intentionally overdosed on both occasions He reports using heroin, fentanyl, meth He injects into his left arm and his right shoulder area Patient reports that he has been off his meds since wearing because ?I thought I just did not need them anymore. ? Denies any fevers or chills Related Data Home Medications Medication Instructions Recorded Confirmed methadone 10 mg/mL oral 125 mg PO DAILY 09/16/22 09/16/22 concentrate (Methadose) omeprazole 20 mg capsule,delayed 20 mg PO DAILY 09/16/22 09/16/22 release Allergies Allergy/AdvReac Type Severity Reaction Status Date / Time shellfish derived Allergy Severe SWELLING, Verified 09/15/22 22:37 DIFFICULTY BREATHING Penicillins [PENICILLINS] AdvReac Unknown DEATHLY Verified 09/15/22 22:37 ILL From CLEOCIN Allergy Unknown REDNESS, Uncoded 01/07/20 18:11 BURNING FEELING Review of Systems Constitutional: Constitutional: Reports as per HPI, Denies chills, Denies fatigue, Denies fever(s) and Denies headache(s) ENT: Denies headache(s) Cardiovascular: Cardiovascular: Denies chest pain and Denies dyspnea Respiratory: Respiratory: Denies cough and Denies dyspnea Gastrointestinal: Gastrointestinal: Denies abdominal pain, Denies constipation and Denies vomiting Genitourinary: Genitourinary: Denies difficulty urinating and Denies dysuria Neurologic: Denies headache(s) and Denies focal weakness Psychiatric: Psychiatric: Reports depression, Reports hopelessness and Reports suicidal ideation Endocrine: Endocrine: Denies fatigue PMFSH Past Medical History Medical History Anaplasmosis Opioid use disorder, moderate, in early remission, on maintenance therapy Surgical History History of cranial surgery Social History Social History Household Members: None Housing: Unknown / Unable to assess Do you presently have visiting nurse or other home services: No Unable to assess alcohol history related to: Refusing to respond Patient Tobacco Use Status: Former Tobacco user Tobacco use type: Cigarette Cigarette Packs Per Day: 1 Cigarettes Per Day: 20.0 Smoked in Last 30 Days: Yes e-Cigarette/Vaping Use: Never Used Second Hand Smoke Exposure: Yes Substance Use Type: Amphetamines, Crack/Cocaine, Heroin, IV Drugs, Marijuana, Methamphetamine and Opiates Advance Directives: No Advance Directives Information Provided: Yes service: No Sexual orientation: Straight/Heterosexual Physical Exam ED Vital Signs: Vital Signs - 24 hr 09/15/22 21:22 09/16/22 04:05 09/16/22 09:13 Temperature 99.0 F 98.9 F 98.2 F Pulse Rate 92 81 57 Respiratory Rate 16 16 16 Blood Pressure 98/57 L 99/62 107/62 Pulse Oximetry 97 100 99 Oxygen Delivery Method Room Air Room Air 09/16/22 11:05 Temperature 98.2 F Pulse Rate 73 Respiratory Rate 16 Blood Pressure 110/61 Pulse Oximetry 99 Oxygen Delivery Method Room Air BMI result Body Mass Index 25.1 Const General: comfortable, no acute distress, alert and awake Orientation/consciousness: patient oriented x3 HENMT Head: Yes normocephalic and Yes atraumatic Eyes Eyelids: Yes eyelids normal Conjunctivae: conjunctivae normal Sclerae: sclerae normal Corneas: corneas normal Pupils: Equal, round and reactive pupils present EOM: EOMs intact bilaterally Neck Neck: Yes full ROM Resp Effort & Inspection: normal respiratory effort, able to speak in complete sentences and not labored Cardio Rate: regular rate Rhythm: regular rhythm GI Inspection: No distended Palpation (GI): Soft to palpation, not firm, nontender, no guarding and not rigid Auscultation: normoactive bowel sounds Skin Other: Multiple track seth to the left upper extremity and right clavicle/shoulder area. No significant areas of beefy red erythema or fluctuance General skin exam: no rashes or lesions noted and elasticity normal Neuro General: patient oriented x3 Cranial nerves: Yes CN's II-XII intact bilaterally, Yes Equal, round and reactive pupils present and Yes Bilaterally intact EOM present Cognition (Neuro): normal cognition Extrem Other: Moving all extremities well without any obvious deformities Psych Speech and movement: Normal speech and movement present and Clear speech present Affect: Sad affect present Attitude: cooperative Thought process: Normal thought process present Thought content: Suicidality present Course Reevaluation(s) Reevaluation #1: [place] [id number]. He just without the nursing staff to reports subjective fevers. He is mildly hypertensive we will check blood cultures lactic acid to evaluate for bacteremia given on abuse. He is currently afebrile. Time: 22:16 Reevaluation #2: Patient has a mild ENRIKE, he is not vomiting or having diarrhea, you may hydrate p.o. the patient is medically cleared at this time. Time: 23:44 Reevaluation #3: Patient IV drug user with leukocytosis with subjective fever lactic acidosis possible bacteremic will start prophylactic antibiotics plan for admission Time: 10:55 Additional Reevaluation(s): I was able to put a 20 gauge ultrasound-guided IV in the left with good drawback and was also able to draw lactic acid. Medications Administered Generic Name Dose Route Start Last Admin Trade Name Freq PRN Reason Stop Dose Admin Acetaminophen 650 mg 09/16/22 11:50 09/16/22 13:02 Acetaminophen 325 Mg Tablet PO 650 mg Q6H PRN Administration Pain, Mild (Pain Scale 1-3) Methadone HCl 125 mg 09/16/22 11:30 09/16/22 11:33 Methadone Hcl 20 Mg/2 Ml Oral.Conc PO 125 mg DAILY TAYA Administration Sodium Chloride 3 ml 09/16/22 16:00 09/16/22 13:51 0.9 % Sodium Chloride Flush 3 Ml Syringe IVFLUSH Not Given QSHIFT TAYA Discontinued Medications Generic Name Dose Route Start Last Admin Trade Name Freq PRN Reason Stop Dose Admin Sodium Chloride 1,000 mls @ 999 mls/hr 09/16/22 11:09 09/16/22 13:03 Ns IV 09/16/22 12:09 999 mls/hr .Q1H1M ONE Administration Vancomycin HCl 2,000 mg in 500 mls @ 250 mls/hr 09/16/22 11:09 09/16/22 15:29 Vancomycin/Ns IV 09/16/22 13:08 250 mls/hr ONCE ONE Infusion Cefepime HCl 2 gm/ Sodium 50 mls @ 100 mls/hr 09/16/22 11:09 09/16/22 13:03 Chloride IV 09/16/22 11:38 100 mls/hr ONCE ONE Administration Sodium Chloride 1,000 mls @ 999 mls/hr 09/16/22 13:08 09/16/22 15:49 Ns IV 09/16/22 14:08 Not Given .Q1H1M ONE Ibuprofen 800 mg 09/16/22 04:01 09/16/22 04:05 Ibuprofen 800 Mg Tablet PO 09/16/22 04:02 800 mg ONCE ONE Administration Ibuprofen 600 mg 09/16/22 13:51 09/16/22 13:55 Ibuprofen 600 Mg Tablet PO 09/16/22 13:52 600 mg ONCE ONE Administration Omeprazole 20 mg 09/16/22 04:00 09/16/22 04:03 Omeprazole 20 Mg Capsule.Dr BRIGGS 09/16/22 04:01 20 mg ONCE ONE Administration Medical Decision Making Medical Decision Making MDM Narrative: 47-year-old male presents for evaluation of suicidal ideation and polysubstance abuse. Patient reports using IV drugs but has no obvious signs of infectious cellulitis or abscess. Labs and UA pending for medical clearance. The patient will require admission consult Differential Diagnosis Polysubstance abuse Suicidal ideation Medication noncompliance Depression Lab Data 09/15/22 21:53 09/15/22 21:53 Labs: Lab Results 09/15/22 09/15/22 09/15/22 Range/Units 21:42 21:53 21:53 WBC 16.1 H (4.8-10.8) X10*3/uL RBC 4.66 (4.60-5.80) X10*6/uL Hgb 14.5 (14.0-18.0) g/dl Hct 42.7 (42.0-52.0) % MCV 91.6 (80.0-98.0) fL MCH 31.1 (27.0-33.0) pg MCHC 34.0 (31.0-36.0) g/dl RDW 12.9 (11.0-16.0) % Plt Count 131 L D (160-400) X10*3/uL MPV 9.6 (9.4-12.4) fL Immature Gran % (Auto) 0.6 H (0.0-0.4) % Neut % (Auto) 91.3 H (45-73) % Lymph % (Auto) 1.8 L (20-40) % [place] % (Auto) 3.2 (2-11) % Eos % (Auto) 2.8 (0-4) % Baso % (Auto) 0.3 (0-2) % Lymph # (Auto) 0.3 L (1.2-4.9) X10*3/uL [place] # (Auto) 0.5 (0.1-1.2) X10*3/uL Eos # (Auto) 0.5 H (0.0-0.4) X10*3/uL Baso # (Auto) 0.1 (0.0-0.2) X10*3/uL Abs Immat Gran (auto) 0.09 H (0.00-0.03) X10*3/uL Absolute Neuts (auto) 14.7 H (2.0-8.3) x10*3/uL Absolute Nucleated RBC 0.000 (0.0-0.012) X10*3/uL Nucleated RBC % (auto) 0.0 (0.0-0.2) /100WBC Smear Tech's Comments VERIFIED Sodium 138 (135-145) mmol/L Potassium 4.3 (3.3-5.1) mmol/L Chloride 98 (96-108) mmol/L Carbon Dioxide 29 (22-29) mmol/L Anion Gap 15 (12-20) BUN 20 H (9-16) mg/dL Creatinine 1.42 H (0.5-1.4) mg/dL Estim Creat Clear Calc 72.1 Estimated GFR 54 Random Glucose 111 (60-115) mg/dL Lactic Acid (0.5-2.0) mmol/L Calcium 9.5 (8.4-10.2) mg/dL Total Bilirubin 1.7 H (0.0-1.0) mg/dL AST 138 H (5-37) U/L ALT 101 H (0-40) U/L Alkaline Phosphatase 118 H (39-117) U/L Total Protein 6.8 (6.5-8.0) g/dL Albumin 4.4 (3.5-5.0) g/dL Urine Color Urine Appearance Urine pH (5.0-9.0) Ur Specific [place] (1.005-1.025) Urine Protein (Neg-Trace) mg/dL Urine Glucose (UA) (Negative) mg/dL Urine Ketones (Negative) mg/dL Urine Blood (Negative) Urine Nitrite (Negative) Ur Leukocyte Esterase (Negative) Urine Opiates Screen (Not Detect) Urine Fentanyl Screen (Not Detect) Ur Barbiturates Screen (Not Detect) Ur Phencyclidine Scrn (Not Detect) Ur Amphetamines Screen (Not Detect) U Benzodiazepines Scrn (Not Detect) Urine Cocaine Screen (Not Detect) U Marijuana (THC) Screen (Not Detect) Ethyl Alcohol < 10 mg/dL COVID-19 (EVANGELINA) Negative (Negative) COVID-19 Clin Com See Note Influenza Type A (MECHE) (Negative) Influenza Type B (MECHE) (Negative) Influenza A & B Note 09/15/22 09/15/22 09/15/22 Range/Units 22:14 22:14 22:38 WBC (4.8-10.8) X10*3/uL RBC (4.60-5.80) X10*6/uL Hgb (14.0-18.0) g/dl Hct (42.0-52.0) % MCV (80.0-98.0) fL MCH (27.0-33.0) pg MCHC (31.0-36.0) g/dl RDW (11.0-16.0) % Plt Count (160-400) X10*3/uL MPV (9.4-12.4) fL Immature Gran % (Auto) (0.0-0.4) % Neut % (Auto) (45-73) % Lymph % (Auto) (20-40) % [place] % (Auto) (2-11) % Eos % (Auto) (0-4) % Baso % (Auto) (0-2) % Lymph # (Auto) (1.2-4.9) X10*3/uL [place] # (Auto) (0.1-1.2) X10*3/uL Eos # (Auto) (0.0-0.4) X10*3/uL Baso # (Auto) (0.0-0.2) X10*3/uL Abs Immat Gran (auto) (0.00-0.03) X10*3/uL Absolute Neuts (auto) (2.0-8.3) x10*3/uL Absolute Nucleated RBC (0.0-0.012) X10*3/uL Nucleated RBC % (auto) (0.0-0.2) /100WBC Smear Tech's Comments Sodium (135-145) mmol/L Potassium (3.3-5.1) mmol/L Chloride (96-108) mmol/L Carbon Dioxide (22-29) mmol/L Anion Gap (12-20) BUN (9-16) mg/dL Creatinine (0.5-1.4) mg/dL Estim Creat Clear Calc Estimated GFR Random Glucose (60-115) mg/dL Lactic Acid (0.5-2.0) mmol/L Calcium (8.4-10.2) mg/dL Total Bilirubin (0.0-1.0) mg/dL AST (5-37) U/L ALT (0-40) U/L Alkaline Phosphatase (39-117) U/L Total Protein (6.5-8.0) g/dL Albumin (3.5-5.0) g/dL Urine Color Yellow Urine Appearance Clear Urine pH 6.0 (5.0-9.0) Ur Specific [place] 1.015 (1.005-1.025) Urine Protein Trace (Neg-Trace) mg/dL Urine Glucose (UA) Negative (Negative) mg/dL Urine Ketones Negative (Negative) mg/dL Urine Blood Negative (Negative) Urine Nitrite Negative (Negative) Ur Leukocyte Esterase Negative (Negative) Urine Opiates Screen POSITIVE H (Not Detect) Urine Fentanyl Screen POSITIVE H (Not Detect) Ur Barbiturates Screen Not Detected (Not Detect) Ur Phencyclidine Scrn Not Detected (Not Detect) Ur Amphetamines Screen POSITIVE H (Not Detect) U Benzodiazepines Scrn POSITIVE H (Not Detect) Urine Cocaine Screen POSITIVE H (Not Detect) U Marijuana (THC) Screen POSITIVE H (Not Detect) Ethyl Alcohol mg/dL COVID-19 (EVANGELINA) (Negative) COVID-19 Clin Com Influenza Type A (MECHE) Negative (Negative) Influenza Type B (MECHE) Negative (Negative) Influenza A & B Note See Note 09/16/22 Range/Units 08:44 WBC (4.8-10.8) X10*3/uL RBC (4.60-5.80) X10*6/uL Hgb (14.0-18.0) g/dl Hct (42.0-52.0) % MCV (80.0-98.0) fL MCH (27.0-33.0) pg MCHC (31.0-36.0) g/dl RDW (11.0-16.0) % Plt Count (160-400) X10*3/uL MPV (9.4-12.4) fL Immature Gran % (Auto) (0.0-0.4) % Neut % (Auto) (45-73) % Lymph % (Auto) (20-40) % [place] % (Auto) (2-11) % Eos % (Auto) (0-4) % Baso % (Auto) (0-2) % Lymph # (Auto) (1.2-4.9) X10*3/uL [place] # (Auto) (0.1-1.2) X10*3/uL Eos # (Auto) (0.0-0.4) X10*3/uL Baso # (Auto) (0.0-0.2) X10*3/uL Abs Immat Gran (auto) (0.00-0.03) X10*3/uL Absolute Neuts (auto) (2.0-8.3) x10*3/uL Absolute Nucleated RBC (0.0-0.012) X10*3/uL Nucleated RBC % (auto) (0.0-0.2) /100WBC Smear Tech's Comments Sodium (135-145) mmol/L Potassium (3.3-5.1) mmol/L Chloride (96-108) mmol/L Carbon Dioxide (22-29) mmol/L Anion Gap (12-20) BUN (9-16) mg/dL Creatinine (0.5-1.4) mg/dL Estim Creat Clear Calc Estimated GFR Random Glucose (60-115) mg/dL Lactic Acid 2.2 H* (0.5-2.0) mmol/L Calcium (8.4-10.2) mg/dL Total Bilirubin (0.0-1.0) mg/dL AST (5-37) U/L ALT (0-40) U/L Alkaline Phosphatase (39-117) U/L Total Protein (6.5-8.0) g/dL Albumin (3.5-5.0) g/dL Urine Color Urine Appearance Urine pH (5.0-9.0) Ur Specific [place] (1.005-1.025) Urine Protein (Neg-Trace) mg/dL Urine Glucose (UA) (Negative) mg/dL Urine Ketones (Negative) mg/dL Urine Blood (Negative) Urine Nitrite (Negative) Ur Leukocyte Esterase (Negative) Urine Opiates Screen (Not Detect) Urine Fentanyl Screen (Not Detect) Ur Barbiturates Screen (Not Detect) Ur Phencyclidine Scrn (Not Detect) Ur Amphetamines Screen (Not Detect) U Benzodiazepines Scrn (Not Detect) Urine Cocaine Screen (Not Detect) U Marijuana (THC) Screen (Not Detect) Ethyl Alcohol mg/dL COVID-19 (EVANGELINA) (Negative) COVID-19 Clin Com Influenza Type A (MECHE) (Negative) Influenza Type B (MECHE) (Negative) Influenza A & B Note Discharge Plan Discharge Clinical Impression: Depression with suicidal ideation, Polysubstance abuse, Sepsis Patient Disposition: Admitted As Inpatient Interventions: Blair-Suicide Risk Severity Scale Last Done: 09/16/22 13:12
[2022-09-15 22:01] LABS: Basophils Absolute Auto 0.1 X10*3/uL (0.0-0.2); Basophils Percent Auto 0.3 % (0-2); Eosinophils Absolute Auto 0.5 X10*3/uL (0.0-0.4); Eosinophils Percent Auto 2.8 % (0-4); Hematocrit 42.7 % (42.0-52.0); Hemoglobin 14.5 g/dl (14.0-18.0); Imm Gran Abs Auto 0.09 X10*3/uL (0.00-0.03); Imm Gran Pct Auto 0.6 % (0.0-0.4); Lymphocytes Absolute Auto 0.3 X10*3/uL (1.2-4.9); Lymphocytes Percent Auto 1.8 % (20-40); MANUAL DIFF FLAG SCAN; Mean Corpuscular Hemoglobin 31.1 pg (27.0-33.0); Mean Corpuscular Volume 91.6 fL (80.0-98.0); Mean Platelet Volume 9.6 fL (9.4-12.4); Monocytes Absolute Auto 0.5 X10*3/uL (0.1-1.2); Monocytes Percent Auto 3.2 % (2-11); Neutrophils Absolute Auto 14.7 x10*3/uL (2.0-8.3); Neutrophils Percent Auto 91.3 % (45-73); Platelet Count 131 X10*3/uL (160-400); Red Blood Count 4.66 X10*6/uL (4.60-5.80); Red Cell Distribution Width 12.9 % (11.0-16.0); SCAN SMEAR FLAG 1; White Blood Count 16.1 X10*3/uL (4.8-10.8)
[2022-09-15 22:07] LABS: COVID-19 Test Negative (Negative); IDNOW Serial# 6674DD1D
[2022-09-15 22:19] LABS: SLIDE REVIEW VERIFIED
[2022-09-15 22:25] LABS: Alanine Aminotransferase 101 U/L (0-40); Albumin Level 4.4 g/dL (3.5-5.0); Alkaline Phosphatase 118 U/L (39-117); Anion Gap 15 (12-20); Aspartate Amino Transferase 138 U/L (5-37); Bilirubin Total 1.7 mg/dL (0.0-1.0); Blood Urea Nitrogen 20 mg/dL (9-16); Calcium 9.5 mg/dL (8.4-10.2); Carbon Dioxide 29 mmol/L (22-29); Chloride 98 mmol/L (96-108); Creatinine Clr Calc Pharmacy 72.1; Estimated Glomerular Filt Rate 54; Ethanol < 10 mg/dL; Glucose Random 111 mg/dL (60-115); Potassium 4.3 mmol/L (3.3-5.1); Sodium 138 mmol/L (135-145); Total Protein 6.8 g/dL (6.5-8.0)
--- NOTE | 2022-09-15 22:28 | MHC.EDTECH ---
pt refusing to let tech draw blood cultures and remaining labs as pt states he wants it done later. RN MADE AWARE.
[2022-09-15 22:37] LABS: Appearance Urine Clear; Color Urine Yellow; Glucose Urine UA Negative (Negative); Leukocyte Esterase Urine Negative (Negative); Nitrite Urine Negative (Negative); Specific Gravity - Urine 1.015 (1.005-1.025); Urine Blood Negative (Negative); Urine Ketones Negative (Negative); Urine Protein Trace mg/dL (Neg-Trace)
[2022-09-15 22:50] LABS: Amphetamine Screen Urine POSITIVE (Not Detect); Barbiturates, Urine Not Detected (Not Detect); Benzodiazepines Screen Urine POSITIVE (Not Detect); Cannabinoid Screen Urine POSITIVE (Not Detect); Cocaine Screen Urine POSITIVE (Not Detect); Fentanyl, urine POSITIVE (Not Detect); Opiate Screen Urine POSITIVE (Not Detect); Phencyclidine Screen Urine Not Detected (Not Detect)
[2022-09-15 22:59] LABS: IDNOW Serial# 08D9AD1C; Influenza A Negative (Negative); Influenza B2 Negative (Negative)
[2022-09-16] MEDS: Omeprazole 20 MG CAPSULE.DR PO (04:03)
[2022-09-16 04:05] VITALS: BP 99/62; PULSE 81; RESP 16; TEMP 37.2; O2SAT 100
[2022-09-16] MEDS: Ibuprofen 800 MG TABLET PO (04:05)
--- NOTE | 2022-09-16 06:36 | PC.NURSE ---
Patient is currently in bed appears sleeping, no distress observed/reported at ths time, Ibuprofen 800 mg and Prilosec 20 mg administered as ordered at 0405 with + effect, med rec completed/patient is off his medication since May of 2022, GI upset and vomited x 2 secondary to poly-substance abuse,, behavior non concerning, VSS, care consult ordered/pending evaluation, will continue to monitor
--- NOTE | 2022-09-16 08:56 | HE.PHANOTE ---
Methadone Verifcation Pharmacy has received the methadone verification from SARAH Ricci. Patient last received methadone 125 mg on 09/15/2022 @ [id number] at [facility]. Information given by BHARAT Salmon. Mila Salomon, EuniceD
[2022-09-16 09:13] VITALS: BP 107/62; PULSE 57; RESP 16; TEMP 36.8; O2SAT 99
[2022-09-16 09:17] LABS: Lactic Acid 2.2 mmol/L (0.5-2.0)
[2022-09-16 10:47] LABS: Reflex Lactate? Lactic Acid Added
[2022-09-16 11:05] VITALS: BP 110/61; PULSE 73; RESP 16; TEMP 36.8; O2SAT 99
[2022-09-16] MEDS: methADONE HCl 20 MG/2 ML ORAL.CONC 125 MG PO (11:33)
--- NOTE | 2022-09-16 11:34 | PM.IMHP ---
History of Present Illness Date of Service: 09/16/22 Chief Complaint: Depression and suicidal thought 47 yea old male with polysubstance abuse (says he uses everthing: cocaine, heroin, fentayl, marijuana) and others, says he has no family and has been feeling depressed and is suicidal. Work up for medical clearance for Psychatric admission has revealed WBC of 16 K, ENRIKE with creatine of 1.4 and elevated lactic acid of 2.2. He has no obvious source of infection, temperature is normal althogh he says he might have had cotton fever after using yesterday. He's given Vancomycin out of concern for possible bacteremia and therefore medical admission is requested before being considered for inpatient Psych. Review of Systems Review of Systems: SI thought, subjective fever-- Yes all other systems are reviewed and are negative [facility] Medical History Anaplasmosis Opioid use disorder, moderate, in early remission, on maintenance therapy Surgical History History of cranial surgery Social History Household Members: None Housing: Apartment Do you presently have visiting nurse or other home services: No Unable to assess alcohol history related to: Refusing to respond Patient Tobacco Use Status: Former Tobacco user Tobacco use type: Cigarette Cigarette Packs Per Day: 1 Cigarettes Per Day: 20.0 Smoked in Last 30 Days: Yes e-Cigarette/Vaping Use: Never Used Second Hand Smoke Exposure: Yes Use of substances other than those prescribed or required for medical reasons: Yes Substance Use Type: Crack/Cocaine and Heroin Substance Use Frequency: Daily Last Used Substance: Days (ago) Currently Displaying Signs/Symptoms of Drug Intoxication Withdrawal: No Any prior treatment program specific to substance use: No Have you been hit, kicked, punched, or otherwise hurt by someone within the past year? If so, by whom?: No Do you feel safe in your current relationship?: No Current Relationship Is there a partner from a previous relationship who is making you feel unsafe now?: No Are you made to feel afraid or neglected: Yes Advance Directives: No Advance Directives Information Provided: Yes Suicidal Behavior: History of suicide attemps Current/Past Psychiatric Disorders: Alcohol abuse, Mood disorder and PTSD [place] Symptoms: Anxiety and Hopelessness Do you have thoughts of harming others: None Do you have a plan to hurt others: No Plan Recently lost weight without trying: No How much weight loss: Not applicable Eating poorly because of decreased appetite: No Nutrition screen score: 0 Nutrition Risks: No Nutritional Risk Poor oral hygiene: No service: No Sexual orientation: Straight/Heterosexual Meds Allergies Allergy/AdvReac Type Severity Reaction Status Date / Time shellfish derived Allergy Severe SWELLING, Verified 09/15/22 22:37 DIFFICULTY BREATHING Penicillins [PENICILLINS] AdvReac Unknown DEATHLY Verified 09/15/22 22:37 ILL From CLEOCIN Allergy Unknown REDNESS, Uncoded 01/07/20 18:11 BURNING FEELING Active Medications: Current Medications Sodium Chloride (Ns) 1,000 mls @ 999 mls/hr IV .Q1H1M ONE Stop: 09/16/22 12:09 Vancomycin HCl (Vancomycin/Ns) 2,000 mg in 500 mls @ 250 mls/hr IV ONCE ONE Stop: 09/16/22 13:08 Cefepime HCl 2 gm/ Sodium (Chloride) 50 mls @ 100 mls/hr IV ONCE ONE Stop: 09/16/22 11:38 Methadone HCl (Methadone Hcl 20 Mg/2 Ml Oral.Conc) 125 mg PO DAILY [facility] Home Medications Medication Instructions Recorded Confirmed Last Taken Type methadone 10 mg/mL oral 125 mg PO DAILY 09/16/22 09/16/22 09/15/22 09:28 History concentrate (Methadose) omeprazole 20 mg capsule,delayed 20 mg PO DAILY 09/16/22 09/16/22 Unknown History release Physical Exam Vital Signs and Narrative: Vital Signs: Last Vital Signs Temp 98.2 F 09/16/22 11:05 Pulse 73 09/16/22 11:05 Resp 16 09/16/22 11:05 BP 110/61 09/16/22 11:05 Pulse Ox 99 09/16/22 11:05 O2 Del Method Room Air 09/16/22 11:05 BMI result Body Mass Index 25.1 Const: Other: Constitutional: Alert, in no distress, Mental Status: Oriented to person, place and time. Eyes: Pupils are equal, round and reactive to light. Ear, Nose and Throat: Oropharynx clear, mucous membranes moist. e. Respiratory: Clear to auscultation. No wheezing, rales or rhonchi. Cardiovascular: S1 S2 regular. No murmurs, rubs or gallops. Gastrointestinal: Abdomen soft, non-tender, non-distended. Normal bowel sounds.? Neurologic: Cranial nerves II-XII grossly intact. No focal neurological deficits. Moves all extremities spontaneously.? Skin: No rashes or lesions.? Musculoskeletal: No cyanosis or clubbing. Psychiatric: Suicidal Results Labs 09/15/22 21:53 09/15/22 21:53 Labs: Laboratory Results - last 24 hr 09/15/22 09/15/22 09/15/22 21:42 21:53 21:53 MCV 91.6 MCH 31.1 MCHC 34.0 RDW 12.9 Plt Count 131 L D MPV 9.6 Immature Gran % (Auto) 0.6 H Neut % (Auto) 91.3 H Lymph % (Auto) 1.8 L [place] % (Auto) 3.2 Eos % (Auto) 2.8 Baso % (Auto) 0.3 Lymph # (Auto) 0.3 L [place] # (Auto) 0.5 Eos # (Auto) 0.5 H Baso # (Auto) 0.1 Abs Immat Gran (auto) 0.09 H Absolute Neuts (auto) 14.7 H Absolute Nucleated RBC 0.000 Nucleated RBC % (auto) 0.0 Smear Tech's Comments VERIFIED Anion Gap 15 Estim Creat Clear Calc 72.1 Estimated GFR 54 Random Glucose 111 Lactic Acid Calcium 9.5 Total Bilirubin 1.7 H AST 138 H ALT 101 H Alkaline Phosphatase 118 H Total Protein 6.8 Albumin 4.4 Urine Color Urine Appearance Urine pH Ur Specific [place] Urine Protein Urine Glucose (UA) Urine Ketones Urine Blood Urine Nitrite Ur Leukocyte Esterase Urine Opiates Screen Urine Fentanyl Screen Ur Barbiturates Screen Ur Phencyclidine Scrn Ur Amphetamines Screen U Benzodiazepines Scrn Urine Cocaine Screen U Marijuana (THC) Screen Ethyl Alcohol < 10 COVID-19 (EVANGELINA) Negative COVID-19 Clin Com See Note Influenza Type A (MECHE) Influenza Type B (MECHE) Influenza A & B Note 09/15/22 09/15/22 09/15/22 22:14 22:14 22:38 MCV MCH MCHC RDW Plt Count MPV Immature Gran % (Auto) Neut % (Auto) Lymph % (Auto) [place] % (Auto) Eos % (Auto) Baso % (Auto) Lymph # (Auto) [place] # (Auto) Eos # (Auto) Baso # (Auto) Abs Immat Gran (auto) Absolute Neuts (auto) Absolute Nucleated RBC Nucleated RBC % (auto) Smear Tech's Comments Anion Gap Estim Creat Clear Calc Estimated GFR Random Glucose Lactic Acid Calcium Total Bilirubin AST ALT Alkaline Phosphatase Total Protein Albumin Urine Color Yellow Urine Appearance Clear Urine pH 6.0 Ur Specific [place] 1.015 Urine Protein Trace Urine Glucose (UA) Negative Urine Ketones Negative Urine Blood Negative Urine Nitrite Negative Ur Leukocyte Esterase Negative Urine Opiates Screen POSITIVE H Urine Fentanyl Screen POSITIVE H Ur Barbiturates Screen Not Detected Ur Phencyclidine Scrn Not Detected Ur Amphetamines Screen POSITIVE H U Benzodiazepines Scrn POSITIVE H Urine Cocaine Screen POSITIVE H U Marijuana (THC) Screen POSITIVE H Ethyl Alcohol COVID-19 (EVANGELINA) COVID-19 [employer] Com Influenza Type A (MECHE) Negative Influenza Type B (MECHE) Negative Influenza A & B Note See Note 09/16/22 08:44 MCV MCH MCHC RDW Plt Count MPV Immature Gran % (Auto) Neut % (Auto) Lymph % (Auto) [place] % (Auto) Eos % (Auto) Baso % (Auto) Lymph # (Auto) [place] # (Auto) Eos # (Auto) Baso # (Auto) Abs Immat Gran (auto) Absolute Neuts (auto) Absolute Nucleated RBC Nucleated RBC % (auto) Smear Tech's Comments Anion Gap Estim Creat Clear Calc Estimated GFR Random Glucose Lactic Acid 2.2 H* Calcium Total Bilirubin AST ALT Alkaline Phosphatase Total Protein Albumin Urine Color Urine Appearance Urine pH Ur Specific [place] Urine Protein Urine Glucose (UA) Urine Ketones Urine Blood Urine Nitrite Ur Leukocyte Esterase Urine Opiates Screen Urine Fentanyl Screen Ur Barbiturates Screen Ur Phencyclidine Scrn Ur Amphetamines Screen U Benzodiazepines Scrn Urine Cocaine Screen U Marijuana (THC) Screen Ethyl Alcohol COVID-19 (EVANGELINA) COVID-19 [employer] [facility] Influenza Type A (MECHE) Influenza Type B (MECHE) Influenza A & B Note Assessment and Plan (1) Depression with suicidal ideation: Status: Acute (2) ENRIKE (acute kidney injury): Status: Acute Plan 47/m with IVDA use here with suicial thought and found to have ENRIKE, leukocytosis, elevated lactic acid and subjective fever 1/[facility] consult when medically clear 2/ Elevated WBC--could be related to systemic infection but no evidence at this time--There is no source of infection -SIRS (elevated WBC, tachy) BUT NO sepsis at this time -blood culture drawn and given IV Vanco empirically only until culture result in 48 hrs -elevated WBC could be reactive 3/Acute lactic acidosis--likely from renal failure, there is no sepsis to link it to 4/ ENRIKE--lkely pre renal and is expected to resolved with IVF 5/ Opioid use desorder--Methadone, addiction med consult, Ativan and Clonidine PRN for withdrawal symptoms 5/DVT prophylaxis--low risk, to ambulate and if not then lovenox Admission to span at least 2 midngint for mangement of ENRIKE, lactic acisosis, anc conern for sepsis in iv drug user Time Spent With Patient Time: Total time managing care of this patient today ____ minutes. Quality Stroke Does the patient have a stroke diagnosis?: No VTE Prior VTE?: No VTE Risk Level:: Medical - low VTE Device Contraindication: Treatment Not Indicated VTE Drug Contraindication: Treatment Not Indicated
--- NOTE | 2022-09-16 11:36 | PHA.MEDREC ---
Pharmacy Consult ? Medication Reconciliation Pharmacy has completed the medication reconciliation.
--- NOTE | 2022-09-16 12:15 | PC.NURSE ---
Multiple IV attempts, pt very difficult stick. Provider attempted ultrasound guided IV, pt aware provider will attempt again
[2022-09-16 12:44] LABS: ~Lactic Acid-LAB USE ONLY 2.6 mmol/L (0.5-2.0)
[2022-09-16] MEDS: Acetaminophen 325 MG TABLET 650 MG PO ×2 (13:02→19:49)
[2022-09-16] MEDS: cefEPime HCl 2 GM in 0.9 % Sodium Chloride 50 ML IV (13:03)
[2022-09-16] MEDS: 0.9 % Sodium Chloride 1,000 ML 999 ML IV (13:03)
--- NOTE | 2022-09-16 13:10 | MHC.RECOVRN ---
Received Addiction Medicine consult for substance use. Pt presented to the hospital for evaluation of SI, upon work up for medical clearance pt was found to have ENRIKE, lactic acidosis, concern for sepsis and has been medically admitted. Briefly met with pt in ED9 to introduce self and provide support. Pt laying in bed, blankets pulled up around face. Pt tearful during conversation, difficult to engage. Pt denies physical complaints at this time. Denies hx hospital admissions related to IV substance use. Pt is currently receiving methadone, 125 mg daily at [facility] x 2 years, which has been ordered. Pt currently has a sitter and plan for CARE Team consult when medically cleared. Pt denies questions or concerns at this time. T/w available if needed.
[2022-09-16] MEDS: Ibuprofen 600 MG TABLET PO (13:55)
--- NOTE | 2022-09-16 14:14 | PC.NURSE ---
US guided iv infiltrated, pt did receive full dose of abx prior
[2022-09-16 14:24] LABS: Reflex Lactate? 2 Y
[2022-09-16] MEDS: vancomycin/NS 2,000 MG/500 ML PLAST..BAG 250 MG IV (14:26)
[2022-09-16 15:27] VITALS: BP 91/49; PULSE 69; RESP 12; TEMP 35.8; O2SAT 97
[2022-09-16 17:30] VITALS: BP 106/58; PULSE 59; RESP 16; TEMP 36.2; O2SAT 99
[2022-09-16] MEDS: Sodium Chloride 0.45 % 1,000 ML 150 ML IVCONT (18:34)
[2022-09-16] MEDS: LORazepam 2 MG/ML VIAL 1 MG IVPUSH (19:47)
[2022-09-16 20:00] VITALS: RESP 16
[2022-09-17] MEDS: Sodium Chloride 0.45 % 1,000 ML 150 ML IVCONT ×2 (00:44→06:40)
[2022-09-17] MEDS: Ketorolac Tromethamine 30 MG/ML VIAL IVPUSH (01:12)
[2022-09-17] MEDS: cloNIDine HCL 0.1 MG TABLET PO ×3 (01:12→22:39)
[2022-09-17] MEDS: LORazepam 2 MG/ML VIAL 1 MG IVPUSH ×4 (03:14→22:39)
[2022-09-17 03:39] VITALS: BP 106/53; PULSE 61; RESP 17; TEMP 36.2; O2SAT 98
[2022-09-17] MEDS: methADONE HCl 20 MG/2 ML ORAL.CONC 125 MG PO (07:21)
[2022-09-17 07:24] LABS: Hemoglobin 12.3 g/dl (14.0-18.0); Mean Corpuscular HGB Conc 33.2 g/dl (31.0-36.0); Mean Corpuscular Hemoglobin 31.5 pg (27.0-33.0); Mean Corpuscular Volume 94.9 fL (80.0-98.0); Mean Platelet Volume 11.8 fL (9.4-12.4); Platelet Count 104 X10*3/uL (160-400); Red Cell Distribution Width 13.2 % (11.0-16.0); White Blood Count 15.9 X10*3/uL (4.8-10.8)
[2022-09-17 07:43] LABS: Anion Gap 11 (12-20); Blood Urea Nitrogen 17 mg/dL (9-16); Calcium 8.4 mg/dL (8.4-10.2); Carbon Dioxide 27 mmol/L (22-29); Chloride 103 mmol/L (96-108); Creatinine Clr Calc Pharmacy 107.7; Estimated Glomerular Filt Rate > 60; Glucose Random 127 mg/dL (60-115); Potassium 3.1 mmol/L (3.3-5.1); Sodium 138 mmol/L (135-145)
[2022-09-17 08:00] VITALS: BP 95/52; PULSE 60; RESP 18; TEMP 36.8; O2SAT 99
--- NOTE | 2022-09-17 08:14 | PHA.PROG ---
Admission Date/Time: September 16, 2022 11:50 Indication: Bacteremia Weight in k.915 kg Adjusted body weight in K.126 kg [place] body weight in K.6 kg Obesity Dosing Indication % IBW: 108% Serum Creatinine - Last 168 Hours 09/15/22 09/17/22 21:53 06:01 Creatinine 1.42 H 0.95 Estimated CrCl and GFR - Last 168 Hours 09/15/22 09/17/22 21:53 06:01 Estim Creat Clear Calc 72.1 107.7 Estimated GFR 54 > 60 Vancomycin Loading Dose: 2000 mg Current Vancomycin Dosing Regimen: 1250 mg Q12H Date and Time for next Vancomycin Level to be drawn: 09/18 @ 0600 Pharmacist Comments on Vancomycin Plan: Patient receive load dose vancomycin 2000 mg on 09/16 @ 1426 (> 12 hours ago) Maintenance dose vancomycin 1250 mg Q12H to start immediately on 09/17 @ 0800. Expected AUC 561 with a trough of 17.5. Level is schedule for prior to 4th dose Pharmacy will monitor renal function daily. Mila Salomon PharmD Vancomycin dosing will take advantage of [employer] as a clinical decision support tool that uses Bayesian modeling to calculate individual patient's pharmacokinetic parameters and forecast the patient's drug concentration time course with the target goal AUC 24 range of 400 - 600 mg/L/hr.
[2022-09-17] MEDS: vancomycin HCL 1,250 MG in 0.9 % Sodium Chloride 250 ML 166.67 MG IV ×2 (08:35→20:03)
--- NOTE | 2022-09-17 08:56 | P.PNIM_ITS ---
Subjective Subjective Date of Service: 09/17/22 Interval History: f/u on depression with si, enrike , concern for bacteremia no fever, wbc trending down, +SI Physical Exam Vital Signs: Vital Signs: Last Vital Signs Temp 98.3 F 09/17/22 08:00 Pulse 60 09/17/22 08:00 Resp 18 09/17/22 08:00 BP 95/52 L 09/17/22 08:00 Pulse Ox 99 09/17/22 08:00 O2 Del Method Room Air 09/17/22 08:00 BMI result Body Mass Index 25.1 Const: Other: General: AO X 3, no acute distress Resp: CTA bilateral CVS: S1,S2,RRR GI: +BS, NT, no distention Skin: No rash Neuro: motor grossly intact Psych: SI thoughts Objective Data Active Medications Acetaminophen (Acetaminophen 325 Mg Tablet) 650 mg PO Q6H PRN PRN Reason: Pain, Mild (Pain Scale 1-3) Last Admin: 09/16/22 19:49 Dose: 650 mg Documented By: SHONA Clonidine HCl (Clonidine Hcl 0.1 Mg Tablet) 0.1 mg PO TID PRN; Protocol PRN Reason: opioid withdrawal Last Admin: 09/17/22 01:12 Dose: 0.1 mg Documented By: SHONA Sodium Chloride (Sodium Chloride 0.45 %) 1,000 mls @ 150 mls/hr IVCONT .Q6H40M [facility] Last Admin: 09/17/22 06:40 Dose: 150 mls/hr Documented By: SHONA Vancomycin HCl 1,250 mg/ (Sodium Chloride) 250 mls @ 166.667 mls/hr IV Q12H [facility] Last Admin: 09/17/22 08:35 Dose: 166.67 mls/hr Documented By: EVERETT Lorazepam (Lorazepam 2 Mg/Ml Vial) 1 mg IVPUSH Q6H PRN PRN Reason: anxiety/restlessness Last Admin: 09/17/22 03:14 Dose: 1 mg Documented By: SHONA Magnesium Hydroxide (Milk Of Magnesia 30 Ml Oral.Susp) 30 ml PO DAILY PRN PRN Reason: Constipation Melatonin (Melatonin 3 Mg Tablet) 6 mg PO BEDTIME PRN PRN Reason: Insomnia Methadone HCl (Methadone Hcl 20 Mg/2 Ml Oral.Conc) 125 mg PO DAILY [facility] Last Admin: 09/17/22 07:21 Dose: 125 mg Documented By: EVERETT Ondansetron HCl (Ondansetron Hcl 4 Mg/2 Ml Vial) 4 mg IVPUSH Q8H PRN PRN Reason: Nausea and Vomiting Pharmacy Consult (Consult Rx Vancomycin Dosing) 1 each MISCELLANE DAILY PRN PRN Reason: Consult order Sodium Chloride (0.9 % Sodium Chloride Flush 3 Ml Syringe) 3 ml IVFLUSH QSHIFT [facility] Last Admin: 09/17/22 07:23 Dose: Not Given Documented By: EVERETT Non-Admin Reason: IV Running Labs 09/17/22 06:01 09/17/22 06:01 Labs: Laboratory Results - last 24 hr 09/16/22 09/16/22 09/16/22 08:44 12:18 12:58 MCV MCH MCHC RDW Plt Count MPV Absolute Nucleated RBC Nucleated RBC % (auto) Anion Gap Estim Creat Clear Calc Estimated GFR Random Glucose Lactic Acid 2.2 H* Lactic Acid F/U @ 2Hr 2.6 H* Lactic Acid F/U @ 4Hr Calcium Total Creatine Kinase 592 H 09/16/22 09/17/22 09/17/22 16:36 06:01 06:01 MCV 94.9 MCH 31.5 MCHC 33.2 RDW 13.2 Plt Count 104 L MPV 11.8 Absolute Nucleated RBC 0.000 Nucleated RBC % (auto) 0.0 Anion Gap 11 L Estim Creat Clear Calc 107.7 Estimated GFR > 60 Random Glucose 127 H Lactic Acid Lactic Acid F/U @ 2Hr Lactic Acid F/U @ 4Hr 2.0 Calcium 8.4 D Total Creatine Kinase Assessment and Plan (1) ENRIKE (acute kidney injury): Status: Acute (2) Depression with suicidal ideation: Status: Acute (3) Polysubstance abuse: Status: Acute Plan 47/m with IVDA use here with suicial thought and found to have ENRIKE, leuko cytosis, elevated lactic acid and subjective fever 1/Depression with SI, persistent SI thought - continue sitter -CARE consult when medically clear 2/ SIRS (Elevated WBC and tachy)--could be related to systemic infection but no evidence at this time--There is no source of infection, no sespsis -being given Vanco empirically to cover bactermia given very high risk with IVDA, stop if blood culture negative in 48 hrs 3/Acute lactic acidosis--likely from renal failure, there is no sepsis to link this 4/ ENRIKE--lkely pre renal and is has resolved with IVF 5/ Opioid use desorder--Methadone, addiction med consult, Ativan and Clonidine PRN for withdrawal symptoms 5/DVT prophylaxis--adding Levenox since not ambulating dispo plan: CARE consult tomorrow once blood cutlure negative and to be con sidered for inpatient Psych need for inaptient: management of SI, SIRS with concern of bacteremia and on IV Abx Time Spent With Patient Time: Total time managing care of this patient today ____ minutes. Quality Stroke Does the patient have a stroke diagnosis?: No VTE Prior VTE?: No VTE Risk Level:: Medical - low VTE Device Contraindication: Treatment Not Indicated VTE Drug Contraindication: Treatment Not Indicated
[2022-09-17] MEDS: Potassium Chloride ER 20 MEQ TAB.ER.PRT 40 MEQ PO (09:10)
--- NOTE | 2022-09-17 09:16 | PM.EVENT ---
Event Note Date of Service: 09/17/22 Event Note: Addiction consult placed Patient seen by consulting hr professional. Please see note from 09/16/22 Time Spent With Patient Time: Total time managing care of this patient today ____ minutes.
[2022-09-17] MEDS: Enoxaparin Sodium 40 MG/0.4 ML SYRINGE SUBCUT (10:28)
[2022-09-17] MEDS: Omeprazole 20 MG CAPSULE.DR PO (12:03)
[2022-09-17 15:22] VITALS: BP 103/55; PULSE 50; RESP 18; TEMP 36.2; O2SAT 98
--- NOTE | 2022-09-17 15:59 | MHC.CM.PN ---
CM ATTEMPTED TO MEET WITH PT WHO IS IN BED WITH COVERS UP HE DOES NOT RESPOND TO HIS NAME WHEN ADDRESSED CM TO RETURN
[2022-09-17 19:09] VITALS: BP 114/60; PULSE 56; RESP 16; TEMP 36; O2SAT 96
[2022-09-17] MEDS: 0.9 % Sodium Chloride Flush 3 ML SYRINGE IVFLUSH (20:03)
--- NOTE | 2022-09-18 | ECG_ITS ---
Test Reason : COCAINE USE Blood Pressure : / mmHG Vent. Rate : 048 BPM Atrial Rate : 048 BPM P-R Int : 110 ms QRS Dur : 098 ms QT Int : 464 ms P-R-T Axes : 051 049 032 degrees QTc Int : 414 ms Sinus bradycardia with short OR Otherwise normal ECG When compared with ECG of 23-AUG-2021 08:57, No significant change was found Referred By: Saran Saeed Electronically Signed By:LUIS ALFREDO BOONE MD
[2022-09-18 02:55] VITALS: BP 113/67; PULSE 53; RESP 16; TEMP 36.2; O2SAT 97
[2022-09-18] MEDS: Omeprazole 20 MG CAPSULE.DR PO (06:12)
[2022-09-18] MEDS: LORazepam 2 MG/ML VIAL 1 MG IVPUSH ×2 (06:29→12:24)
[2022-09-18 07:52] VITALS: BP 128/77; PULSE 66; RESP 18; TEMP 36.3; O2SAT 96
[2022-09-18] MEDS: methADONE HCl 20 MG/2 ML ORAL.CONC 125 MG PO (08:05)
[2022-09-18 08:21] LABS: Estimated Glomerular Filt Rate > 60
[2022-09-18 08:23] LABS: Blood Urea Nitrogen 12 mg/dL (9-16); Creatinine Clr Calc Pharmacy 117.6; Estimated Glomerular Filt Rate > 60; Glucose Random 112 mg/dL (60-115)
[2022-09-18 08:24] LABS: Vancomycin Random 9.3 mcg/mL (15-20)
[2022-09-18 08:32] LABS: Anion Gap 12 (12-20); Calcium 9.2 mg/dL (8.4-10.2); Carbon Dioxide 29 mmol/L (22-29); Chloride 108 mmol/L (96-108); Potassium 4.4 mmol/L (3.3-5.1); Sodium 145 mmol/L (135-145)
--- NOTE | 2022-09-18 08:32 | HE.PHANOTE ---
RE: vanco Trough on 09/18 came back at 9.3; increased dose to 1000mg Q8H, predicted AUC of 502mg/L, trough of 15.1mg/L. Next level to be drawn after 3 doses on 09/19 @0700
[2022-09-18] MEDS: vancomycin HCL 1,000 MG in 0.9 % Sodium Chloride 250 ML 270 MG IV (09:44)
[2022-09-18] MEDS: 0.9 % Sodium Chloride Flush 3 ML SYRINGE IVFLUSH ×2 (09:44→16:54)
[2022-09-18] MEDS: cloNIDine HCL 0.1 MG TABLET PO ×2 (09:44→16:56)
[2022-09-18] MEDS: Enoxaparin Sodium 40 MG/0.4 ML SYRINGE SUBCUT (12:24)
--- NOTE | 2022-09-18 12:45 | MHC.CM.PN ---
CM ATTEMPTED TO SEE PT X 2. PT BRUSHING HIS TEETH BOTH TIMES
--- NOTE | 2022-09-18 14:52 | P.PNIM_ITS ---
Subjective Subjective Date of Service: 09/18/22 Interval History: depression/si Review of Systems no fevers or chills no urinary or gi or respiratory c/o. Physical Exam Vital Signs: Vital Signs: Last Vital Signs Temp 97.3 F 09/18/22 07:52 Pulse 66 09/18/22 07:52 Resp 18 09/18/22 07:52 BP 128/77 09/18/22 07:52 Pulse Ox 96 09/18/22 07:52 O2 Del Method Room Air 09/18/22 07:52 BMI result Body Mass Index 25.1 General: AO X 3, no acute distress Resp:? CTA bilateral CVS: S1,S2,RRR GI: +BS, NT, no distention Skin: No rash Neuro:? motor grossly intact Psych: SI thoughts Objective Data Active Medications Acetaminophen (Acetaminophen 325 Mg Tablet) 650 mg PO Q6H PRN PRN Reason: Pain, Mild (Pain Scale 1-3) Last Admin: 09/16/22 19:49 Dose: 650 mg Documented By: SHONA Clonidine HCl (Clonidine Hcl 0.1 Mg Tablet) 0.1 mg PO TID PRN; Protocol PRN Reason: opioid withdrawal Last Admin: 09/18/22 09:44 Dose: 0.1 mg Documented By: ARDEN Enoxaparin Sodium (Enoxaparin Sodium 40 Mg/0.4 Ml Syringe) 40 mg SUBCUT Q24H [facility] Last Admin: 09/18/22 12:24 Dose: 40 mg Documented By: ARDEN Vancomycin HCl 1,000 mg/ (Sodium Chloride) 270 mls @ 270 mls/hr IV Q8H [facility] Last Infusion: 09/18/22 10:57 Dose: 0 mls/hr Documented By: ARDEN Lorazepam (Lorazepam 2 Mg/Ml Vial) 1 mg IVPUSH Q6H PRN PRN Reason: anxiety/restlessness Last Admin: 09/18/22 12:24 Dose: 1 mg Documented By: ARDEN Magnesium Hydroxide (Milk Of Magnesia 30 Ml Oral.Susp) 30 ml PO DAILY PRN PRN Reason: Constipation Melatonin (Melatonin 3 Mg Tablet) 6 mg PO BEDTIME PRN PRN Reason: Insomnia Methadone HCl (Methadone Hcl 20 Mg/2 Ml Oral.Conc) 125 mg PO DAILY [facility] Last Admin: 05/30/23 08:05 Dose: 125 mg Documented By: COURTNEY Omeprazole (Omeprazole 20 Mg Yohan.) 20 mg PO DAILY@629 [facility] Last Admin: 09/18/22 06:12 Dose: 20 mg Documented By: SHONA Ondansetron HCl (Ondansetron Hcl 4 Mg/2 Ml Vial) 4 mg IVPUSH Q8H PRN PRN Reason: Nausea and Vomiting Pharmacy Consult (Consult Rx Vancomycin Dosing) 1 each MISCELLANE DAILY PRN PRN Reason: Consult order Sodium Chloride (0.9 % Sodium Chloride Flush 3 Ml Syringe) 3 ml IVFLUSH QSHIFT [facility] Last Admin: 09/18/22 09:44 Dose: 3 ml Documented By: PRESTOS Labs 09/17/22 06:01 09/18/22 08:01 Labs: Laboratory Results - last 24 hr 09/18/22 09/18/22 09/18/22 08:01 08:01 08:01 Anion Gap 12 Estim Creat Clear Calc 119.0 117.6 Estimated GFR > 60 > 60 Random Glucose 112 Calcium 9.2 D Random Vancomycin 9.3 L Microbiology Microbiology Results: Microbiology 09/16/22 08:47 Blood Culture - Preliminary Blood - Venous No growth after 48 hours. 09/16/22 08:44 Blood Culture - Preliminary Blood - Venous No growth after 48 hours. Assessment and Plan (1) ENRIKE (acute kidney injury): Status: Acute (2) Depression with suicidal ideation: Status: Acute (3) Polysubstance abuse: Status: Acute Plan 47/m with IVDA use here with suicial thought and found to have ENRIKE, leukocytosis, elevated lactic acid and subjective fever 1/Depression with SI, persistent SI thought - continue sitter -CARE consult -need inpatient psych 2/ SIRS (Elevated WBC and tachy)--could be related to systemic infection but no evidence at this time--There is no source of infection, no sespsis -being given Vanco empirically to cover bactermia given very high risk with IVDA, will stop vanco-blood culture negative in 48 hrs 3/Acute lactic acidosis--likely from renal failure, there is no sepsis to link this 4/ ENRIKE-- resolved with IVF. 5/ Opioid use desorder--Methadone, addiction med consult, Ativan and Clonidine PRN for withdrawal symptoms 5/DVT prophylaxis--adding Levenox since not ambulating dispo plan: CARE consult tomorrow once blood cutlure negative and to be considered for inpatient Psych need for inaptient: inpatient psych-awaitin Time Spent With Patient Time: Total time managing care of this patient today ____ minutes. Quality Stroke Does the patient have a stroke diagnosis?: No VTE Prior VTE?: No VTE Risk Level:: Medical - low VTE Device Contraindication: Treatment Not Indicated VTE Drug Contraindication: Treatment Not Indicated
[2022-09-18 15:01] VITALS: BP 120/76; PULSE 50; RESP 16; TEMP 36.4; O2SAT 98
--- NOTE | 2022-09-18 15:39 | PM.DS ---
DS: Providers Provider Date of Service: 09/18/22 Date of admission: 09/16/22 11:50 Date of discharge: 09/18/22 Primary care physician: Unknown Physician Consults: 09/15/22 21:31 Consult to Care Team Stat Comment: Reason for consultation: si 09/16/22 11:49 Consult for Sitter Routine Reason for consultation: Depression and suicidal Has provider been notified: No 09/16/22 11:50 Addiction Medicine Routine Consulting Provider: Addiction Covering Reason for consultation: Uses everthing Has provider been notified: No 09/18/22 09:55 Consult to Care Team Routine Comment: Reason for consultation: anxiety/ Consult to Psychiatry Routine Consulting Provider: Psych Covering Reason for consultation: severe anxiety Has provider been notified: No 09/18/22 13:39 BHN [Consult to Crisis] Stat Reason for consultation: med clear -need psych placement Has provider been notified: No Attending physician on discharge: Saran Saeed Discharging clinician: Saran Saeed DS: Diagnosis Discharge Diagnosis (1) ENRIKE (acute kidney injury): Status: Acute (2) Depression with suicidal ideation: Status: Acute (3) Polysubstance abuse: Status: Acute DS: Summary Hospital Course Hospital Course: 47 yea old male with polysubstance abuse (says he uses everthing: cocaine, heroin, fentayl, marijuana) and others, says he has no family and has been feeling depressed and is suicidal. Work up for medical clearance for Psychatric admission has revealed WBC of 16 K, ENRIKE with creatine of 1.4 and elevated lactic acid of 2.2. He has no obvious source of infection, temperature is normal althogh he says he might have had cotton fever after using yesterday. He's given Vancomycin out of concern for possible bacteremia and therefore medical admission is requested before being considered for inpatient Psych. Hospital course: 57-year-old male with history of IV drug use came to the hospital because of depression with suicidal ideation, found to have Enrike I on leukocytosis and elevated lactic acid and subjective fever. Patient was admitted for depression and SI, found to have multiple drugs +in UA. Subsequently patient was admitted for possible leukocytosis, a KI, lactic acidosis. Lactic acidosis and ENRIKE seems to be resolved with IV hydration. In addition patient's blood culture due to concern of IV drug use, UA also sent as well as started on IV vancomycin: ua negative ,blood cutures neg@48 hours: Patient is currently asymptomatic, leukocytosis trending down , blood culture negative at 48 hours. Seen by recovery team patient-patient is on methadone. Patient was seen by care team: Patient needs to go to psych patient admission for depression send SI. doc to doc was done -accepting physician: Kelsi hagen. Time Spent with Patient Time attestation: Total time managing care of this patient today ____ minutes. Discharge coordination time: Greater than 30 minutes Quality: Safe Use of Opioids Does Pt have an Active Cancer Diagnosis on the Problem List?: No Quality: Stroke Does the patient have a stroke diagnosis?: No Physical Exam Vital Signs: Vital Signs: Last Vital Signs Temp 97.5 F 09/18/22 15:01 Pulse 50 09/18/22 15:01 Resp 16 09/18/22 15:01 BP 120/76 09/18/22 15:01 Pulse Ox 98 09/18/22 15:01 O2 Del Method Room Air 09/18/22 15:01 BMI result Body Mass Index 25.1 General: AO X 3, no acute distress Resp:? CTA bilateral CVS: S1,S2,RRR GI: +BS, NT, no distention Skin: No rash Neuro:? motor grossly intact Psych: SI thoughts DS: Data Data Completed and Pending Labs on day of discharge: Laboratory Results - last 24 hr 09/18/22 09/18/22 09/18/22 08:01 08:01 08:01 Sodium 145 Potassium 4.4 D Chloride 108 Carbon Dioxide 29 Anion Gap 12 BUN 12 Creatinine 0.86 0.87 Estim Creat Clear Calc 119.0 117.6 Estimated GFR > 60 > 60 Random Glucose 112 Calcium 9.2 D Random Vancomycin 9.3 L Preliminary micro results at discharge 09/16/22 08:47 Blood Culture - Preliminary Blood - Venous No growth after 48 hours. 09/16/22 08:44 Blood Culture - Preliminary Blood - Venous No growth after 48 hours. Discharge Plan Discharge Anticipated Discharge Date/Time: 09/18/22 15:59 Patient Disposition: Xfer Psychiatric Hosp Discharge Diagnosis: enrike,question of sirs. Referrals: Physician,Unknown J [Primary Care Provider] - 1 Week Discharge Medications: New magnesium hydroxide [Milk of Magnesia] 400 mg/5 mL Suspension 30 ml PO DAILY PRN (Reason: Constipation) Qty: 1 0RF clonidine HCl 0.1 mg Tablet 0.1 mg PO TID PRN (Reason: opioid withdrawal) Qty: 1 0RF Protocol: Hold for SBP< HOLD for SBP < : 90 omeprazole 20 mg Capsule,Delayed Release(Dr/Ec) 20 mg PO DAILY@0630 Qty: 1 0RF Continued methadone [Methadose] 10 mg/mL Concentrate 125 mg PO DAILY omeprazole 20 mg Capsule,Delayed Release(Dr/Ec) 20 mg PO DAILY Discharge Orders: Discharge Order (Routine); Ordered 09/18/22 Ordered By: Saran Saeed Diet: Advance to usual diet Activity on Discharge: As tolerated Stand Alone Forms: Patient Portal Discharge page Care Plan Goals: please see discharge summary. Health Concerns: please see discharge summary. Plan of Treatment: please see discharge summary.
--- NOTE | 2022-09-18 16:11 | MHC.CM.PN ---
Patient transferred to Psych floor.
== END 2022-09-18 18:23 | DRG 469 ==
LOC: HO.ED 09-16 13:07 → HO.EDOVER 09-16 13:10 → HO.S3 09-16 15:35
PROVIDERS: Emergency Medicine; Physician Assistant; Admitting Provider Internal Medicine; Emergency Provider Internal Medicine; Visit Provider Internal Medicine
DX: N17.9 Acute kidney failure, unspecified (principal); E87.21 Acute metabolic acidosis; R45.851 Suicidal ideations; F32.A Depression, unspecified; R65.10 Systemic inflammatory response syndrome (SIRS) of non-infectious origin without acute organ dysfunction; D72.829 Elevated white blood cell count, unspecified; F11.20 Opioid dependence, uncomplicated; F19.10 Other psychoactive substance abuse, uncomplicated; Z20.822 Contact with and (suspected) exposure to COVID-19; Z88.0 Allergy status to penicillin; Z79.899 Other long term (current) drug therapy
CPT/HCPCS: 36415; 80048; 80053; 80202; 80307; 81003; 82550; 82565; 83605; 85025; 85027; 87040; 87502; 87635; 93005; 99285; J0692; J1650; J1885; J2060; J3370; J3371; S9485

== ENCOUNTER 2022-09-18 17:48 | Inpatient (IN) | payer OTHER, SELFPAY ==
[2022-09-18 18:35] VITALS: BP 118/65; PULSE 50; TEMP 36.4; O2SAT 98
[2022-09-18 18:36] VITALS: BMI 25.4
[2022-09-18] MEDS: LORazepam 1 MG TABLET 2 MG PO (20:11)
[2022-09-18] MEDS: traZODone HCL 50 MG TABLET PO (20:30)
[2022-09-18 20:35] VITALS: BP 158/62; PULSE 47
[2022-09-18] MEDS: OLANZapine ODT 10 MG TAB.RAPDIS TRANSLINGU (21:38)
[2022-09-18] MEDS: hydrOXYzine HCL 25 MG TABLET PO (22:01)
--- NOTE | 2022-09-18 23:52 | PC.ADMIT ---
Patient is a 47 year old single Spanish speaking male admitted as a CV admission from [place] [address]. Patient had originally presented to the [facility] ED with depression with SI with a plan to overdose on drugs. However patient was diagnosed with SIRS in the ED and was sent to [address] [place] [address] Patient has a long history of substance use and was positive for cocaine, marijuana, amphetamines and opiates with a history of substance abuse treatment as well as noncompliance with his prescribed meds. After he was medically cleared he was evaluated by the CARE team and deemed in need of IPLOC secondary to depression with SI. He is known to the [facility] ED as well as the CARE team Apparently when patient iS feeling good he stops taking his prescribed medications and starts using street drugs. He recently used drugs with a friend and both the patient and his friend overdosed; his friend and the patient feels very guilty about surviving and his friend dying. Patient was extremely anxious on arrival to and was agitated that his medications took so long to be put into the system, and did not want to sign any legals other than the CV and 3 day notice he signed on arrival to . He denied SI, HI, AH or VH. He also refused a prn Hydroxyzine po and started yelling that he needed something stronger. He also said that he was concerned that there were bugs in his room. Staff was unable to see the bugs but patient was insistent. Dr. Gilbert was notified and orders were received. Patient was medicated with Ativan 2 mg po x 1 and then was also given a one time dose of Zyprexa for continued agitation. Dr. Gilbert aware that patient has a pulse of 48-49. Patient continued to have agitation and was given Hydroxyzine 25 mg po as a prn with some effect. Patient was able to drink several juices as well as some stacie-anne. Report passed on to dumper mold cleaner.
--- NOTE | 2022-09-19 00:25 | PC.NURSE ---
Patient signed a 3 day notice 09/18/22Saturday and is up Saturday09/21/22. Blossom Perdomo notified via telephone as well as a call to social workers.
[2022-09-19 08:40] VITALS: BP 130/80; PULSE 69; RESP 18; TEMP 36; O2SAT 99
[2022-09-19] MEDS: Omeprazole 20 MG CAPSULE.DR PO (08:45)
[2022-09-19] MEDS: methADONE HCl 20 MG/2 ML ORAL.CONC 125 MG PO (08:45)
[2022-09-19] MEDS: cloNIDine HCL 0.1 MG TABLET PO ×2 (08:54→16:57)
[2022-09-19] MEDS: hydrOXYzine HCL 25 MG TABLET PO (08:54)
[2022-09-19] MEDS: Acetaminophen 325 MG TABLET 650 MG PO (08:55)
[2022-09-19 09:23] LABS: Alanine Aminotransferase 53 U/L (0-40); Albumin Level 3.7 g/dL (3.5-5.0); Alkaline Phosphatase 91 U/L (39-117); Anion Gap 15 (12-20); Aspartate Amino Transferase 32 U/L (5-37); Bilirubin Total 0.4 mg/dL (0.0-1.0); Blood Urea Nitrogen 9 mg/dL (9-16); Calcium 9.2 mg/dL (8.4-10.2); Carbon Dioxide 27 mmol/L (22-29); Chloride 109 mmol/L (96-108); Cholesterol 138 mg/dL; Creatinine Clr Calc Pharmacy 113.7; Estimated Glomerular Filt Rate > 60; Glucose Fasting 87 mg/dL (60-99); HDL Cholesterol 37 mg/dL; LDL Cholesterol Calculated 77 mg/dl; Potassium 4.8 mmol/L (3.3-5.1); Sodium 146 mmol/L (135-145); Total Protein 6.1 g/dL (6.5-8.0); Triglycerides 122 mg/dL
--- NOTE | 2022-09-19 10:17 | P.HPPS_ITS ---
HPI Date of Service: 09/19/22 Chief Complaint: Depression with SI SIRS Sources of Information: patient interviewed, chart reviewed and crisis/core team assessment reviewed HPI Subjective Notes: Paulino Warning and Conditional Voluntary Narrative: Patient is a 47-year-old male with history of depression, PTSD opioid dependence, cocaine and meth abuse, who presents for suicidal ideation and the face of continued substance abuse and recent overdose of childhood friend. On admission patient had ENRIKE and was admitted to medical floor; kidney function improved, patient was stabilized and admitted to Psychiatry. Patient ambivalent about staying on the unit, saying he feels triggered by being on a locked unit as a reminds him of history of incarceration. However patient reports that he is significantly depressed and feeling very guilty for the of his friend since they when out and used together, patient was Narcan and and lived however his friend . Patient feeling hopeless and says he can stop seeing his friend. He says he knows how deadly using is, that he hardly even gets any high from it, hates doing it but cannot seem to stop himself. Patient agrees to get back on Zoloft which he said was helpful in the past. Also that Seroquel was helpful for anxiety. 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 He and his gf were living together x 2 years, however recently broke up and he is now homeless. Also lost his [employer] job x 18 months due to her keeping the truck, he was unable to get to work. -Per chart, pt was born and raised in [place], [place]. His parents reside in [place], has one brother who lives in [place], [place] . -Has a GED. Hx of incarceration [id number] for gun charges and other subsequent incarcerations for various charges. Substance History: Long history of opioid dependence, cocaine abuse; possible meth abuse Trauma History: History of trauma; patient did not elaborate Diagnostics Vital Signs (24Hr): Vital Signs - 24 hr 09/18/22 18:35 09/18/22 20:35 09/19/22 08:40 Temperature 97.5 F 96.8 F Pulse Rate 50 47 L 69 Respiratory Rate 18 Blood Pressure 118/65 158/62 H 130/80 Pulse Oximetry 98 99 Oxygen Delivery Method Room Air Room Air BMI result Body Mass Index 25.4 Labs 09/19/22 08:39 Labs: Laboratory Results - last 48 hr 09/19/22 08:39 Sodium 146 H Potassium 4.8 Chloride 109 H Carbon Dioxide 27 Anion Gap 15 BUN 9 Creatinine 0.82 Estim Creat Clear Calc 113.7 Estimated GFR > 60 Fasting Glucose 87 Calcium 9.2 Total Bilirubin 0.4 AST 32 ALT 53 H Alkaline Phosphatase 91 Total Protein 6.1 L Albumin 3.7 Triglycerides 122 Cholesterol 138 LDL Cholesterol, Calc 77 HDL Cholesterol 37 Meds/Allergies Meds Home Medications Medication Instructions Recorded Confirmed Type methadone 10 mg/mL oral 125 mg PO DAILY 09/16/22 09/18/22 History concentrate (Methadose) omeprazole 20 mg capsule,delayed 20 mg PO DAILY 09/16/22 09/18/22 History release Allergies Allergies Allergy/AdvReac Type Severity Reaction Status Date / Time shellfish derived Allergy Severe SWELLING, Verified 09/15/22 22:37 DIFFICULTY BREATHING Penicillins [PENICILLINS] AdvReac Unknown DEATHLY Verified 09/15/22 22:37 ILL From CLEOCIN Allergy Unknown REDNESS, Uncoded 01/07/20 18:11 BURNING FEELING Mental Status Exam Mental Status Exam Narrative: Pt is alert and oriented; behavior is cooperative, tearful, calm; patient is in emotional distress; dressed in casual attire with unkempt hair and scruffy; mood is described as a lot of depression and affect congruent, tearful, downcast; eye contact appropriate; Speech is normal rate, volume and prosody and not pressured; psychomotor retardation present; thought process is organized and goal directed; Thought content is on of his friend, feeling guilty and hopeless; otherwise pertinent to relevant topics and without any delusional content, paranoid ideations or grandiosity; intermittent SI/no HI. There is no evidence of perceptual disturbance; no AVH Patients insight and judgment impaired Assessment & Plan Assessment & Plan (1) MDD (major depressive disorder), recurrent episode, severe: Status: Acute Code(s): F33.2 - Major depressive disorder, recurrent severe without psychotic features (2) Post traumatic stress disorder (PTSD): Status: Acute Code(s): F43.10 - Post-traumatic stress disorder, unspecified (3) Opioid use disorder: Status: Acute Code(s): F11.90 - Opioid use, unspecified, uncomplicated (4) Cocaine use disorder: Status: Acute Code(s): F14.10 - Cocaine abuse, uncomplicated Plan Patient is a 47-year-old male with history of depression, PTSD opioid dependence, cocaine and meth abuse, who presents for suicidal ideation and the face of continued substance abuse and recent overdose of childhood friend. On admission patient had ENRIKE and was admitted to medical floor; kidney function improved, patient was stabilized and admitted to Psychiatry. Will admit patient for safety and medication management; patient is depressed with intermittent SI and at high risk for relapse should he discharge now Plan: CV Q 15 minute checks Will restart Zoloft Start Seroquel 75 mg Q 6 p.r.n. for anxiety Will add Ensure, vitamins Will add clonidine as p.r.n. for anxiety; Will repeat BUN/creatinine to monitor kidney function Patient educated on: diagnosis, medication risk/benefits, substance abuse and therapeutic strategies Informed Consent: understands Reason for continued inpatient stay Substantial Risk for: stable for discharge Statement Statement: I have reviewed the history and physical and performed a pertinent examination on my patient. No changes have occurred unless specified. If the History and Physical was not performed prior to admission, the Hospitalist's service will be consulted for completing the admission physical. Time Spent With Patient Time: Total time managing care of this patient today ____ minutes.
[2022-09-19] MEDS: Nicotine 21 MG PATCH.TD24 TRANSDERMA (10:56)
[2022-09-19] MEDS: QUEtiapine Fumarate 25 MG TABLET 75 MG PO (13:31)
[2022-09-19 16:50] VITALS: BP 103/59; PULSE 73; TEMP 36.2; O2SAT 98
[2022-09-19 16:59] VITALS: BP 103/59; PULSE 73; TEMP 36.2; O2SAT 98
[2022-09-19] MEDS: OLANZapine ODT 10 MG TAB.RAPDIS 5 MG TRANSLINGU (17:40)
[2022-09-19] MEDS: LORazepam 1 MG TABLET PO (17:40)
[2022-09-19] MEDS: traZODone HCL 50 MG TABLET PO (20:57)
[2022-09-19] MEDS: Melatonin 3 MG TABLET 6 MG PO (20:58)
[2022-09-20] MEDS: QUEtiapine Fumarate 25 MG TABLET 75 MG PO ×2 (01:20→13:41)
[2022-09-20] MEDS: Omeprazole 20 MG CAPSULE.DR PO (04:34)
[2022-09-20] MEDS: hydrOXYzine HCL 25 MG TABLET PO ×3 (04:34→18:24)
[2022-09-20] MEDS: Acetaminophen 325 MG TABLET 650 MG PO ×2 (04:34→15:36)
[2022-09-20] MEDS: cloNIDine HCL 0.1 MG TABLET PO ×4 (04:34→19:56)
[2022-09-20 07:00] VITALS: BMI 28.0
[2022-09-20 07:45] VITALS: BP 126/77; PULSE 52; RESP 16; TEMP 36.5; O2SAT 100
[2022-09-20] MEDS: Thiamine HCL 100 MG TABLET PO (08:08)
[2022-09-20] MEDS: Multivitamin TABLET 1 TAB PO (08:08)
[2022-09-20] MEDS: Sertraline HCL 25 MG TABLET PO (08:08)
[2022-09-20] MEDS: methADONE HCl 20 MG/2 ML ORAL.CONC 125 MG PO (08:09)
[2022-09-20 12:15] VITALS: BP 109/67; PULSE 65; RESP 16
[2022-09-20] MEDS: Nicotine 21 MG PATCH.TD24 TRANSDERMA (15:42)
--- NOTE | 2022-09-20 15:42 | P.PNPSI_ITS ---
Subjective Subjective Date of Service: 09/20/22 Reason For Visit: Depression with SI SIRS Interim History: Cafeteria Aide and nursing home social worker Met with patient; discussed with team Patient remains feeling depressed and guilty about his friend's . Intellectually he can understand that he was not at fault however emotionally he feels responsible. Patient however wants to pursue sobriety and get stable. petroleum refinery worker and development writer discussed with patient CSS program to which patient was amenable. He shared that he has had 18 months sober in the recent past and that when sober he has been able to work productively with a zayas. Despite tragic event of his friend's , patient feels grateful for the opportunity to get sober and work on his emotional issues on a deeper level. Patient shared numerous traumatic events of his life starting in childhood the struggles he has gone through. Mental Status Exam Mental Status Exam Narrative: Pt is alert and oriented; behavior is cooperative, tearful, calm; patient is in emotional distress; dressed in casual attire with unkempt hair and scruffy; mood is described as depressed and affect congruent, tearful, but not downcast; eye contact appropriate; Speech is normal rate, volume and prosody and not pressured; no psychomotor retardation present; thought process is organized and goal directed; Thought content is on of his friend, feeling guilty, but also on treatment; otherwise pertinent to relevant topics and without any delusional content, paranoid ideations or grandiosity; no SI/no HI. There is no evidence of perceptual disturbance; no AVH Patients insight and judgment impaired but significantly improved and adequate Diagnostics Vital Signs (24Hr): Vital Signs - 24 hr 09/19/22 16:59 09/19/22 16:50 09/20/22 07:45 Temperature 97.2 F 97.2 F 97.7 F Pulse Rate 73 73 52 Respiratory Rate 16 Blood Pressure 103/59 L 103/59 L 126/77 Pulse Oximetry 98 98 100 Oxygen Delivery Method Room Air Room Air Room Air 09/20/22 12:15 Temperature Pulse Rate 65 Respiratory Rate 16 Blood Pressure 109/67 Pulse Oximetry Oxygen Delivery Method BMI result Body Mass Index 28.0 Labs 09/19/22 08:39 Labs: Laboratory Results - last 48 hr 09/19/22 08:39 Sodium 146 H Potassium 4.8 Chloride 109 H Carbon Dioxide 27 Anion Gap 15 BUN 9 Creatinine 0.82 Estim Creat Clear Calc 113.7 Estimated GFR > 60 Fasting Glucose 87 Calcium 9.2 Total Bilirubin 0.4 AST 32 ALT 53 H Alkaline Phosphatase 91 Total Protein 6.1 L Albumin 3.7 Triglycerides 122 Cholesterol 138 LDL Cholesterol, Calc 77 HDL Cholesterol 37 Medications Medications Current Medications Acetaminophen (Acetaminophen 325 Mg Tablet) 650 mg PO Q6H PRN PRN Reason: Headache/Pain Mild Scale (1-3) Last Admin: 09/20/22 15:36 Dose: 650 mg Al Hydroxide/Mg Hydroxide (Magnesium Hydrox/Alum Hydrox 30 Ml Oral.Susp) 30 ml PO Q6H PRN PRN Reason: Heartburn/Nausea Clonidine HCl (Clonidine Hcl 0.1 Mg Tablet) 0.1 mg PO Q4H PRN; Protocol PRN Reason: anxiety/opioid withdrawal Last Admin: 09/20/22 15:35 Dose: 0.1 mg Clonidine HCl (Clonidine Hcl 0.1 Mg Tablet) 0.1 mg PO BEDTIME [facility]; Protocol Hydroxyzine HCl (Hydroxyzine Hcl 25 Mg Tablet) 25 mg PO Q6H PRN PRN Reason: Anxiety Last Admin: 09/20/22 12:20 Dose: 25 mg Magnesium Hydroxide (Milk Of Magnesia 30 Ml Oral.Susp) 30 ml PO DAILY PRN PRN Reason: Constipation Melatonin (Melatonin 3 Mg Tablet) 6 mg PO BEDTIME PRN PRN Reason: Insomnia Last Admin: 09/19/22 20:58 Dose: 6 mg Methadone HCl (Methadone Hcl 20 Mg/2 Ml Oral.Conc) 125 mg PO DAILY [facility] Last Admin: 09/20/22 08:09 Dose: 125 mg Multivitamins/Vitamin C (Multivitamin Tablet) 1 tab PO DAILY [facility] Last Admin: 09/20/22 08:08 Dose: 1 tab Nicotine (Nicotine 21 Mg Patch.Td24) 21 mg TRANSDERMA DAILY PRN PRN Reason: smoking cessation Last Admin: 09/19/22 10:56 Dose: 21 mg Nicotine Polacrilex (Nicotine Polacrilex 2 Mg Gum) 4 mg BUCCAL Q2H PRN PRN Reason: nicotine cravings Omeprazole (Omeprazole 20 Mg Capsule.Dr) 20 mg PO DAILY@0630 [facility] Last Admin: 09/20/22 04:34 Dose: 20 mg Quetiapine Fumarate (Quetiapine Fumarate 100 Mg Tablet) 100 mg PO Q6H PRN PRN Reason: anxiety Quetiapine Fumarate (Quetiapine Fumarate 100 Mg Tablet) 100 mg PO BEDTIME TAYA Sertraline HCl (Sertraline Hcl 50 Mg Tablet) 50 mg PO DAILY TAYA Thiamine HCl (Thiamine Hcl 100 Mg Tablet) 100 mg PO DAILY TAYA Last Admin: 09/20/22 08:08 Dose: 100 mg Trazodone HCl (Trazodone Hcl 50 Mg Tablet) 50 mg PO BEDTIME MRX1 PRN PRN Reason: Insomnia Last Admin: 09/19/22 20:57 Dose: 50 mg Allergies Allergies Allergy/AdvReac Type Severity Reaction Status Date / Time shellfish derived Allergy Severe SWELLING, Verified 09/15/22 22:37 DIFFICULTY BREATHING Penicillins [PENICILLINS] AdvReac Unknown DEATHLY Verified 09/15/22 22:37 ILL From CLEOCIN Allergy Unknown REDNESS, Uncoded 01/07/20 18:11 BURNING FEELING Assessment & Plan Assessment & Plan (1) MDD (major depressive disorder), recurrent episode, severe: Status: Acute Code(s): F33.2 - Major depressive disorder, recurrent severe without psychotic features (2) Post traumatic stress disorder (PTSD): Status: Acute Code(s): F43.10 - Post-traumatic stress disorder, unspecified (3) Opioid use disorder: Status: Acute Code(s): F11.90 - Opioid use, unspecified, uncomplicated (4) Cocaine use disorder: Status: Acute Code(s): F14.10 - Cocaine abuse, uncomplicated Plan Patient is a 47-year-old male with history of depression, PTSD opioid dependence, cocaine and meth abuse, who presents for suicidal ideation and the face of continued substance abuse and recent overdose of childhood friend. On admission patient had ENRIKE and was admitted to medical floor; kidney function improved, patient was stabilized and admitted to Psychiatry. Will admit patient for safety and medication management; patient is depressed with intermittent SI and at high risk for relapse should he discharge now Hospital course: 09/20 patient remains depressed and feeling guilty however he is also focusing himself on getting sober and stable. Agrees to CSS program. Some trouble sleeping and development writer agreed to increase Seroquel Plan: CV Q 15 minute checks Increase to Zoloft 50 mg daily for depression, PTSD Add Seroquel 100 mg q.h.s. for insomnia Add clonidine 0.1 mg q.h.s. for insomnia Increase to Seroquel 100 mg Q 6 p.r.n. for anxiety Added Ensure, vitamins Will repeat BUN/creatinine to monitor kidney function Patient educated on: diagnosis, medication risk/benefits and therapeutic strategies Informed Consent: understands Reason for continued inpatient stay Substantial Risk for: stable for discharge Time Spent With Patient Time: Total time managing care of this patient today ____ minutes.
[2022-09-20 15:52] VITALS: BP 117/69; PULSE 76; RESP 16; TEMP 36.6; O2SAT 97
[2022-09-20] MEDS: QUEtiapine Fumarate 100 MG TABLET PO ×2 (18:23→19:56)
[2022-09-20] MEDS: traZODone HCL 50 MG TABLET PO (20:31)
[2022-09-20] MEDS: Ibuprofen 800 MG TABLET PO (21:48)
[2022-09-20] MEDS: Benzocaine 20 % Oral Gel 9 GM TUBE 1 APPL MUCOUS MEM (22:21)
[2022-09-21] MEDS: QUEtiapine Fumarate 100 MG TABLET PO ×2 (03:53→10:17)
[2022-09-21 08:10] VITALS: BP 126/79; PULSE 58; RESP 16; TEMP 36.4; O2SAT 98
[2022-09-21] MEDS: Thiamine HCL 100 MG TABLET PO (08:11)
[2022-09-21] MEDS: Omeprazole 20 MG CAPSULE.DR PO (08:11)
[2022-09-21] MEDS: Sertraline HCL 50 MG TABLET PO (08:11)
[2022-09-21] MEDS: methADONE HCl 20 MG/2 ML ORAL.CONC 125 MG PO (08:11)
[2022-09-21] MEDS: Multivitamin TABLET 1 TAB PO (08:11)
[2022-09-21 08:30] LABS: Alanine Aminotransferase 62 U/L (0-40); Albumin Level 3.8 g/dL (3.5-5.0); Alkaline Phosphatase 107 U/L (39-117); Anion Gap 15 (12-20); Aspartate Amino Transferase 41 U/L (5-37); Bilirubin Total 0.4 mg/dL (0.0-1.0); Blood Urea Nitrogen 19 mg/dL (9-16); Calcium 9.5 mg/dL (8.4-10.2); Carbon Dioxide 27 mmol/L (22-29); Chloride 104 mmol/L (96-108); Creatinine Clr Calc Pharmacy 122.1; Estimated Glomerular Filt Rate > 60; Glucose Fasting 112 mg/dL (60-99); Potassium 4.6 mmol/L (3.3-5.1); Sodium 141 mmol/L (135-145); Total Protein 6.3 g/dL (6.5-8.0)
--- NOTE | 2022-09-21 12:17 | PM.PSYDC ---
DS: Providers Provider Date of Service: 09/21/22 Date of admission: 09/18/22 17:48 Date of discharge: 09/21/22 Primary care physician: Unknown Physician Attending physician on admission: Gigi Issa Consults: 09/19/22 10:16 Addiction Medicine Routine Consulting Provider: Addiction Covering Reason for consultation: Uses everthing Has provider been notified: No Attending physician on discharge: Gigi Issa DS: Diagnosis Discharge Diagnosis (1) MDD (major depressive disorder), recurrent episode, severe: Status: Acute (2) Post traumatic stress disorder (PTSD): Status: Acute (3) Opioid use disorder: Status: Acute (4) Cocaine use disorder: Status: Acute DS: Medications Discharge Medications Home Medications: Home Medications Medication Instructions Recorded Confirmed methadone 10 mg/mL oral 125 mg PO DAILY 09/16/22 09/18/22 concentrate (Methadose) omeprazole 20 mg capsule,delayed 20 mg PO DAILY 09/16/22 09/18/22 release Previous Rx's Medication Instructions Recorded clonidine HCl 0.1 mg tablet 0.1 mg PO TID PRN opioid 09/18/22 withdrawal #1 tab magnesium hydroxide 400 mg/5 mL 30 ml PO DAILY PRN Constipation #1 09/18/22 oral suspension (Milk of Magnesia) mL benzocaine 20 % mucosal gel 1 appl mucous membrane TID PRN 09/21/22 (Anbesol (benzocaine) Maximum Pain, Moderate(Pain Scale 4-6) 30 Strength) days #9 grams clonidine HCl 0.1 mg tablet 0.1 mg PO Q4H PRN anxiety/insomnia 09/21/22 30 days #90 tabs hydroxyzine HCl 25 mg tablet 25 mg PO Q6H PRN Anxiety 30 days 09/21/22 #90 tabs melatonin 3 mg tablet 6 mg PO BEDTIME PRN Insomnia 30 09/21/22 days #60 tabs multivitamin 1 tab PO DAILY 30 days #30 tabs 09/21/22 nicotine 21 mg/24 hr daily 21 mg transdermal DAILY PRN 09/21/22 transdermal patch smoking cessation 28 days #28 ea omeprazole 20 mg capsule,delayed 20 mg PO DAILY 30 days #30 caps 09/21/22 release prazosin 1 mg capsule 1 mg PO BEDTIME 30 days #30 caps 09/21/22 quetiapine 100 mg tablet 100 mg PO BEDTIME 30 days #30 tabs 09/21/22 quetiapine 100 mg tablet 100 mg PO Q6H PRN anxiety 30 days 09/21/22 #60 tabs sertraline 50 mg tablet 50 mg PO DAILY 30 days #30 tabs 09/21/22 thiamine mononitrate (vit B1) 100 100 mg PO DAILY 30 days #30 tabs 09/21/22 mg tablet trazodone 50 mg tablet 50 mg PO BEDTIME PRN Insomnia 30 09/21/22 days #30 tabs Mental Status Exam Mental Status Exam Narrative: Pt is alert and oriented; behavior is cooperative, calm; dressed in casual attire with adequate hygiene; mood is described as depressed and affect congruent, but not downcast; eye contact appropriate; Speech is normal rate, volume and prosody and not pressured; no psychomotor retardation present; thought process is organized and goal directed; Thought content is on of his friend, feeling guilty, but also on treatment; otherwise pertinent to relevant topics and without any delusional content, paranoid ideations or grandiosity; no SI/no HI. There is no evidence of perceptual disturbance; no AVH Patients insight and judgment fair and adequate Data Data Completed and Pending Completed studies during hospitalization [Text1]: 09/19/22 09/21/22 08:39 07:40 Sodium 146 H 141 Potassium 4.8 4.6 Chloride 109 H 104 Carbon Dioxide 27 27 Anion Gap 15 15 BUN 9 19 H Creatinine 0.82 0.83 Estim Creat Clear Calc 113.7 122.1 Estimated GFR > 60 > 60 Fasting Glucose 87 112 H Calcium 9.2 9.5 Total Bilirubin 0.4 0.4 AST 32 41 H ALT 53 H 62 H Alkaline Phosphatase 91 107 Total Protein 6.1 L 6.3 L Albumin 3.7 3.8 Triglycerides 122 Cholesterol 138 LDL Cholesterol, Calc 77 HDL Cholesterol 37 DS: Summary Hospital Course Hospital Course: Patient is a 47-year-old male with history of depression, PTSD opioid dependence, cocaine and meth abuse, who presents for suicidal ideation and the face of continued substance abuse and recent overdose of childhood friend.? On admission patient had ENRIKE and was admitted to medical floor; kidney function improved, patient was stabilized and admitted to Psychiatry. Once on psych unit, pt was depressed, feeling guilty, but SI resolved. Pt was able to process his feelings and though still depressed, started becoming hopeful of again pursuing sobriety. Pt restarted on Zoloft and Seroquel; had nightmares and started on Prazosin. Repeat labs and kidney function remained WNL. Pt wanted treatment and decided to attend [facility]. He was accepted. Given patients long hx of severe substance abuse, he chronically remains at risk for relapse and dysregulation; however, he is future oriented and hopeful and discharging to a structured environment that treats both substance abuse issues and other mental health problems. Pt not in imminent risk for harm to self or others and appropriate to continue treatment in the community. Time spent discussing smoking cessation with patient: 3 to 10 minutes Status at Discharge Functional status at discharge: independent ambulation Overall status at discharge: patient is progressing back to baseline Time Spent with Patient Time attestation: Total time managing care of this patient today ____ minutes. Time spent: Greater than 30 minutes Discharge Plan Discharge Anticipated Discharge Date/Time: 09/21/22 12:14 Patient Disposition: Home, Self-Care Discharge Diagnosis: MDD, recurrent, severe in partial remission Referrals: Physician,Unknown J [Primary Care Provider] - 1 Week (pt refered to [address] [phone]) Discharge Medications: New nicotine 21 mg/24 hr Patch 24 Hour 21 mg transdermal DAILY PRN (Reason: smoking cessation) 28 Days Qty: 28 0RF clonidine HCl 0.1 mg Tablet 0.1 mg PO Q4H PRN (Reason: anxiety/insomnia) 30 Days Qty: 90 0RF Protocol: Hold for SBP< HOLD for SBP < : 90 prazosin 1 mg Capsule 1 mg PO BEDTIME 30 Days Qty: 30 0RF Protocol: Hold for SBP< HOLD for SBP < : 90 acetaminophen 325 mg Tablet 650 mg PO Q6H PRN (Reason: Headache/Pain Mild Scale (1-3)) Qty: 0 0RF hydroxyzine HCl 25 mg Tablet 25 mg PO Q6H PRN (Reason: Anxiety) 30 Days Qty: 90 0RF quetiapine 100 mg Tablet 100 mg PO BEDTIME 30 Days Qty: 30 0RF quetiapine 100 mg Tablet 100 mg PO Q6H PRN (Reason: anxiety) 30 Days Qty: 60 0RF sertraline 50 mg Tablet 50 mg PO DAILY 30 Days Qty: 30 0RF trazodone 50 mg Tablet 50 mg PO BEDTIME PRN (Reason: Insomnia) 30 Days Qty: 30 0RF Anbesol (benzocaine) Max Str 20 % Gel 1 appl mucous membrane TID PRN (Reason: Pain, Moderate(Pain Scale 4-6)) 30 Days Qty: 9 0RF Protocol: Apply to: Apply to: teeth MAG-AL 200-200 mg/5 mL Suspension 30 ml PO Q6H PRN (Reason: Heartburn/Nausea) Qty: 0 0RF melatonin 3 mg Tablet 6 mg PO BEDTIME PRN (Reason: Insomnia) 30 Days Qty: 60 0RF multivitamin Tablet 1 tab PO DAILY 30 Days Qty: 30 0RF thiamine mononitrate (vit B1) 100 mg Tablet 100 mg PO DAILY 30 Days Qty: 30 0RF omeprazole 20 mg Capsule,Delayed Release(Dr/Ec) 20 mg PO DAILY 30 Days Qty: 30 0RF Continued methadone [Methadose] 10 mg/mL Concentrate 125 mg PO DAILY magnesium hydroxide [Milk of Magnesia] 400 mg/5 mL Suspension 30 ml PO DAILY PRN (Reason: Constipation) Qty: 1 0RF Changed omeprazole 20 mg Capsule,Delayed Release(Dr/Ec) 20 mg PO DAILY 30 Days Qty: 30 0RF Discontinued omeprazole 20 mg Capsule,Delayed Release(Dr/Ec) 20 mg PO DAILY clonidine HCl 0.1 mg Tablet 0.1 mg PO TID PRN (Reason: opioid withdrawal) Qty: 1 0RF Protocol: Hold for SBP< HOLD for SBP < : 90 Discharge Orders: Discharge Order (Routine); Ordered 09/21/22 Ordered By: Gigi Issa Diet: Regular diet Activity on Discharge: As tolerated Stand Alone Forms: Patient Portal Discharge page, Community Support Care Plan Goals: Maintain mood and safe behaviors Take medications as prescribed Continue to pursue sobriety Practice coping skills Continue with outpatient providers and reach out to them as needed Health Concerns: Mood stability and behaviors Sobriety Plan of Treatment: Follow up with your PCP, psychiatric provider and other outpatient providers regarding above concerns Take medications as prescribed Assessment: Risk assessment at time of discharge:? Patient was interviewed prior to discharge and found to be fully oriented and without any SI or HI. Patient has insight and demonstrates good judgment in terms of wanting to pursue treatment. Patient is not in imminent risk of harm to self or others and has a safety plan that includes presenting to the closest ER or calling 911 if feeling unsafe.? Patient has been observed closely by nursing and unit staff throughout admission; patient has not engaged in any behaviors that suggest dangerousness to self or others and has demonstrated appropriate behaviors and impulse control
== END 2022-09-21 13:15 | disposition home or self-care (01) | DRG 751 ==
PROVIDERS: Admitting Provider Psychiatry & Neurology Psychiatry; Visit Provider Psychiatry & Neurology Psychiatry
DX: F33.2 Major depressive disorder, recurrent severe without psychotic features (principal); R45.851 Suicidal ideations; F43.10 Post-traumatic stress disorder, unspecified; F11.20 Opioid dependence, uncomplicated; F15.10 Other stimulant abuse, uncomplicated; F14.10 Cocaine abuse, uncomplicated; Z59.02 Unsheltered homelessness; Z88.0 Allergy status to penicillin; Z79.899 Other long term (current) drug therapy
CPT/HCPCS: 36415; 80053; 80061